=== PATIENT | male | born 1950 | race Caucasian/White ===

== ENCOUNTER 2016-06-10 07:42 | Inpatient (IN) | payer OTHER ==
[~2016-06-10] VITALS: Ht 188 cm; Wt 101.0 kg
--- NOTE | 2016-06-10 08:04 | RADRPT ---
PROCEDURE: CT Brain without. CLINICAL INDICATION: Weakness TECHNIQUE: A CT of the brain was performed utilizing axial sections from the skull base through th e vertex without contrast. The scan was reviewed in soft tissue brain and high frequency resolution bone algorithm windows. Images were reviewed on a high-resolution PACS workstation. The exam CTDI = 45.01 mGy, and the DLP = 720.23 mGy-cm. COMPARISON: None available FINDINGS: There is a right thalamic hemorrhage measuring 2.9 x 2.6 x 1.7 cm. Hemorrhage is seen within the fr ontal horns of the lateral ventricles, third and fourth ventricles. There is mild dilatation of the right lateral ventricle. There is midline shift of the septum pellucidum to the left measuring ritu roximately 5.8 mm. The sood-white differentiation is well preserved. The basal cisterns are patent. The posterior fossa is unremarkable. Vascular calcifications are noted within the intracranial por tions of the vertebral and internal carotid arteries. The visualized portions of the orbits are unremarkable. The paranasal sinuses and mastoid air cells are clear. No calvarial fracture or abnormality are identified. The soft tissues are unremarkable . IMPRESSION: 1. Right thalamic hemorrhage measuring 2.9 x 2.6 x 1.7 cm. There is hemorrhage noted within the fr ontal horn of the lateral ventricles, third and fourth ventricles. 2. Mild dilatation of the right lateral ventricle. The septum pellucidum is shifted to the left ap proximately 5.8 mm. 3. Arterial atherosclerosis. Critical results were discussed with Dr. Carrillo on 06/10/2016 at 8:00 AM RPTAT: HH .Sadie Ireland MD, Date Time Electronically viewed and signed by .Sadie Ireland MD, on 06/10/2016 08:04 .Amauri/
[2016-06-10 08:06] LABS: BASOPHILS % 0.4 % (0.0-2.0); EOSINOPHILS % 0.9 % (0.0-7.0); HEMATOCRIT 41.8 % (42.0-52.0); HEMOGLOBIN 14.2 g/dl (14.0-18.0); LYMPHOCYTES # 0.8 10^3/ul (0.8-2.9); LYMPHOCYTES % 15.9 % (15.0-51.0); MEAN CORPUSCULAR HEMOGLOBIN 32.8 pg (29.0-33.0); MEAN CORPUSCULAR VOLUME 96.5 fl (82.0-101.0); MEAN PLATELET VOLUME 6.9 fl (7.4-10.4); MONOCYTE # 0.5 10^3/ul (0.3-0.9); NEUTROPHIL # 3.7 10^3/ul (1.6-7.5); NEUTROPHILS % 73.8 % (39.0-77.0); PLATELET COUNT 179 10^3/UL (140-440); RED BLOOD COUNT 4.34 10^6/ul (4.70-6.10); RED CELL DISTRIBUTION WIDTH 13.4 % (11.5-14.5)
--- NOTE | 2016-06-10 08:06 | ERA ---
ER Documentation Chief Complaint Date/Time DATE: 06/10/16 TIME: 08:02 Chief Complaint HPI 65-year-old male history of hypertension who presents with sudden severe headache via EMS. The patient was a stroke code from the field because of headache and left-sided deficits. It appears that 1 hour prior to arrival patient describes sudden onset of right-sided severe headache that was described as 10 out of 10. He denies any motor weakness however EMS noted that the patient was listing slightly to the left with some delay in motor movement of the left upper extremity. The patient states that his headache is now 4 out of 10. He denies any vision changes, no prodrome of chest pain or shortness of breath, no neck pain. ROS All systems reviewed and are negative except as per history of present illness. Medications Home Meds Reported Medications Losartan Potassium* (Losartan Potassium*) 100 Mg Tablet, 100 MG PO DAILY, TAB 06/10/16 Amlodipine Besylate* (Amlodipine Besylate*) 10 Mg Tablet, 10 MG PO DAILY, #30 TAB 06/10/16 Allergies Allergies: Coded Allergies: No Known Allergy (Unverified , 06/10/16) PMhx/Soc Hypertension FmHx Family History: No diabetes Physical Exam Vitals Vital Signs Date Time Temp Pulse Resp B/P Pulse Ox O2 Delivery O2 Flow Rate FiO2 06/10/16 08:04 Nasal Cannula 2 06/10/16 08:02 97.6 74 18 135/80 99 Physical Exam General: Well developed, well nourished, no acute distress Head: Normocephalic, atraumatic. Eyes: Pupils equally reactive, EOM intact ENT: Moist mucous membranes Neck: Supple, no lymphadenopathy Respiratory: Lungs clear bilaterally, no distress Cardiovascular: RRR, no murmurs, rubs, or gallops Abdominal: Soft, non-tender, non-distended, no peritoneal signs : Deferred MSK: No edema, no unilateral swelling, 5/5 strength Neurologic: Alert and oriented, moving all extremities, normal speech, no focal weakness, no cerebellar signs, no pronator drift, normal rapid alternating movements Skin: No rash Psych: Normal mood Result Diagram: 06/10/16 0750 06/10/16 0750 Results 24 hrs Laboratory Tests Test 06/10/16 07:50 Activated Partial Thromboplast Time 20.9Sec Anion Gap 13 Basophils # 0.010^3/ul Basophils % 0.4% Blood Morphology Comment Blood Urea Nitrogen 22mg/dl Calcium Level 9.4mg/dl Carbon Dioxide Level 28mmol/L Chloride Level 103mmol/L Creatinine 0.96mg/dl Eosinophils # 0.010^3/ul Eosinophils % 0.9% Glucose Level 118mg/dl Hematocrit 41.8% Hemoglobin 14.2g/dl Hemoglobin A1c 5.1% INR International Normalized Ratio 0.93 Lymphocytes # 0.810^3/ul Lymphocytes % 15.9% Mean Corpuscular Hemoglobin 32.8pg Mean Corpuscular Hemoglobin Concent 34.0g/dl Mean Corpuscular Volume 96.5fl Mean Platelet Volume 6.9fl Monocytes # 0.510^3/ul Monocytes % 9.0% Neutrophils # 3.710^3/ul Neutrophils % 73.8% Nucleated Red Blood Cells # 0.010^3/ul Nucleated Red Blood Cells % 0.0/100WBC Platelet Count 21064^3/UL Potassium Level 4.4mmol/L Prothrombin Time 12.5Sec Prothrombin Time Ratio 1.0 Red Blood Count 4.3410^6/ul Red Cell Distribution Width 13.4% Sodium Level 140mmol/L Troponin I < 0.010ng/ml White Blood Count 5.010^3/ul Procedures/MDM EKG, MONITORS, & DIAGNOSTIC IMAGING: EKG: I reviewed and interpreted a 12-lead EKG. Rhythm: Normal sinus rhythm Ectopy: None Arrhythmia: None Intervals: No abnormalities ST segments: No elevations or depressions T waves: No contiguous inversions Interpretation: No acute cardiac ischemia Chest x-ray: I reviewed and interpreted a 1 view of the chest Mediastinum: No enlargement Cardiac silhouette: No cardiomegaly Airspace: Clear lung arboleda bilaterally without evidence of pneumothorax Bones: No evidence of fracture Interpretation: No acute cardiopulmonary process CT Brain: Verbal report with a right thalamic acute hemorrhage with slight shift of the septum pellucidum but no falcine midline shift FORMAL IMPRESSION: 1. Right thalamic hemorrhage measuring 2.9 x 2.6 x 1.7 cm. There is hemorrhage noted within the frontal horn of the lateral ventricles, third and fourth ventricles. 2. Mild dilatation of the right lateral ventricle. The septum pellucidum is shifted to the left approximately 5.8 mm. 3. Arterial atherosclerosis. CTA Head and Neck: PENDING LAB INTERPRETATION: No coagulopathy MEDICAL DECISION MAKING: The patient presents with sudden onset of headache. He has some subtle left- sided deficits that appear to be improving. His sudden onset of headache is very concerning for possible intracranial hemorrhage. Consider possible subarachnoid hemorrhage versus hemorrhagic bleed. The patient did have some transient left-sided neurologic deficits, the patient was called as a stroke code from the field and taken directly to CT. ER COURSE: Stroke assessment and timing: Onset of symptoms: Approximately 6:45 AM Arrival to ED: 7:47 AM Stroke code activation: 7:42 AM Patient taken to CT scan: 7:47 AM Patient returns from CT: 7:54 AM Initial neurology evaluation: Not required Conversation(s) with neurology: 809AM NIHSS: 0 TPA decision-making: The patient is not a TPA candidate given intracranial hemorrhage Stroke neurologist on-call: Dr. Rey Neurosurgeon on-call: Dr. Calles Recommendations: CTA head and neck, repeat CAT scan in the morning, blood pressure was systolic less than 140 no seizure medications. Likely medical management, no indication for surgical intervention at this time. Dr. calles is en route to see the patient. Critical Care Note: Total time: 43 minutes Indication/Organ System Threat: Acute neurologic deficit and stroke code activation that requires emergent evaluation and assessment to prevent neurologic compromising collapse. I spent the above amount of critical care time with the patient, not including billable procedures. This included chart review, consultations, repeat bedside evaluations, and titration of appropriate medications to prevent cardiopulmonary or respiratory collapse. I kept the patient and/or family informed of laboratory and diagnostic imaging results throughout the emergency room course. DISPOSITION PLAN: Intensive care unit CONSULTATION: Accepting care team and consultations: I discussed the current laboratory data, diagnostic imaging and emergency care provided. Admitting team: Dr. Hollis Admitting team indication: Insurance directed Consulting services: Dr. calles, neurosurgery Departure Diagnosis: Primary Impression: Hemorrhagic stroke Condition: ELE Ellis MD Jun 10, 2016 08:06
[2016-06-10 08:07] LABS: CONDITION 1
[2016-06-10 08:15] LABS: INR 0.93; PROTIME 12.5 Sec (12.2-14.2)
[2016-06-10 08:16] LABS: PARTIAL THROMBOPLASTIN TIME 20.9 Sec (25.0-35.0)
--- NOTE | 2016-06-10 08:22 | RADRPT ---
PROCEDURE: XR Chest. CLINICAL INDICATION: Stroke. TECHNIQUE: Single frontal chest x-ray. COMPARISON: None available. FINDINGS: The cardiomediastinal silhouette is unremarkable. Aortic atherosclerotic vascular calcifications are identified. Mild bibasilar subsegmental atelectasis is noted. No pneumothorax, pleural effusion or consolidatio n is seen. No acute osseous abnormality is noted. IMPRESSION: 1. Mild bibasilar subsegmental atelectasis. 2. Aortic atherosclerosis. 3. Otherwise no acute cardiopulmonary abnormality. RPTAT: UU .Jacobo Prcie MD, MD Date Time Electronically viewed and signed by .Jacobo Price MD, on 06/10/2016 08:21 .N/
[2016-06-10 08:23] LABS: CHLORIDE 103 mmol/L (97-110); POTASSIUM 4.4 mmol/L (3.5-5.1); SODIUM 140 mmol/L (135-144)
[2016-06-10] MEDS ORDERED: AMLO-147 PO (08:24)
[2016-06-10] MEDS ORDERED: LOSA100T7 PO (08:25)
[2016-06-10 08:26] LABS: ANION GAP 13 (8-16); BLOOD UREA NITROGEN 22 mg/dl (7-20); CARBON DIOXIDE 28 mmol/L (21-31); CREATININE 0.96 mg/dl (0.61-1.24); GLUCOSE 118 mg/dl (70-220)
[2016-06-10 08:27] LABS: CALCIUM 9.4 mg/dl (8.4-10.2)
[2016-06-10 08:42] LABS: TROPONIN-I < 0.010 ng/ml (0.00-0.12)
[2016-06-10] MEDS ORDERED: IOHEXOL 100 ML ONE (09:22)
[2016-06-10] MEDS ORDERED: SOD CHLORIDE 0.9% 100 ML ONE (09:22)
[2016-06-10] MEDS ORDERED: morphine 4 MG/ML VIAL IV STA (09:51)
[2016-06-10] MEDS ORDERED: ONDANSETRON 4 MG INJ IV STA (09:51)
[2016-06-10] MEDS ORDERED: niCARdipine-D5W 0.1MG/ML DRIP 200 ML IV STA (09:51)
--- NOTE | 2016-06-10 10:26 | RADRPT ---
PROCEDURE: CTA head and neck CLINICAL INDICATION: Weakness. Intracranial hemorrhage. History of hypertension. TECHNIQUE: The study was performed utilizing multidetector CT scanner. Direct thin section axial s ections were obtained through the head and neck after the uneventful administration of 85 cc of Omni paque-350 nonionic intravenous contrast material. Coronal and sagittal as well as maximal intensity projection reformations were obtained. 3-D images were made. The images were reviewed on a PACS [employer]. One or more the following does reduction techniques were utilized: Automated exposure con trol, adjustment of themA/ or kV according to patient's size, or use of iterative reconstruction sade hnique. The total CTDIvol is 82.5, 17.34 mGy and the DLP is 768.69 mGy-cm. COMPARISON: Brain CT of the same day. FINDINGS: CTA NECK: The origins of the great vessels off the aortic arch are patent without significant stenosis. Mild a therosclerotic calcifications of bilateral carotid bulbs are noted without significant associated st enosis by NASCET criteria. The common carotid and internal carotid arteries are patent without signi ficant stenosis by NASCET criteria. Direct measurement of distal internal carotid arteries was perfo rmed. The vertebral arteries are also patent without high-grade stenosis. CTA BRAIN: Right thalamic hemorrhage measuring 3 cm in maximum diameter without significant interval change com pared to recent brain CT. Intraventricular hemorrhage is again noted within the frontal horn of the lateral ventricles, third and fourth ventricles. There is significant mass effect on third ventricle and approximately 6 mm leftward midline shift as well as similar mild dilatation of the right later al ventricle concerning for trapping . The internal carotid arteries demonstrate mild atherosclerotic calcifications without significant st enosis. The proximal middle cerebral arteries and anterior cerebral arteries are patent without sign ificant stenosis. Atherosclerotic calcification of proximal bilateral intradural vertebral arteries are noted with associated moderate stenosis on the left and mild on the right. The remainder of in tracranial vertebral arteries, basilar artery, and posterior cerebral arteries are also unremarkable without significant stenosis. No aneurysm or vascular malformation is identified. Paranasal sinuses demonstrate mild to moderate scattered mucosal thickening more pronounced in maxil karissa sinuses, ethmoid air cells and left sphenoid sinus. There are multilevel moderate to marked degenerative changes of cervical spine with decreased disk spaces and osteophytosis most pronounced at C6-C7. Posterior disk osteophyte complex at C6-C7 contr ibutes to moderate spinal canal stenosis. This study is not tailored to assess these. IMPRESSION: 1. Similar right thalamic and intraventricular hemorrhage without significant interval change gene red to recent brain CT. Significant mass effect on third ventricle and approximately 6 mm leftward m idline shift as well as similar mild dilatation of the right lateral ventricle concerning for hydroc ephalus and trapping 2. No CTA evidence of aneurysm or vascular malformation. However recommend follow-up CTA after reso lution of the hematoma to exclude underlying lesion. 3. Moderate left and mild right stenosis of the proximal intradural vertebral artery. 4. Otherwise mild scattered atherosclerosis without significant stenosis of major intracranial and neck arteries. Critical result: A call report was made and above findings were discussed and acknowledged by Dr. Fransisco salas on 06/10/2016 10:06 AM. RPTAT: UU .Jacobo Price MD, Date Time Electronically viewed and signed by .Jacobo Price MD, on 06/10/2016 10:26 .N/
[2016-06-10] MEDS ORDERED: ACETAMINOPHEN 325 MG TAB PO PRN (11:30)
[2016-06-10] MEDS ORDERED: ACETAMINOPHEN 650MG/20.3ML CUP PO PRN (11:30)
[2016-06-10] MEDS ORDERED: hydrALAzine 20 MG INJ IV PRN (11:30)
[2016-06-10] MEDS ORDERED: ONDANSETRON 4 MG INJ IV PRN (11:30)
[2016-06-10] MEDS ORDERED: DOCUSATE SODIUM 100 MG CAP PO PRN (11:30)
[2016-06-10] MEDS ORDERED: NITROGLYCERIN (SL) 0.4 MG TAB SL PRN (11:30)
--- NOTE | 2016-06-10 12:11 | CONS ---
DATE OF ADMISSION: 06/10/2016 DATE OF CONSULTATION: 06/10/2016 TYPE OF CONSULTATION: Neurology. REQUESTING PHYSICIAN: Dr. Mario Carrillo INDICATION FOR CONSULTATION: Intracranial hemorrhage. HISTORY OF PRESENT ILLNESS: The patient is a 65-year-old right-handed male with history of hypertension who presented to the ER after having sudden onset of headaches. The patient stated that he felt he almost was going to pass out, but did not. He also felt some generalized weakness on his left side. Emergency services were called and the patient was brought to the ER. The patient's headache has somewhat improved, but he states he still feels some pressure behind his eyes. He denies any visual changes such as double vision or blurry vision, numbness, tingling, weakness or bowel or bladder issues. He denies any speech difficulties. A CT scan of the head was performed which showed a left thalamic bleed approximately 2 x 2 cm with extension into the ventricular system with some blood in the third and fourth ventricles as well as the right lateral ventricle. There is some asymmetry and slight dilatation of the right frontal horn compared to the left. PAST MEDICAL HISTORY: Significant for hypertension. Patient denies diabetes, respiratory renal or gastrointestinal problems. PAST SURGICAL HISTORY: Significant for gastric band surgery 7 years ago. MEDICATIONS: Include: 1. Losartan. 2. Amlodipine. ALLERGIES: NO KNOWN DRUG ALLERGIES. FAMILY HISTORY: The patient has a sister who has had multiple strokes. SOCIAL HISTORY: The patient is single. He has a daughter. He is a nonsmoker, but admits to drinking alcohol daily, generally hard liquor. He states a few glasses. He denies any symptoms if he does not drink for a few days. 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 REVIEW OF SYSTEMS: A 12-point review of systems performed. Pertinent positives and negatives listed in history of present and below. CONSTITUTIONAL: Denies fevers, chills, or weight loss. HEMATOLOGIC: Denies any history of easy bruising or bleeding. Patient denies taking any blood thinning medications. PHYSICAL EXAMINATION: VITAL SIGNS: The patient's temperature 97.6, pulse 74, respirations 18, blood pressure 135/80, though it has gone up to 170/110 and saturating 99% on room air. GENERAL: The patient is well-developed, well-nourished, late middle-aged male lying in the hospital bed in no acute distress. HEAD AND NECK: The patient is normocephalic, atraumatic. LUNGS: Clear to auscultation. CARDIAC: Regular rate and rhythm. VASCULAR: No carotid bruit bilaterally. 2+ radial and dorsalis pedis pulses. EXTREMITIES: No clubbing, cyanosis, or edema. ABDOMEN: Nontender, nondistended, soft. NEUROLOGIC: The patient is awake, alert, and oriented x3. Speech is fluent though he has some slight dysarthric. He follows commands readily and appropriately. He has intact remote, immediate and recent memory and has normal attention and concentration, although he does appear to have some slight word finding problems. Cranial nerves II through XII were serially tested and are intact: Specifically II: visual arboleda full to confrontation and normal visual acuity corrected. III, IV and : Extraocular muscles intact but patient may have a slight left medial deviation of the left eye and therefore some disconjugate gaze, though again he denies any diplopia. V: Normal facial sensation bilaterally. VII: Face symmetrical dynamically and statically. VIII : Grossly normal auditory acuity. IX: Symmetrical palate raise. XI: 5/5 sternocleidomastoid muscle and shoulder shrug. XII: No tongue deviation when protruded. His motor exam is 5/5 bilaterally upper and lower extremities, though he may have a slight left pronator drift. Deep tendon reflexes are 1+ throughout with no clonus, Babinski, or Alexi sign. The patient reports normal sensation and light touch throughout. Gait not assessed secondary to condition. LABORATORY DATA: Patient's white count 5.0, hemoglobin 14.2, platelets 179. His coagulation panels PT of 12.5, INR of 0.93. Sodium was 140, BUN and creatinine 22 and 0.96 and a glucose of 118. REVIEW OF RADIOGRAPHIC RESULTS: The patient had a CT of the brain as well as CT angiogram 2 hours later. The radiologist, Dr. Sadie Ireland impression is the patient has a right thalamic hemorrhage measuring 2.9 x 2.6 x 1.7 cm and a hemorrhage in the right frontal horn and lateral ventricle, third and fourth ventricles. There is mild dilatation of the right lateral ventricle and a septum pellucidum was shifted approximately 5.8 mm to the left and there is arterial atherosclerosis. I reviewed this study and agree with this interpretation. I also reviewed the CT angiogram which does not have a formal report yet but per Dr. Carrillo who spoke to the radiologist, there was no evidence of any vascular abnormality. I do not see evidence of an AVM or aneurysm on my evaluation. The ventricular size and bleed appears stable in the interval scan. ASSESSMENT AND PLAN: A 62-year-old male with thalamic hemorrhage with intraventricular extension. I discussed recent signs, symptoms, physical exam, and radiographic findings with the patient. I discussed the nature of hemorrhagic strokes as well as intraventricular hemorrhage. I explained that such strokes generally do not show benefit from operative decompression or intervention. However, the patient may develop hydrocephalus that may be symptomatic to require a ventriculostomy or possible shunt. I discussed these procedures and the indications. The patient only appears to be clearly symptomatic from a headache and otherwise awake, alert and following commands. I explained that should his neurologic exam significantly deteriorate and then a repeat CT can be performed to assess for any progressive dilatation of ventricles. Otherwise, the patient should simply have a repeat CT scan in the morning. I explained that typically the bleeding will not progress after 24 hours, though he still has a risk of progressive hydrocephalus for a couple of days or perhaps in a delayed fashion. I explained the blood may clear out and the patient may be able to clear the blood and resume normal circulation, but the patient should be observed as this may not occur and the patient may develop increasing pressure. The patient will therefore be admitted to ICU for observation by the medical service. Anticonvulsants are not generally indicated. The patient has normal coagulation panel now. Normal coagulation numbers and platelet function should be normal as he denies taking any medications. Blood pressure should be maintained systolic less than 150 and the patient is currently on Cardene, being titrated to lower the blood pressure. The patient expressed understanding and agreement with this plan of care. Billing note greater than 60 minutes critical care, neurologic system. Dictated By: ANATOLIY CAMPOS MD, LG/CHELY Conf#: [id number] DID#: [id number] CC: MARIO CARRILLO MD;*EndCC* MTDD
--- NOTE | 2016-06-10 12:16 | CONS ---
Date/Time of Note Date/Time of Note DATE: 06/10/16 TIME: 12:00 Assessment/Plan Assessment/Plan Chief Complaint/Hosp Course 65 year old M with hx of hypertension, essential tremor presents with severe headache in the setting of acute right thalamic hemorrhage and elevated blood pressure. Initial CTH shows acute right thalamic hemorrhage 2.9 x 2.6 x 1.7 cm with intraventricular hemorrhage, midline shift and obstructive hydrocephalus dilated right lateral ventricle. CTA shows no underlying lesion at this time. Plan: -repeat Head CT planned for tomorrow morning for surveillance -appreciate neurosurgery consultation -continue frequent neurochecks q2h to evaluate for signs of herniation- decreased arousal, change in pupillary size, development of right sided weakness these changes in exam should prompt an immediate head ct -maintain BP<140/90 may continue on nicardipine drip -holding antiplatelets -ECHO follow up -PT/OT/Speech evaluation -DVT ppx with SCD -planned for ICU admission -will continue to follow Problems: Consultation Date/Type/Reason Admit Date/Time 06/10/2016 Date of Consultation: Jun 10, 2016 Type of Consultation: neurology Reason for Consultation right thalamic ICH Referring Provider: OLAYINKA HANNA MD Hx of Present Illness 65 year old right handed male with past medical history of hypertension, essential tremor presented with severe headache that began this morning at 6 am while at work prompting admission with acute right thalamic hemorrhage. 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 On admission SBP elevated to 170 range, he was initiated on nicardipine drip for optimal control. Initial Head CT shows 2.9 x 2.6 x 1.7 cm right thalamic hemorrhage with intraventricular extension and mild compensatory dilation of the right lateral ventricle, slight temporal horn enlargement also noted with midline shift approx 5.[address] report. CTA Head/Neck obtained showed no underlying lesion, diffuse intracranial atherosclerosis with no significant occlusion of major vasculature. He has no prior history of previous admission for stroke, he is reportedly compliant with all anti-hypertensives. He denies current anti-platelet use, no hx of cardiac disease. 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 Alcohol Use: none Smoking Status: Never smoker Drug Use: none Exam/Review of Systems Vital Signs Vitals Vital Signs Date Time Temp Pulse Resp B/P Pulse Ox O2 Delivery O2 Flow Rate FiO2 06/10/16 11:45 98.0 89 18 134/85 99 Room Air 06/10/16 08:04 2 Exam appears stated age patient is alert and awake oriented to himself, hospital and current date in mild distress due to headache attentive, is able to count backwards 20 --> 1 without difficulty no aphasia, no anomia able to read stroke cards well and identifies all objects well no visuospatial neglect CN: JOSELITO, VFF, right beating nystagmus upgaze nystagmus and skew deviation noted mild left NLF flattening palate upgoing uvula midline scm/trap intact, tongue midline Motor: right hand finger curl 4-/5 strength on right arm compared to left more distally weak left arm 5/5 bilateral LE 5/5 no drift in extremities Sensory: extinguishes to DSS on left arm and leg sensory neglect present to left Coordination no ataxia Reflexes 2+ throughout both toes withdraw to tactile stimulation Gait not tested Results Result Diagram: 06/10/16 0750 06/10/16 0750 Results 24 hrs Laboratory Tests Test 06/10/16 07:50 Activated Partial Thromboplast Time 20.9 L Anion Gap 13 Basophils # 0.0 Basophils % 0.4 Blood Morphology Comment Blood Urea Nitrogen 22 H Calcium Level 9.4 Carbon Dioxide Level 28 Chloride Level 103 Creatinine 0.96 Eosinophils # 0.0 Eosinophils % 0.9 Glucose Level 118 Hematocrit 41.8 L Hemoglobin 14.2 Hemoglobin A1c 5.1 INR International Normalized Ratio 0.93 Lymphocytes # 0.8 Lymphocytes % 15.9 Mean Corpuscular Hemoglobin 32.8 Mean Corpuscular Hemoglobin Concent 34.0 Mean Corpuscular Volume 96.5 Mean Platelet Volume 6.9 L Monocytes # 0.5 Monocytes % 9.0 Neutrophils # 3.7 Neutrophils % 73.8 Nucleated Red Blood Cells # 0.0 Nucleated Red Blood Cells % 0.0 Platelet Count 179 Potassium Level 4.4 Prothrombin Time 12.5 Prothrombin Time Ratio 1.0 Red Blood Count 4.34 L Red Cell Distribution Width 13.4 Sodium Level 140 Troponin I < 0.010 White Blood Count 5.0 Medications Medications Current Medications Amlodipine Besylate (Norvasc) 10 mg DAILY PO ; Start 06/11/16 at 09:00; Status UNV Losartan Potassium (Cozaar) 50 mg BID PO ; Start 06/10/16 at 21:00; Status UNV Hydralazine HCl 10 mg 10 mg Q6H PRN IV ELEVATED BLOOD PRESSURE; Start 06/10/16 at 11:30; Status UNV Dextrose/Sodium Chloride (D5-1/2ns) 1,000 ml @ 60 mls/hr [id number] IV ; Start 06/10/16 at 12:00 Ondansetron HCl (Zofran Inj) 4 mg Q6H PRN IV NAUSEA AND/OR VOMITING; Start 06/10 at 11:30; Status UNV Nitroglycerin (Nitroglycerin (Sl Tab) 0.4 Mg) 1 tab Q5M PRN SL CHEST PAIN; Start 06/10/16 at 11:30; Status UNV Acetaminophen (Tylenol Liquid) 650 mg Q6H PRN PO PAIN LEVEL 1-3 OR FEVER; Start 06/10/16 at 11:30; Status UNV Acetaminophen (Tylenol Tab) 650 mg Q6H PRN PO PAIN LEVEL 1-3 OR FEVER; Start at 11:30; Status UNV Docusate Sodium (Colace) 100 mg Q12H PRN PO CONSTIPATION; Start 06/10/16 at 11: 30; Status UNV Famotidine (Pepcid Iv) 20 mg Q12 IV ; Start 06/10/16 at 21:00; Status UNV Levetiracetam (Keppra) 500 mg BID PO ; Start 06/10/16 at 21:00; Status UNV Acetaminophen (Tylenol Tab) 650 mg Q4H PRN PO TEMP GREATER THAN 99.6F; Start at 11:30; Status UNV Docusate Sodium (Colace) 100 mg BID PO ; Start 06/10/16 at 21:00; Status UNV CLIFFORD FELICIANO MD Jun 10, 2016 12:10
[2016-06-10] MEDS: DEXTROSE 5%-0.45% NACL 1,000 ML IV SCH (12:36)
--- NOTE | 2016-06-10 13:33 | RADRPT ---
PROCEDURE: CT Head without contrast. CLINICAL INDICATION: worsening mental status. Intracranial bleed TECHNIQUE: Continuous axial CT images were obtained from the base of skull to the vertex. No cont rast was administered. The calculated radiation dose measures 810 mGy centimeters. The CTDI measures 45 mGy COMPARISON: 06/10/2016 at 07:43 a.m. FINDINGS: There is again identified a parenchymal bleed centered in the right thalamus, measuring 3.2 x 2.7 cm . There is blood extending to the third ventricle, and in the fourth ventricle. There is mild shif t of the midline to the left, up to 4 mm. There is small bilateral lateral ventricle intraventricul ar blood, increased. There is mild dilation of the lateral ventricles, which appears slightly incre ased as well. The bifrontal diameter measures 3.8 cm, previously 3.6 cm. There is prominent intracranial vascular calcification. The bony calvarium is intact. The orbital soft tissue contents are unremarkable. There is mild muco heather thickening in the paranasal sinuses. IMPRESSION: 1. Right thalamic parenchymal bleed, 3.2 x 2.7 cm. This appears similar in size compared to prior examination, with differences in measurement likely technical. 2. Mild midline shift to the left up to 4 mm. 3. Intraventricular blood in the lateral ventricles, third ventricle, and fourth ventricle. Blood i n the lateral ventricles is slightly increased. 4. Mild hydrocephalus, which appears slightly increased. 5. Prominent intracranial vascular calcification. Mild chronic sinus disease change. RPTAT: DD .Alex Garcia MD, MD Date Time Electronically viewed and signed by .Alex Garcia MD, MD on 06/10/2016 13:33 .T/
[2016-06-10] MEDS: ACETAMINOPHEN 325 MG TAB PO PRN ×2 (13:51→19:10)
--- NOTE | 2016-06-10 14:16 | RADRPT ---
Echocardiogram Report Patient Name: LEXIS GARCIA Gender: Male Date: 1950 Study Date: 10-Jun-2016 Flight Coordinator: Keron Medley RDCS Location: [facility] Ref. Physician: OLAYINKA HANNA Quality: Good Procedures: Transthoracic echocardiogram with complete 2D, M-Mode, and doppler examination. Indications: Cerebrovascular Accident. 2D/M Mode Doppler Measurement Value Normal Ranges Measurement Value Normal Ranges LVIDd 2D 5.6 3.5 - 5.6 cm AV Peak Dennys 1.6 m/sec LVIDs 2D 3.1 2.1 - 4.1 cm AV Peak PG 9.7 mmHg LVPWd 2D 0.7 0.6 - 1.1 cm LVOT Peak Dennys 1.3 m/sec IVSd 2D 0.8 0.6 - 1.1 cm LVOT Peak PG 7.2 mmHg AoR Diam 2D 3.8 2.0 - 3.7 cm MV E Peak Dennys 0.5 m/sec EDV 2D 153.0 cm3 MV A Peak Dennys 0.8 m/sec ESV 2D 29.6 cm3 MV E/A 0.7 LA Dimen 2D 3.6 2.3 - 4.0 cm MV Decel Time 83 msec MV Decel Coleman 6 MV E/A 0.7 Findings Left Ventricle: Normal left ventricular systolic function. Normal left ventricular cavity size. Normal left ventricular wall thickness. Ejection fraction is visually estimated at 65 %. Tissue Doppler/Mitral Doppler indices are consistent with impaired relaxation (Stage I diastolic dysfunction). Right Ventricle: Normal right ventricular size. Normal right ventricular systolic function. Left Atrium: The left atrium is normal in size. Right Atrium: The right atrium is normal in size. Mitral Valve: Normal appearance and function of the mitral valve with trace physiologic regurgitation. Aortic Valve: Normal appearance of the aortic valve. No significant aortic stenosis or insufficiency. Tricuspid Valve: Normal appearance of the tricuspid valve. Unable to obtain RVSP due to minimal presence of tricuspid regurgitation. Pericardium: Normal pericardium with no significant pericardial effusion. Aorta: Normal aortic root. IVC: Normal size and normal respiratory collapse consistent with normal right atrial pressure. Conclusions Normal left ventricular systolic function. Normal left ventricular cavity size. Normal left ventricular wall thickness. Ejection fraction is visually estimated at 65 %. Tissue Doppler/Mitral Doppler indices are consistent with impaired relaxation (Stage I diastolic dysfunction). No significant valvular stenosis or regurgitation seen. Unable to obtain RVSP due to minimal presence of tricuspid regurgitation. RA pressure is 3 mmHg. Electronically Signed By: Tony Gonzalez 10-Jun-2016 14:15:49 -0800 Patient Name: LEXIS GARCIA Study Date: 10-Jun-[id number]
--- NOTE | 2016-06-10 17:28 | HP ---
DATE OF ADMISSION: 06/10/2016 CONSULTANTS: 1. Neurosurgery. 2. Neurology. CHIEF COMPLAINT: Lightheadedness and dizziness. HISTORY OF PRESENT ILLNESS: This is a very pleasant 65-year-old gentleman with past medical history of hypertension who was at his normal state of health this morning and went to work. While he was at work, he had a severe headache. He had lightheadedness and dizziness and acute headache and star andry having diaphoresis and cold sweats. This occurred around 6:00 a.m. and his friends/colleagues tato Hilario and the patient was brought into the emergency room at [facility] via EM S. CT of the head was obtained which showed acute right thalamic hemorrhage. The patient was found to have elevated systolic blood pressure range of 170s and was initiated on nicardipine drip in the course of emergency room. His blood pressure is better controlled at this time. The initial CT of the head showed 2.9 x 2.6 x 1.7 cm right thalamic hemorrhage with intraventricular extension and mi ld compensatory dilation of the right lateral ventricle, slight temporal horn enlargement, also note d midline shift approximately 5.[address] report[address] Neurosurgery anger control counselor was consulted and the alcides ent does not have any symptoms at that time; therefore, no surgical intervention was recommended. T he CT of the head and neck was obtained and showed no underlying lesion, diffuse intracranial athero sclerosis and no significant occlusion of major vascular. The patient does not have any previous his tory of stroke, coronary artery disease. He denies current antiplatelet or anticoagulants medicatio n. No history of coronary artery disease. At this time, patient is lying in bed comfortably withou t any distress. He is awake, alert, oriented. He is able to answer my questions properly. Denies any fever, chills, weight gain, weight loss, anorexia. No chest pain, palpitations, edema, orthopne a. No change in visual acuity, diplopia, photophobia. Positive for headache which has resolved. N o upper or lower extremity weakness or any other discomfort. There has not been any recent travel h istory. No sick contact. No dysuria, hematuria, urgency, incontinence. No seizure activity or any other discomfort. PAST MEDICAL AND SURGICAL HISTORY: Hypertension. MEDICATIONS: 1. Amlodipine. 2. Losartan. ALLERGIES: NO KNOWN DRUG ALLERGIES. FAMILY HISTORY: No family history of coronary artery disease, diabetes mellitus or CVA. SOCIAL HISTORY: Positive for daily alcohol intake. No smoking, no illicit drugs. REVIEW OF SYSTEMS: As above per HPI, otherwise 12 review of systems was found to be negative. PHYSICAL EXAMINATION: VITAL SIGNS: Temperature 98.0, pulse 77, respiration 18, blood pressure 128/74, oxygen 99% on room air. GENERAL APPEARANCE: Patient is lying in bed comfortably without any distress. He is awake, alert, oriented. He is able to answer my questions properly. EYES AND ENT: Conjunctivae and lids are normal. Pupils are normal. Extraocular normal. Hearing g rossly normal. Lips are normal. Oral mucosa is moist. NECK: Supple. Trachea is midline. No lymphadenopathy. RESPIRATORY: Effort is normal. Clear to auscultation bilaterally. CARDIOVASCULAR: Normal S1, S2. Regular rhythm and rate. No murmur, no bruits, no edema. Peripher al pulses, radial pulses palpable. Cap refill is normal. CHEST: Normal expansion of thorax during inspiration. GASTROINTESTINAL: Abdomen is soft, nontender, not distended. Bowel sounds present. No guarding, n o rebound. GENITOURINARY: Deferred. MUSCULOSKELETAL: Upper and lower extremities within normal limits. Full range of motion. Strength is 5/5 in both upper and lower extremities. NEUROLOGIC: Cranial nerves II through XII seem grossly intact. PSYCHIATRIC: He is awake, alert, oriented. LABORATORY WORK AND IMAGING: WBC 5.0, hemoglobin 14.3, hematocrit 41.8, platelets 179. Sodium 140, potassium 4.4, chloride 103, bicarbonate 28, BUN 22, creatinine 0.96, glucose 118, hemoglobin 5.1, calcium 9.4. Troponin was negative. CT of the neck shows right thalamic and intravascular hemorrha ge with no significant interval changes compared to recent CT of the brain. Significant mass effect in the third ventricle in approximately 6 mm left fourth midline shift as well as some mild dilatio n of the right lateral ventricle concerning for hydrocephalus and trapping. No CVA evidence of aneu rysm or vascular malformation. Moderate left and mild right stenosis of the proximal intradural francy tebral artery. 2D echocardiogram showed normal left ventricle systolic function. Normal left ventri cular cavity size. Normal left ventricular wall thickness. Ejection fraction visually estimated at 65%. Stage I diastolic dysfunction. No significant valvular stenosis or regurgitation seen. ASSESSMENT AND PLAN: 1. Intracranial hemorrhage. Neurology and Neurosurgery has been consulted. Patient has been place d on Cardene drip. We will continue the patient's blood pressure medication amlodipine and losartan . Also place the patient on hydralazine p.r.n. for systolic blood pressure greater than 165. No potter rgical intervention as per neurosurgery recommendations. PT, OT evaluate and treat. Speech therapy for swallow evaluation. 2. Essential hypertension, better controlled at this time. Continue Cardene drip. Restart patient 's oral antihypertensive medication. Also, patient has been placed on hydralazine p.r.n. 3. For deep venous thrombosis prophylaxis, on SCD. Refrain from using any pharmacologic DVT prophy laxis secondary to intracranial hemorrhage. 4. We will continue to monitor patient closely. Further recommendations, management and treatment as per clinical course. Total amount of time spent for evaluation of patient and admission workup 60 minutes. Dictated By: OLAYINKA HANNA MD PN/NTS Conf#: [id number] DID#: [id number]
[2016-06-10 20:30] VITALS: TEMP 98.8
[2016-06-10] MEDS ORDERED: HYDROmorphONE 1 MG/ML SYG IV STA (20:48)
[2016-06-10] MEDS: DOCUSATE SODIUM 100 MG CAP PO SCH (21:00)
[2016-06-10] MEDS: LOSARTAN 50 MG TAB PO SCH (21:00)
[2016-06-10] MEDS: LEVETIRACETAM 500 MG TAB PO SCH (23:06)
[2016-06-10] MEDS: FAMOTIDINE 20 MG INJ IV SCH (23:06)
[2016-06-11] VITALS (32 sets, daily range): BP systolic 108–155; BP diastolic 78–100; PULSE 56–92; RESP 10–21
[2016-06-11] MEDS: ACETAMINOPHEN 325 MG TAB PO PRN ×3 (01:45→13:27)
[2016-06-11 06:04] LABS: BASOPHILS % 0.4 % (0.0-2.0); EOSINOPHILS % 0.9 % (0.0-7.0); HEMOGLOBIN 14.1 g/dl (14.0-18.0); LYMPHOCYTES # 0.7 10^3/ul (0.8-2.9); LYMPHOCYTES % 12.7 % (15.0-51.0); MEAN CORPUSCULAR HEMOGLOBIN 33.1 pg (29.0-33.0); MEAN CORPUSCULAR HGB CONC 34.3 g/dl (32.0-37.0); MEAN CORPUSCULAR VOLUME 96.5 fl (82.0-101.0); MEAN PLATELET VOLUME 7.4 fl (7.4-10.4); MONOCYTE # 0.5 10^3/ul (0.3-0.9); MONOCYTES % 9.6 % (0.0-11.0); NEUTROPHIL # 3.9 10^3/ul (1.6-7.5); NEUTROPHILS % 76.4 % (39.0-77.0); PLATELET COUNT 166 10^3/UL (140-440); RED BLOOD COUNT 4.25 10^6/ul (4.70-6.10); RED CELL DISTRIBUTION WIDTH 12.7 % (11.5-14.5); UNCORRECTED WBC 5.2 10^3/ul (4.8-10.8); WHITE BLOOD COUNT 5.2 10^3/ul (4.8-10.8)
[2016-06-11 06:23] LABS: CONDITION 1
[2016-06-11 06:32] LABS: POTASSIUM 4.1 mmol/L (3.5-5.1)
[2016-06-11 06:35] LABS: CREATININE 0.75 mg/dl (0.61-1.24)
[2016-06-11 06:36] LABS: CALCIUM 8.8 mg/dl (8.4-10.2); CHOL/HDL RATIO 1.8 RATIO; MAGNESIUM 2.2 mg/dl (1.7-2.5)
--- NOTE | 2016-06-11 08:26 | CONS ---
Date/Time of Note Date/Time of Note DATE: 06/11/16 TIME: 08:21 Assessment/Plan Assessment/Plan Chief Complaint/Hosp Course s/p thalamic ICH with IVH Neurologically stable. f/u CT pending. No indication fot ventriculostomy currently based upon clinical exam but cont. observation and ICU observation, BP control. Problems: Consultation Date/Type/Reason Admit Date/Time Jun 10, 2016 at 23:23 Initial Consult Date 06/10/16 Type of Consultation: Neurosurgery Referring Provider: OLAYINKA HANNA MD 24 HR Interval Summary Free Text/Dictation Patient doing well. Reports headache unchanged 3-09/12. Denies nausea, vomiting or weakness. Denies double vision but reported to nurse earlier. Exam/Review of Systems Vital Signs Vitals Vital Signs Date Time Temp Pulse Resp B/P Pulse Ox O2 Delivery O2 Flow Rate FiO2 06/11/16 06:00 77 17 134/92 100 06/11/16 04:00 98.0 06/11/16 01:00 Nasal Cannula 2.0 Intake and Output 06/10/16 06/10/16 06/11/16 14:59 22:59 06:59 Intake Total 360 ml Output Total 400 ml 600 ml Balance -400 ml -240 ml Exam Constitutional: alert, oriented Psych: no complaints Head: normocephalic Eyes: other (slight left esotropia) Neurological: nl mental status (follows commmandas readily and appropriately, slight left pronator drift otherwise 5/5 motor.Fluent speech, less dysarthria) Results Result Diagram: 06/11/16 0500 06/11/16 0500 Results 24 hrs Laboratory Tests Test 06/10/16 14:31 06/11/16 05:00 Bedside Glucose 108 Anion Gap 15 Basophils # 0.0 Basophils % 0.4 Blood Morphology Comment Blood Urea Nitrogen 12 # Calcium Level 8.8 Carbon Dioxide Level 25 Chloride Level 106 Cholesterol Level 185 Cholesterol/HDL Ratio 1.8 Creatinine 0.75 Eosinophils # 0.0 Eosinophils % 0.9 Glucose Level 83 HDL Cholesterol 98 H Hematocrit 41.0 L Hemoglobin 14.1 Hemoglobin A1c 5.1 LDL Cholesterol, Calculated 70 Lymphocytes # 0.7 L Lymphocytes % 12.7 L Magnesium Level 2.2 Mean Corpuscular Hemoglobin 33.1 H Mean Corpuscular Hemoglobin Concent 34.3 Mean Corpuscular Volume 96.5 Mean Platelet Volume 7.4 Monocytes # 0.5 Monocytes % 9.6 Neutrophils # 3.9 Neutrophils % 76.4 Nucleated Red Blood Cells # 0.0 Nucleated Red Blood Cells % 0.0 Platelet Count 166 Potassium Level 4.1 Red Blood Count 4.25 L Red Cell Distribution Width 12.7 Sodium Level 142 Triglycerides Level 87 White Blood Count 5.2 Medications Medications Current Medications Amlodipine Besylate (Norvasc) 10 mg DAILY PO ; Start 06/11/16 at 09:00 Losartan Potassium (Cozaar) 50 mg BID PO ; Start 06/10/16 at 21:00 Hydralazine HCl 10 mg 10 mg Q6H PRN IV ELEVATED BLOOD PRESSURE; Start 06/10/16 at 11:30 Dextrose/Sodium Chloride (D5-1/2ns) 1,000 ml @ 60 mls/hr [id number] IV Last administered on 06/10/16 12:36; Admin Dose 60 MLS/HR; Start 06/10/16 at 12:00 Ondansetron HCl (Zofran Inj) 4 mg Q6H PRN IV NAUSEA AND/OR VOMITING; Start 06/10 at 11:30 Nitroglycerin (Nitroglycerin (Sl Tab) 0.4 Mg) 1 tab Q5M PRN SL CHEST PAIN; Start 06/10/16 at 11:30 Acetaminophen (Tylenol Liquid) 650 mg Q6H PRN PO PAIN LEVEL 1-3 OR FEVER; Start 06/10/16 at 11:30 Acetaminophen (Tylenol Tab) 650 mg Q6H PRN PO PAIN LEVEL 1-3 OR FEVER Last administered on 06/11/16 06:17; Admin Dose 650 MG; Start 06/10/16 at 11:30 Docusate Sodium (Colace) 100 mg Q12H PRN PO CONSTIPATION; Start 06/10/16 at 11: 30 Famotidine (Pepcid Iv) 20 mg Q12 IV Last administered on 06/10/16 23:06; Admin Dose 20 MG; Start 06/10/16 at 21:00 Levetiracetam (Keppra) 500 mg BID PO Last administered on 06/10/16 23:06; Admin Dose 500 MG; Start 06/10/16 at 21:00 Acetaminophen (Tylenol Tab) 650 mg Q4H PRN PO TEMP GREATER THAN 99.6F; Start at 11:30 Docusate Sodium (Colace) 100 mg BID PO ; Start 06/10/16 at 21:00 ANATOLIY CAMPOS MD Jun 11, 2016 08:25
--- NOTE | 2016-06-11 08:48 | PN ---
Date/Time of Note Date/Time of Note DATE: 06/11/16 TIME: 08:44 Assessment/Plan VTE Prophylaxis VTE Prophylaxis Intervention: SCD's Lines/Catheters IV C[facility]ter Type (from [facility]): Peripheral IV Assessment/Plan Chief Complaint/Hosp Course ASSESSMENT AND PLAN: 1. Intracranial hemorrhage. Neurology and Neurosurgery has been consulted. Status post Cardene drip. We will continue the patient's blood pressure medication schedule amlodipine , losartan and hydralazine p.r.n. for systolic blood pressure greater than 165. No surgical intervention as per neurosurgery recommendations. PT, OT evaluate and treat. Follow-up CT of the brain, if no change in the size of bleed patient may be transferred to telemetry floor Patient has been seen by speech therapy and has been clear to start oral intake 2. Essential hypertension, better controlled at this time. Status post Cardene drip. Continue amlodipine and losartan, also, patient has been placed on hydralazine p.r.n. 3. For deep venous thrombosis prophylaxis, on SCD. Refrain from using any pharmacologic DVT prophylaxis secondary to intracranial hemorrhage. We will continue to monitor patient closely. Further recommendations, management and treatment as per clinical course. Problems: Subjective 24 Hr Interval Summary Free Text/Dictation Patient has been monitored in ICU He denies of any chest pain or shortness of breath Denies of any visual disturbance, dizziness, lightheadedness, weakness in his upper and lower extremity Has been able to tolerate his oral intake without any difficulty Exam/Review of Systems Vital Signs Vitals Vital Signs Date Time Temp Pulse Resp B/P Pulse Ox O2 Delivery O2 Flow Rate FiO2 06/11/16 06:00 77 17 134/92 100 06/11/16 04:00 98.0 06/11/16 01:00 Nasal Cannula 2.0 Intake and Output 06/10/16 06/10/16 06/11/16 15:00 23:00 07:00 Intake Total 360 ml Output Total 400 ml 600 ml Balance -400 ml -240 ml Exam General: The patient is well-developed, Not in acute distress. HEENT: Atraumatic, normocephalic. The pupils are equal and round . Neck: Supple with full range of motion. Chest: Normal expansion of the thorax during inspiration Lungs: Clear to auscultation bilaterally Heart: Normal S1-S2, Regular rhythm and rate. Abdomen: Soft , nontender, nondistended , bowel sounds are present. Extremities: Normal to inspection, no edema no cyanosis Neurologic: Normal mental status,The patient is awake, alert and oriented . Results Result Diagram: 06/11/16 0500 06/11/16 0500 Results 24 hrs Laboratory Tests Test 06/10/16 14:31 06/11/16 05:00 Bedside Glucose 108 Anion Gap 15 Basophils # 0.0 Basophils % 0.4 Blood Morphology Comment Blood Urea Nitrogen 12 # Calcium Level 8.8 Carbon Dioxide Level 25 Chloride Level 106 Cholesterol Level 185 Cholesterol/HDL Ratio 1.8 Creatinine 0.75 Eosinophils # 0.0 Eosinophils % 0.9 Glucose Level 83 HDL Cholesterol 98 H Hematocrit 41.0 L Hemoglobin 14.1 Hemoglobin A1c 5.1 LDL Cholesterol, Calculated 70 Lymphocytes # 0.7 L Lymphocytes % 12.7 L Magnesium Level 2.2 Mean Corpuscular Hemoglobin 33.1 H Mean Corpuscular Hemoglobin Concent 34.3 Mean Corpuscular Volume 96.5 Mean Platelet Volume 7.4 Monocytes # 0.5 Monocytes % 9.6 Neutrophils # 3.9 Neutrophils % 76.4 Nucleated Red Blood Cells # 0.0 Nucleated Red Blood Cells % 0.0 Platelet Count 166 Potassium Level 4.1 Red Blood Count 4.25 L Red Cell Distribution Width 12.7 Sodium Level 142 Triglycerides Level 87 White Blood Count 5.2 Medications Medications Current Medications Amlodipine Besylate (Norvasc) 10 mg DAILY PO ; Start 06/11/16 at 09:00 Losartan Potassium (Cozaar) 50 mg BID PO ; Start 06/10/16 at 21:00 Hydralazine HCl 10 mg 10 mg Q6H PRN IV ELEVATED BLOOD PRESSURE; Start 06/10/16 at 11:30 Dextrose/Sodium Chloride (D5-1/2ns) 1,000 ml @ 60 mls/hr [id number] IV Last administered on 06/10/16t 12:36; Admin Dose 60 MLS/HR; Start 06/10/16 at 12:00 Ondansetron HCl (Zofran Inj) 4 mg Q6H PRN IV NAUSEA AND/OR VOMITING; Start 06/10 at 11:30 Nitroglycerin (Nitroglycerin (Sl Tab) 0.4 Mg) 1 tab Q5M PRN SL CHEST PAIN; Start 06/10/16 at 11:30 Acetaminophen (Tylenol Liquid) 650 mg Q6H PRN PO PAIN LEVEL 1-3 OR FEVER; Start 06/10/16 at 11:30 Acetaminophen (Tylenol Tab) 650 mg Q6H PRN PO PAIN LEVEL 1-3 OR FEVER Last administered on 06/11/16 06:17; Admin Dose 650 MG; Start 06/10/16 at 11:30 Docusate Sodium (Colace) 100 mg Q12H PRN PO CONSTIPATION; Start 06/10/16 at 11: 30 Famotidine (Pepcid Iv) 20 mg Q12 IV Last administered on 06/10/16 23:06; Admin Dose 20 MG; Start 06/10/16 at 21:00 Levetiracetam (Keppra) 500 mg BID PO Last administered on 06/10/16 23:06; Admin Dose 500 MG; Start 06/10/16 at 21:00 Acetaminophen (Tylenol Tab) 650 mg Q4H PRN PO TEMP GREATER THAN 99.6F; Start at 11:30 Docusate Sodium (Colace) 100 mg BID PO ; Start 06/10/16 at 21:00 OLAYINKA HANNA MD Jun 11, 2016 08:48
[2016-06-11] MEDS: LOSARTAN 50 MG TAB PO SCH ×2 (08:54→21:34)
[2016-06-11] MEDS: DOCUSATE SODIUM 100 MG CAP PO SCH ×2 (08:54→21:33)
[2016-06-11] MEDS: LEVETIRACETAM 500 MG TAB PO SCH ×2 (08:54→21:34)
[2016-06-11] MEDS: FAMOTIDINE 20 MG INJ IV SCH ×2 (08:55→21:33)
[2016-06-11] MEDS ORDERED: AMLODIPINE 10 MG TAB PO SCH (09:00)
[2016-06-11] MEDS: NIFEdipine (XL) 30 MG TAB PO SCH ×2 (09:04→21:34)
[2016-06-11] MEDS: DEXTROSE 5%-0.45% NACL 1,000 ML IV SCH (12:22)
--- NOTE | 2016-06-11 15:01 | CONS ---
Date/Time of Note Date/Time of Note DATE: 06/11/16 TIME: 14:53 Consult Date/Type/Reason Admit Date/Time Jun 10, 2016 at 23:23 Initial Consult Date 06/10/16 Type of Consultation: Neurology Reason for Consultation ICH Ordering Provider: OLAYINKA HANNA MD Subjective stable in ICU overnight per sister he did have an episode of confusion, thought he was going home to get clothes able to reorient and back to baseline complaints of headache Objective Vital Signs Date Time Temp Pulse Resp B/P Pulse Ox O2 Delivery O2 Flow Rate FiO2 06/11/16 12:00 98.4 63 15 126/94 99 06/11/16 11:00 Nasal Cannula 3.0 Intake and Output 06/10/16 06/10/16 06/11/16 15:00 23:00 07:00 Intake Total 360 ml Output Total 400 ml 600 ml Balance -400 ml -240 ml General Exam: appears stated age patient is alert and awake oriented to himself, hospital and current date in mild distress due to headache attentive, is able to count backwards 20 --> 1 without difficulty no aphasia, no anomia able to read stroke cards well and identifies all objects well no visuospatial neglect CN: JOSELITO, VFF, right beating nystagmus upgaze nystagmus and skew deviation noted mild left NLF flattening palate upgoing uvula midline scm/trap intact, tongue midline Motor: right hand finger curl 4-/5 strength on right arm compared to left more distally weak left arm 5/5 bilateral LE 5/5 no drift in extremities Sensory: extinguishes to DSS on left arm and leg sensory neglect present to left Coordination no ataxia Reflexes 2+ throughout both toes withdraw to tactile stimulation Results/Medications Result Diagram: 06/11/16 0500 06/11/16 0500 Results 24 hrs Laboratory Tests Test 06/11/16 05:00 Anion Gap 15 Basophils # 0.0 Basophils % 0.4 Blood Morphology Comment Blood Urea Nitrogen 12 # Calcium Level 8.8 Carbon Dioxide Level 25 Chloride Level 106 Cholesterol Level 185 Cholesterol/HDL Ratio 1.8 Creatinine 0.75 Eosinophils # 0.0 Eosinophils % 0.9 Glucose Level 83 HDL Cholesterol 98 H Hematocrit 41.0 L Hemoglobin 14.1 Hemoglobin A1c 5.1 LDL Cholesterol, Calculated 70 Lymphocytes # 0.7 L Lymphocytes % 12.7 L Magnesium Level 2.2 Mean Corpuscular Hemoglobin 33.1 H Mean Corpuscular Hemoglobin Concent 34.3 Mean Corpuscular Volume 96.5 Mean Platelet Volume 7.4 Monocytes # 0.5 Monocytes % 9.6 Neutrophils # 3.9 Neutrophils % 76.4 Nucleated Red Blood Cells # 0.0 Nucleated Red Blood Cells % 0.0 Platelet Count 166 Potassium Level 4.1 Red Blood Count 4.25 L Red Cell Distribution Width 12.7 Sodium Level 142 Triglycerides Level 87 White Blood Count 5.2 Medications Current Medications Losartan Potassium (Cozaar) 50 mg BID PO Last administered on 06/11/16 08:54; Admin Dose 50 MG; Start 06/10/16 at 21:00 Hydralazine HCl 10 mg 10 mg Q6H PRN IV ELEVATED BLOOD PRESSURE; Start 06/10/16 at 11:30 Dextrose/Sodium Chloride (D5-1/2ns) 1,000 ml @ 60 mls/hr [id number] IV Last administered on 06/11/16 12:22; Admin Dose 60 MLS/HR; Start 06/10/16 at 12:00 Ondansetron HCl (Zofran Inj) 4 mg Q6H PRN IV NAUSEA AND/OR VOMITING; Start 06/10 at 11:30 Nitroglycerin (Nitroglycerin (Sl Tab) 0.4 Mg) 1 tab Q5M PRN SL CHEST PAIN; Start 06/10/16 at 11:30 Acetaminophen (Tylenol Liquid) 650 mg Q6H PRN PO PAIN LEVEL 1-3 OR FEVER; Start 06/10/16 at 11:30 Acetaminophen (Tylenol Tab) 650 mg Q6H PRN PO PAIN LEVEL 1-3 OR FEVER Last administered on 06/11/16 13:27; Admin Dose 650 MG; Start 06/10/16 at 11:30 Docusate Sodium (Colace) 100 mg Q12H PRN PO CONSTIPATION; Start 06/10/16 at 11: 30 Famotidine (Pepcid Iv) 20 mg Q12 IV Last administered on 06/11/16 08:55; Admin Dose 20 MG; Start 06/10/16 at 21:00 Levetiracetam (Keppra) 500 mg BID PO Last administered on 06/11/16 08:54; Admin Dose 500 MG; Start 06/10/16 at 21:00 Acetaminophen (Tylenol Tab) 650 mg Q4H PRN PO TEMP GREATER THAN 99.6F; Start at 11:30 Docusate Sodium (Colace) 100 mg BID PO Last administered on 06/11/16 08:54; Admin Dose 100 MG; Start 06/10/16 at 21:00 Nifedipine (Procardia Xl) 30 mg BID PO Last administered on 06/11/16 09:04; Admin Dose 30 MG; Start 06/11/16 at 09:00 Assessment/Plan Chief Complaint/Hosp Course 65 year old M with hx of hypertension, essential tremor presents with severe headache in the setting of acute right thalamic hemorrhage and elevated blood pressure. Repeat Head CT: shows persistent right thalamic ICH, 3.2 x 2.7 cm, appears similar in size with midline shift up to 4 mm intraventricular hemorrhage in lateral ventricle, third, and fourth ventricle slightly increased blood in ventricles mild hydrocephalus, mild increase Plan: -repeat Head CT for any decline in exam -appreciate neurosurgery consultation -continue frequent neurochecks q2h to evaluate for signs of herniation- decreased arousal, change in pupillary size, development of right sided weakness these changes in exam should prompt an immediate head ct -maintain BP<140/90 tapered off cardene and transitioned to oral meds, if additional agent is needed Nifedipine is a good choice -holding antiplatelets -PT/OT/Speech evaluation may benefit from AR -DVT ppx with SCD -will continue to follow Problems: CLIFFORD FELICIANO MD Jun 11, 2016 15:01
--- NOTE | 2016-06-11 15:54 | RADRPT ---
PROCEDURE: CT Brain without contrast. CLINICAL INDICATION: assess for progression of intracranial bleed TECHNIQUE: A CT of the brain was performed utilizing axial imaging from the skull base through the vertex without IV contrast. Multiplanar reformatted images were made. Images were reviewed on a [employer] workstation. The CTDIvol is 45 mGy and the DLP is 720 mGycm. COMPARISON: Head CT June 10, 2016 FINDINGS: There is a stable acute right thalamic hematoma measuring approximately 3 cm in maximum transverse d iameter. There is no surrounding edema. There is evidence of rupture into the third ventricle with blood identified within the dependent portion of the lateral ventricles, the third ventricle and th e fourth ventricle. The volume of blood has not changed significantly in the interim. There is mas s effect on the third ventricle with mild right to left midline shift unchanged. No discrete extra- axial fluid collection or masses seen. No other intra-axial masses or regions of abnormal attenuati on are present. There is underlying moderate diffuse cerebral volume loss with sulcal and ventricul ar dilatation. The size of the ventricles has not changed appreciably in the interim. IMPRESSION: Stable acute right thalamic hematoma with rupture into the ventricles and mild mass effect as above. Underlying atrophy. No significant change. Question hypertensive bleed. .Adolfo Euceda MD, MD Date Time Electronically viewed and signed by .Adolfo Euceda MD, on 06/11/2016 15:54 .A/
[2016-06-12] VITALS (12 sets, daily range): BP systolic 127–142; BP diastolic 85–93; PULSE 71–98; RESP 12–19
[2016-06-12] MEDS: ACETAMINOPHEN 325 MG TAB PO PRN ×3 (02:39→23:58)
[2016-06-12] MEDS: DEXTROSE 5%-0.45% NACL 1,000 ML IV SCH ×2 (06:34→13:41)
[2016-06-12] MEDS: LOSARTAN 50 MG TAB PO SCH ×2 (08:53→20:41)
[2016-06-12] MEDS: LEVETIRACETAM 500 MG TAB PO SCH ×2 (08:53→20:41)
[2016-06-12] MEDS: FAMOTIDINE 20 MG INJ IV SCH ×2 (08:53→20:41)
[2016-06-12] MEDS: DOCUSATE SODIUM 100 MG CAP PO SCH ×2 (08:53→20:41)
[2016-06-12] MEDS: NIFEdipine (XL) 30 MG TAB PO SCH ×2 (08:53→20:41)
[2016-06-12 09:35] LABS: BASOPHILS % 0.5 % (0.0-2.0); EOSINOPHILS # 0.1 10^3/ul (0.0-0.5); EOSINOPHILS % 1.3 % (0.0-7.0); HEMATOCRIT 43.2 % (42.0-52.0); HEMOGLOBIN 14.8 g/dl (14.0-18.0); LYMPHOCYTES # 0.9 10^3/ul (0.8-2.9); LYMPHOCYTES % 15.5 % (15.0-51.0); MEAN CORPUSCULAR HGB CONC 34.2 g/dl (32.0-37.0); MEAN CORPUSCULAR VOLUME 96.7 fl (82.0-101.0); MEAN PLATELET VOLUME 7.3 fl (7.4-10.4); MONOCYTE # 0.4 10^3/ul (0.3-0.9); MONOCYTES % 7.4 % (0.0-11.0); NEUTROPHIL # 4.5 10^3/ul (1.6-7.5); NEUTROPHILS % 75.3 % (39.0-77.0); PLATELET COUNT 189 10^3/UL (140-440); RED BLOOD COUNT 4.47 10^6/ul (4.70-6.10); RED CELL DISTRIBUTION WIDTH 13.2 % (11.5-14.5)
[2016-06-12 09:39] LABS: CONDITION 1
[2016-06-12 09:40] LABS: POTASSIUM 3.3 mmol/L (3.5-5.1)
[2016-06-12 09:42] LABS: CREATININE 0.78 mg/dl (0.61-1.24)
--- NOTE | 2016-06-12 09:48 | CONS ---
Date/Time of Note Date/Time of Note DATE: 06/12/16 TIME: 09:42 Assessment/Plan Assessment/Plan Chief Complaint/Hosp Course s/p thalamic ICH with IVH Neurologically stable. No indication for ventriculostomy currently based upon clinical exam but cont. observation. Still has mild headache and reports feeling a bit sleepy for believe a follow-up CT tomorrow should be performed. It was seem that there should be some continues increase in ventricular size if the patient has evolving significant hydrocephalus but that time. Problems: Consultation Date/Type/Reason Admit Date/Time Jun 10, 2016 at 23:23 Initial Consult Date 06/10/16 Type of Consultation: Neurosurgery Referring Provider: OLAYINKA HANNA MD 24 HR Interval Summary Free Text/Dictation Patient reports stable headache, 3/10 in severity. Denies nausea, vomiting, numbness, tingling or weakness. Admits to being a bit sleepier than usual. Exam/Review of Systems Vital Signs Vitals Vital Signs Date Time Temp Pulse Resp B/P Pulse Ox O2 Delivery O2 Flow Rate FiO2 06/12/16 08:14 71 06/12/16 07:16 98.5 17 137/90 98 06/11/16 11:00 Nasal Cannula 3.0 Intake and Output 06/11/16 06/11/16 06/12/16 15:00 23:00 07:00 Intake Total 720 ml 550 ml Output Total 500 ml 300 ml Balance -500 ml 420 ml 550 ml Exam Constitutional: alert, oriented, well developed Psych: nl mood/affect, no complaints Head: normocephalic Neurological: SKEWER UP II-XII intact ( execplt slight medial deviation of left eye) , nl mental status, nl speech, nl strength, other (slight left pronator drift. ) Results CT yesterday stable. Stable ICH and IVH, stable ventricular size. Result Diagram: 06/12/16 0908 06/11/16 0500 Results 24 hrs Laboratory Tests Test 06/12/16 09:08 Basophils # 0.0 Basophils % 0.5 Blood Morphology Comment Eosinophils # 0.1 Eosinophils % 1.3 Hematocrit 43.2 Hemoglobin 14.8 Lymphocytes # 0.9 Lymphocytes % 15.5 Mean Corpuscular Hemoglobin 33.0 Mean Corpuscular Hemoglobin Concent 34.2 Mean Corpuscular Volume 96.7 Mean Platelet Volume 7.3 L Monocytes # 0.4 Monocytes % 7.4 Neutrophils # 4.5 Neutrophils % 75.3 Nucleated Red Blood Cells # 0.0 Nucleated Red Blood Cells % 0.0 Platelet Count 189 Red Blood Count 4.47 L Red Cell Distribution Width 13.2 White Blood Count 6.0 Medications Medications Current Medications Losartan Potassium (Cozaar) 50 mg BID PO Last administered on 06/12/16 08:53; Admin Dose 50 MG; Start 06/10/16 at 21:00 Hydralazine HCl 10 mg 10 mg Q6H PRN IV ELEVATED BLOOD PRESSURE; Start 06/10/16 at 11:30 Dextrose/Sodium Chloride (D5-1/2ns) 1,000 ml @ 60 mls/hr [id number] IV Last administered on 06/12/16 06:34; Admin Dose 60 MLS/HR; Start 06/10/16 at 12:00 Ondansetron HCl (Zofran Inj) 4 mg Q6H PRN IV NAUSEA AND/OR VOMITING; Start 06/10 at 11:30 Nitroglycerin (Nitroglycerin (Sl Tab) 0.4 Mg) 1 tab Q5M PRN SL CHEST PAIN; Start 06/10/16 at 11:30 Acetaminophen (Tylenol Liquid) 650 mg Q6H PRN PO PAIN LEVEL 1-3 OR FEVER; Start 06/10/16 at 11:30 Acetaminophen (Tylenol Tab) 650 mg Q6H PRN PO PAIN LEVEL 1-3 OR FEVER Last administered on 06/12/16 02:39; Admin Dose 650 MG; Start 06/10/16 at 11:30 Docusate Sodium (Colace) 100 mg Q12H PRN PO CONSTIPATION; Start 06/10/16 at 11: 30 Famotidine (Pepcid Iv) 20 mg Q12 IV Last administered on 06/12/16 08:53; Admin Dose 20 MG; Start 06/10/16 at 21:00 Levetiracetam (Keppra) 500 mg BID PO Last administered on 06/12/16 08:53; Admin Dose 500 MG; Start 06/10/16 at 21:00 Acetaminophen (Tylenol Tab) 650 mg Q4H PRN PO TEMP GREATER THAN 99.6F; Start at 11:30 Docusate Sodium (Colace) 100 mg BID PO Last administered on 06/12/16 08:53; Admin Dose 100 MG; Start 06/10/16 at 21:00 Nifedipine (Procardia Xl) 30 mg BID PO Last administered on 06/12/16 08:53; Admin Dose 30 MG; Start 06/11/16 at 09:00 ANATOLIY CAMPOS MD Jun 12, 2016 09:48
--- NOTE | 2016-06-12 11:29 | CONS ---
Date/Time of Note Date/Time of Note DATE: 06/12/16 TIME: 11:26 Consult Date/Type/Reason Admit Date/Time Jun 10, 2016 at 23:23 Initial Consult Date 06/10/16 Type of Consultation: Neurology Reason for Consultation ICH Ordering Provider: OLAYINKA HANNA MD Subjective complains of headache, feeling sleepier this morning difficulty with vision Objective Vital Signs Date Time Temp Pulse Resp B/P Pulse Ox O2 Delivery O2 Flow Rate FiO2 06/12/16 08:14 71 06/12/16 07:16 98.5 17 137/90 98 06/11/16 11:00 Nasal Cannula 3.0 Intake and Output 06/11/16 06/11/16 06/12/16 15:00 23:00 07:00 Intake Total 720 ml 550 ml Output Total 500 ml 300 ml Balance -500 ml 420 ml 550 ml appears stated age patient is alert and awake oriented to himself, hospital and current date attentive, is able to count backwards 20 --> 1 CN: JOSELITO, VFF, right beating nystagmus upgaze nystagmus and skew deviation noted mild left NLF flattening palate upgoing uvula midline scm/trap intact, tongue midline Motor: right hand finger curl 4-/5 strength on right arm compared to left more distally weak left arm 5/5 bilateral LE 5/5 no drift in extremities Sensory: extinguishes to DSS on left arm and leg sensory neglect present to left Coordination no ataxia Reflexes 2+ throughout both toes withdraw to tactile stimulation Results/Medications Result Diagram: 06/12/16 0908 06/12/16 0908 Results 24 hrs Laboratory Tests Test 06/12/16 09:08 Anion Gap 13 Basophils # 0.0 Basophils % 0.5 Blood Morphology Comment Blood Urea Nitrogen 9 Calcium Level 9.0 Carbon Dioxide Level 24 Chloride Level 105 Creatinine 0.78 Eosinophils # 0.1 Eosinophils % 1.3 Glucose Level 177 Hematocrit 43.2 Hemoglobin 14.8 Lymphocytes # 0.9 Lymphocytes % 15.5 Mean Corpuscular Hemoglobin 33.0 Mean Corpuscular Hemoglobin Concent 34.2 Mean Corpuscular Volume 96.7 Mean Platelet Volume 7.3 L Monocytes # 0.4 Monocytes % 7.4 Neutrophils # 4.5 Neutrophils % 75.3 Nucleated Red Blood Cells # 0.0 Nucleated Red Blood Cells % 0.0 Platelet Count 189 Potassium Level 3.3 L Red Blood Count 4.47 L Red Cell Distribution Width 13.2 Sodium Level 139 White Blood Count 6.0 Medications Current Medications Losartan Potassium (Cozaar) 50 mg BID PO Last administered on 06/12/16 08:53; Admin Dose 50 MG; Start 06/10/16 at 21:00 Hydralazine HCl 10 mg 10 mg Q6H PRN IV ELEVATED BLOOD PRESSURE; Start 06/10/16 at 11:30 Dextrose/Sodium Chloride (D5-1/2ns) 1,000 ml @ 60 mls/hr [id number] IV Last administered on 06/12/16 06:34; Admin Dose 60 MLS/HR; Start 06/10/16 at 12:00 Ondansetron HCl (Zofran Inj) 4 mg Q6H PRN IV NAUSEA AND/OR VOMITING; Start 06/10 at 11:30 Nitroglycerin (Nitroglycerin (Sl Tab) 0.4 Mg) 1 tab Q5M PRN SL CHEST PAIN; Start 06/10/16 at 11:30 Acetaminophen (Tylenol Liquid) 650 mg Q6H PRN PO PAIN LEVEL 1-3 OR FEVER; Start 06/10/16 at 11:30 Acetaminophen (Tylenol Tab) 650 mg Q6H PRN PO PAIN LEVEL 1-3 OR FEVER Last administered on 06/12/16 02:39; Admin Dose 650 MG; Start 06/10/16 at 11:30 Docusate Sodium (Colace) 100 mg Q12H PRN PO CONSTIPATION; Start 06/10/16 at 11: 30 Famotidine (Pepcid Iv) 20 mg Q12 IV Last administered on 06/12/16 08:53; Admin Dose 20 MG; Start 06/10/16 at 21:00 Levetiracetam (Keppra) 500 mg BID PO Last administered on 06/12/16 08:53; Admin Dose 500 MG; Start 06/10/16 at 21:00 Acetaminophen (Tylenol Tab) 650 mg Q4H PRN PO TEMP GREATER THAN 99.6F; Start at 11:30 Docusate Sodium (Colace) 100 mg BID PO Last administered on 06/12/16 08:53; Admin Dose 100 MG; Start 06/10/16 at 21:00 Nifedipine (Procardia Xl) 30 mg BID PO Last administered on 06/12/16t 08:53; Admin Dose 30 MG; Start 06/11/16 at 09:00 Assessment/Plan Chief Complaint/Hosp Course 65 year old M with hx of hypertension, essential tremor presents with severe headache in the setting of acute right thalamic hemorrhage and elevated blood pressure. Repeat Head CT: shows persistent right thalamic ICH, 3.2 x 2.7 cm, appears similar in size with midline shift up to 4 mm intraventricular hemorrhage in lateral ventricle, third, and fourth ventricle slightly increased blood in ventricles mild hydrocephalus, mild increase Plan: -repeat Head CT for any decline in exam, planned for repeat tomorrow am for surveillance ordered for 7 am -appreciate neurosurgery consultation -continue frequent neurochecks q2h to evaluate for signs of herniation- decreased arousal, change in pupillary size, development of right sided weakness these changes in exam should prompt an immediate head ct -maintain BP<140/90 tapered off cardene and transitioned to oral meds, if additional agent is needed Nifedipine is a good choice -holding antiplatelets -PT/OT/Speech evaluation may benefit from AR -DVT ppx with SCD -will continue to follow Problems: CLIFFORD FELICIANO MD Jun 12, 2016 11:29
[2016-06-12] MEDS ORDERED: POTASSIUM CHLORIDE (SR) 20 MEQ TAB PO STA (12:03)
--- NOTE | 2016-06-12 12:08 | PN ---
Date/Time of Note Date/Time of Note DATE: 06/12/16 TIME: 12:04 Assessment/Plan VTE Prophylaxis VTE Prophylaxis Intervention: SCD's Lines/Catheters IV C[facility]ter Type [facility]from [facility] Peripheral IV Assessment/Plan Chief Complaint/Hosp Course ASSESSMENT AND PLAN: 1. Intracranial hemorrhage. Neurology and Neurosurgery has been consulted. Status post Cardene drip. We will continue the patient's blood pressure medication schedule amlodipine , losartan and hydralazine p.r.n. for systolic blood pressure greater than 165. No surgical intervention as per neurosurgery recommendations. PT, OT evaluate and treat. Follow-up CT of the brain, if no change in the size of bleed patient may be transferred to telemetry floor Patient has been seen by speech therapy and has been clear to start oral intake 2. Essential hypertension, better controlled at this time. Status post Cardene drip. Continue amlodipine and losartan, also, patient has been placed on hydralazine p.r.n. 3. Hypokalemia, repleted 4. Dyslipidemia, on statin 5. For deep venous thrombosis prophylaxis, on SCD. Refrain from using any pharmacologic DVT prophylaxis secondary to intracranial hemorrhage. We will continue to monitor patient closely. Further recommendations, management and treatment as per clinical course. Problems: Subjective 24 Hr Interval Summary Free Text/Dictation Patient denies of any chest pain or shortness of breath complains of having mild dizziness Tolerating oral intake Ambulating with minimal assist Exam/Review of Systems Vital Signs Vitals Vital Signs Date Time Temp Pulse Resp B/P Pulse Ox O2 Delivery O2 Flow Rate FiO2 06/12/16 11:25 98.0 73 18 131/87 96 06/11/16 11:00 Nasal Cannula 3.0 Intake and Output 06/11/16 06/11/16 06/12/16 15:00 23:00 07:00 Intake Total 720 ml 550 ml Output Total 500 ml 300 ml Balance -500 ml 420 ml 550 ml Exam General: The patient is well-developed, Not in acute distress. HEENT: Atraumatic, normocephalic. The pupils are equal and round . Neck: Supple with full range of motion. Chest: Normal expansion of the thorax during inspiration Lungs: Clear to auscultation bilaterally Heart: Normal S1-S2, Regular rhythm and rate. Abdomen: Soft , nontender, nondistended , bowel sounds are present. Extremities: Normal to inspection, no edema no cyanosis Neurologic: Normal mental status,The patient is awake, alert and oriented . Results Result Diagram: 06/12/16 0908 06/12/16 0908 Results 24 hrs Laboratory Tests Test 06/12/16 09:08 Anion Gap 13 Basophils # 0.0 Basophils % 0.5 Blood Morphology Comment Blood Urea Nitrogen 9 Calcium Level 9.0 Carbon Dioxide Level 24 Chloride Level 105 Creatinine 0.78 Eosinophils # 0.1 Eosinophils % 1.3 Glucose Level 177 Hematocrit 43.2 Hemoglobin 14.8 Lymphocytes # 0.9 Lymphocytes % 15.5 Mean Corpuscular Hemoglobin 33.0 Mean Corpuscular Hemoglobin Concent 34.2 Mean Corpuscular Volume 96.7 Mean Platelet Volume 7.3 L Monocytes # 0.4 Monocytes % 7.4 Neutrophils # 4.5 Neutrophils % 75.3 Nucleated Red Blood Cells # 0.0 Nucleated Red Blood Cells % 0.0 Platelet Count 189 Potassium Level 3.3 L Red Blood Count 4.47 L Red Cell Distribution Width 13.2 Sodium Level 139 White Blood Count 6.0 Medications Medications Current Medications Losartan Potassium (Cozaar) 50 mg BID PO Last administered on 06/12/16 08:53; Admin Dose 50 MG; Start 06/10/16 at 21:00 Hydralazine HCl 10 mg 10 mg Q6H PRN IV ELEVATED BLOOD PRESSURE; Start 06/10/16 at 11:30 Dextrose/Sodium Chloride (D5-1/2ns) 1,000 ml @ 60 mls/hr [id number] IV Last administered on 06/12/16 06:34; Admin Dose 60 MLS/HR; Start 06/10/16 at 12:00 Ondansetron HCl (Zofran Inj) 4 mg Q6H PRN IV NAUSEA AND/OR VOMITING; Start 06/10 at 11:30 Nitroglycerin (Nitroglycerin (Sl Tab) 0.4 Mg) 1 tab Q5M PRN SL CHEST PAIN; Start 06/10/16 at 11:30 Acetaminophen (Tylenol Liquid) 650 mg Q6H PRN PO PAIN LEVEL 1-3 OR FEVER; Start 06/10/16 at 11:30 Acetaminophen (Tylenol Tab) 650 mg Q6H PRN PO PAIN LEVEL 1-3 OR FEVER Last administered on 06/12/16 02:39; Admin Dose 650 MG; Start 06/10/16 at 11:30 Docusate Sodium (Colace) 100 mg Q12H PRN PO CONSTIPATION; Start 06/10/16 at 11: 30 Famotidine (Pepcid Iv) 20 mg Q12 IV Last administered on 06/12/16 08:53; Admin Dose 20 MG; Start 06/10/16 at 21:00 Levetiracetam (Keppra) 500 mg BID PO Last administered on 06/12/16 08:53; Admin Dose 500 MG; Start 06/10/16 at 21:00 Acetaminophen (Tylenol Tab) 650 mg Q4H PRN PO TEMP GREATER THAN 99.6F; Start at 11:30 Docusate Sodium (Colace) 100 mg BID PO Last administered on 06/12/16 08:53; Admin Dose 100 MG; Start 06/10/16 at 21:00 Nifedipine (Procardia Xl) 30 mg BID PO Last administered on 06/12/16 08:53; Admin Dose 30 MG; Start 06/11/16 at 09:00 OLAYINKA HANNA MD Jun 12, 2016 12:07
[2016-06-12] MEDS ORDERED: DEXAMETHASONE 10 MG/ML 1 ML INJ IV ONE (15:00)
[2016-06-12] MEDS ORDERED: METOCLOPRAMIDE 10 MG INJ IV ONE (15:00)
--- NOTE | 2016-06-12 16:16 | RADRPT ---
PROCEDURE: CT Brain without contrast. CLINICAL INDICATION: Neurologic deficit TECHNIQUE: A CT of the brain was performed on multidetector high-resolution CT scanner utilizing a xial sections from the skull base through the vertex without contrast. DOSE: CTDI = 44 mGy and the DLP = 720 mGy-cm. COMPARISON: Head CT 06/11/2016 FINDINGS: Stable appearance of the right thalamic hemorrhage with intraventricular extension into the third ve ntricle and bilateral lateral ventricles. No evidence of new bleeding or progressive mass effect. T here is stable 3 mm of leftward midline shift at the level of the third ventricle. The ventricles ar e stable in size. Atherosclerotic calcifications of the cavernous segments of the internal carotid a rteries are seen. Partially opacified paranasal sinuses. IMPRESSION: No significant interval change identified. Stable appearance of the right thalamic hemorrhage with intraventricular extension. Stable ventricle size and 3 mm leftward midline shift at the level of the third ventricle. RPTAT: AA .Chan Shah MD, Date Time Electronically viewed and signed by .Chan Shah MD, on 06/12/2016 16:16 .T/
[2016-06-13] VITALS (13 sets, daily range): BP systolic 119–137; BP diastolic 79–94; PULSE 72–84; RESP 16–20; Ht 188 cm; Wt 101.0 kg
[2016-06-13] MEDS: ARTIFICIAL TEARS 15 ML OPH BOTH EYES SCH ×4 (00:57→21:32)
[2016-06-13] MEDS: ZOLPIDEM 5 MG TAB PO PRN (00:57)
[2016-06-13] MEDS: ACETAMINOPHEN 325 MG TAB PO PRN (06:11)
[2016-06-13] MEDS: DEXTROSE 5%-0.45% NACL 1,000 ML IV SCH (06:15)
--- NOTE | 2016-06-13 07:44 | CONS ---
Date/Time of Note Date/Time of Note DATE: 06/13/16 TIME: 07:39 Assessment/Plan Assessment/Plan Chief Complaint/Hosp Course s/p thalamic ICH with IVH Neurologically stable. Patient wide awake without somnulence, improving symptoms. Given improvement, OK for d/c from neurosurgical standpoint. Patient advised to be aware of neurological symptoms for delayed worsening. Patient states that his daughter is coming in from [place] and will have family members around. Will f/u with PMD and states he usually goes to [facility]. Advised to go to PMD or ER for repeat CT should he develop no or worsening symptoms. Baseline f/u Ct recommended in 2 weeks. Problems: Consultation Date/Type/Reason Admit Date/Time Jun 10, 2016 at 23:23 Initial Consult Date 06/10/16 Type of Consultation: Neurosurgery Referring Provider: OLAYINKA HANNA MD 24 HR Interval Summary Free Text/Dictation Patient states that his headache is better, 1-2/10. Denies nausea, vomiting, numbness or weakness. Denies speech or visual changes. Exam/Review of Systems Vital Signs Vitals Vital Signs Date Time Temp Pulse Resp B/P Pulse Ox O2 Delivery O2 Flow Rate FiO2 06/13/16 07:34 97.8 78 20 131/87 98 06/13/16 04:55 Room Air 06/11/16 11:00 3.0 Intake and Output 06/12/16 06/12/16 06/13/16 15:00 23:00 07:00 Intake Total 950 ml 1080 ml Output Total 700 ml 500 ml Balance 250 ml 580 ml Exam Constitutional: alert, oriented, well developed Psych: nl mood/affect, no complaints Neurological: STAKE SETTER II-XII intact, nl mental status, nl speech, nl strength, other (no pronator drift) Results Result Diagram: 06/12/16 0908 06/12/16 0908 Results 24 hrs Laboratory Tests Test 06/12/16 09:08 Anion Gap 13 Basophils # 0.0 Basophils % 0.5 Blood Morphology Comment Blood Urea Nitrogen 9 Calcium Level 9.0 Carbon Dioxide Level 24 Chloride Level 105 Creatinine 0.78 Eosinophils # 0.1 Eosinophils % 1.3 Glucose Level 177 Hematocrit 43.2 Hemoglobin 14.8 Lymphocytes # 0.9 Lymphocytes % 15.5 Mean Corpuscular Hemoglobin 33.0 Mean Corpuscular Hemoglobin Concent 34.2 Mean Corpuscular Volume 96.7 Mean Platelet Volume 7.3 L Monocytes # 0.4 Monocytes % 7.4 Neutrophils # 4.5 Neutrophils % 75.3 Nucleated Red Blood Cells # 0.0 Nucleated Red Blood Cells % 0.0 Platelet Count 189 Potassium Level 3.3 L Red Blood Count 4.47 L Red Cell Distribution Width 13.2 Sodium Level 139 White Blood Count 6.0 Medications Medications Current Medications Losartan Potassium (Cozaar) 50 mg BID PO Last administered on 06/12/16 20:41; Admin Dose 50 MG; Start 06/10/16 at 21:00 Hydralazine HCl 10 mg 10 mg Q6H PRN IV ELEVATED BLOOD PRESSURE; Start 06/10/16 at 11:30 Dextrose/Sodium Chloride (D5-1/2ns) 1,000 ml @ 60 mls/hr [id number] IV Last administered on 06/13/16 06:15; Admin Dose 60 MLS/HR; Start 06/10/16 at 12:00 Ondansetron HCl (Zofran Inj) 4 mg Q6H PRN IV NAUSEA AND/OR VOMITING; Start 06/10 at 11:30 Nitroglycerin (Nitroglycerin (Sl Tab) 0.4 Mg) 1 tab Q5M PRN SL CHEST PAIN; Start 06/10/16 at 11:30 Acetaminophen (Tylenol Liquid) 650 mg Q6H PRN PO PAIN LEVEL 1-3 OR FEVER; Start 06/10/16 at 11:30 Acetaminophen (Tylenol Tab) 650 mg Q6H PRN PO PAIN LEVEL 1-3 OR FEVER Last administered on 06/13/16 06:11; Admin Dose 650 MG; Start 06/10/16 at 11:30 Docusate Sodium (Colace) 100 mg Q12H PRN PO CONSTIPATION; Start 06/10/16 at 11: 30 Famotidine (Pepcid Iv) 20 mg Q12 IV Last administered on 06/12/16 20:41; Admin Dose 20 MG; Start 06/10/16 at 21:00 Levetiracetam (Keppra) 500 mg BID PO Last administered on 06/12/16 20:41; Admin Dose 500 MG; Start 06/10/16 at 21:00 Acetaminophen (Tylenol Tab) 650 mg Q4H PRN PO TEMP GREATER THAN 99.6F; Start at 11:30 Docusate Sodium (Colace) 100 mg BID PO Last administered on 06/12/16 20:41; Admin Dose 100 MG; Start 06/10/16 at 21:00 Nifedipine (Procardia Xl) 30 mg BID PO Last administered on 06/12/16 20:41; Admin Dose 30 MG; Start 06/11/16 at 09:00 Eye Lubricant (Artificial Tears Oph) 2 drop TID BOTH EYES Last administered on 06/13/16 00:57; Admin Dose 2 DROP; Start 06/13/16 at 00:30 Zolpidem Tartrate (Ambien) 5 mg HS PRN PO INSOMNIA Last administered on 00:57; Admin Dose 5 MG; Start 06/13/16 at 00:30 ANATOLIY CAMPOS MD Jun 13, 2016 07:43
[2016-06-13] MEDS: DOCUSATE SODIUM 100 MG CAP PO SCH ×2 (08:22→21:35)
[2016-06-13] MEDS: LEVETIRACETAM 500 MG TAB PO SCH ×2 (08:22→21:35)
[2016-06-13] MEDS: FAMOTIDINE 20 MG INJ IV SCH ×2 (08:23→21:40)
[2016-06-13] MEDS: NIFEdipine (XL) 30 MG TAB PO SCH ×2 (08:23→21:35)
[2016-06-13] MEDS: LOSARTAN 50 MG TAB PO SCH ×2 (08:23→21:35)
--- NOTE | 2016-06-13 11:13 | RADRPT ---
PROCEDURE: CT Brain without contrast. CLINICAL INDICATION: reevaluation of thalamic ICH TECHNIQUE: A CT of the brain was performed utilizing axial imaging from the skull base through the vertex without IV contrast. Multiplanar reformatted images were made. Images were reviewed on a [employer] workstation. The CTDIvol is 45 mGy and the DLP is 720 mGycm. COMPARISON: Head CT June 12, 2016 and June 10, 2016 FINDINGS: There is a stable acute to subacute right thalamic hematoma which measures approximately 3 cm in max imum transverse diameter. There is mild surrounding edema. There is evidence of rupture into the v entricles with a stable small volume of blood seen layering in the dependent portion of both lateral ventricles as well as in the third ventricle. There is persistent stable 5 mm right to left midlin e shift unchanged when compared with yesterday's exam. In addition, there is stable asymmetric mode rate dilatation of the ventricles, right greater than left. The ventricles have not changed appreci ably in volume when compared With the admission film dated June 10. No discrete extra-axial flui d collection or masses present. There is no evidence of transtentorial or subfalcine herniation. There is normal aeration in the visualized paranasal sinuses. IMPRESSION: Stable acute to subacute right thalamic hematoma with rupture into the ventricles and mild midline s hift as above. No significant change when compared with prior study dated June 12. .Adolfo Euceda MD, MD Date Time Electronically viewed and signed by .Adolfo Euceda MD, on 06/13/2016 11:12 .A/
--- NOTE | 2016-06-13 13:26 | PDOCDIS ---
Discharge Instructions CONDITION Patient Condition: Good HOME CARE INSTRUCTIONS: Special Diet: low Na,low fat, 2 gms Na diet ACTIVITY: Activity Restrictions: Special Program FOLLOW UP/APPOINTMENTS Appointments Follow up with neurology and neurosurgery as outpatient OLAYINKA HANNA MD Jun 13, 2016 13:26
[2016-06-13] MEDS ORDERED: POTASSIUM CHLORIDE (SR) 20 MEQ TAB PO STA (13:27)
[2016-06-13] MEDS ORDERED: LEVE500T8 PO (13:29)
[2016-06-13] MEDS ORDERED: NIFE30TA2 PO (13:29)
[2016-06-13] MEDS ORDERED: LOSA50TA2 PO (13:29)
[2016-06-13] MEDS ORDERED: DOCU-144 PO (13:29)
[2016-06-13] MEDS ORDERED: ACET325T33 PO (13:29)
[2016-06-13 14:15] LABS: BASOPHILS % 0.1 % (0.0-2.0); EOSINOPHILS % 0.2 % (0.0-7.0); HEMATOCRIT 42.4 % (42.0-52.0); HEMOGLOBIN 14.4 g/dl (14.0-18.0); LYMPHOCYTES % 9.2 % (15.0-51.0); MEAN CORPUSCULAR HEMOGLOBIN 32.7 pg (29.0-33.0); MEAN CORPUSCULAR HGB CONC 33.9 g/dl (32.0-37.0); MEAN CORPUSCULAR VOLUME 96.4 fl (82.0-101.0); MEAN PLATELET VOLUME 7.5 fl (7.4-10.4); MONOCYTES % 9.1 % (0.0-11.0); NEUTROPHILS % 81.4 % (39.0-77.0); PLATELET COUNT 204 10^3/UL (140-440); RED CELL DISTRIBUTION WIDTH 13.1 % (11.5-14.5)
[2016-06-13 14:22] LABS: CONDITION 1
[2016-06-13 14:25] LABS: POTASSIUM 3.7 mmol/L (3.5-5.1)
[2016-06-13 14:28] LABS: CREATININE 0.82 mg/dl (0.61-1.24)
[2016-06-13 14:29] LABS: CALCIUM 9.4 mg/dl (8.4-10.2)
--- NOTE | 2016-06-13 15:32 | CONS ---
Date/Time of Note Date/Time of Note DATE: 06/13/16 TIME: 15:30 Consult Date/Type/Reason Admit Date/Time Jun 10, 2016 at 23:23 Initial Consult Date 06/10/16 Type of Consultation: neurology Reason for Consultation thalamic ICH Ordering Provider: OLAYINKA HANNA MD Subjective complained of headaches overnight given reglan 10 mg and mg x1 with improvement, denies headache today Objective Vital Signs Date Time Temp Pulse Resp B/P Pulse Ox O2 Delivery O2 Flow Rate FiO2 06/13/16 12:29 98.2 75 20 124/84 98 06/13/16 04:55 Room Air 06/11/16 11:00 3.0 Intake and Output 06/12/16 06/12/16 06/13/16 15:00 23:00 07:00 Intake Total 950 ml 1080 ml Output Total 700 ml 500 ml Balance 250 ml 580 ml appears stated age patient is alert and awake oriented to himself, hospital and current date attentive, is able to count backwards 20 --> 1 CN: JOSELITO, VFF, right beating nystagmus upgaze nystagmus and skew deviation noted mild left NLF flattening palate upgoing uvula midline scm/trap intact, tongue midline Motor: right hand finger curl 4-/5 strength on right arm compared to left more distally weak left arm 5/5 bilateral LE 5/5 no drift in extremities Sensory: extinguishes to DSS on left arm and leg sensory neglect present to left Coordination no ataxia Reflexes 2+ throughout both toes withdraw to tactile stimulation Results/Medications Result Diagram: 06/13/16 1355 06/13/16 1355 Results 24 hrs Laboratory Tests Test 06/13/16 13:55 Anion Gap 17 H Basophils # 0.0 Basophils % 0.1 Blood Urea Nitrogen 14 Calcium Level 9.4 Carbon Dioxide Level 25 Chloride Level 104 Creatinine 0.82 Eosinophils # 0.0 Eosinophils % 0.2 Glucose Level 96 # Hematocrit 42.4 Hemoglobin 14.4 Lymphocytes # 1.0 Lymphocytes % 9.2 L Mean Corpuscular Hemoglobin 32.7 Mean Corpuscular Hemoglobin Concent 33.9 Mean Corpuscular Volume 96.4 Mean Platelet Volume 7.5 Monocytes # 1.0 H Monocytes % 9.1 Neutrophils # 9.0 H Neutrophils % 81.4 H Nucleated Red Blood Cells # 0.0 Nucleated Red Blood Cells % 0.0 Platelet Count 204 Potassium Level 3.7 Red Blood Count 4.40 L Red Cell Distribution Width 13.1 Sodium Level 142 White Blood Count 11.0 #H Medications Current Medications Losartan Potassium (Cozaar) 50 mg BID PO Last administered on 06/13/16 08:23; Admin Dose 50 MG; Start 06/10/16 at 21:00 Hydralazine HCl 10 mg 10 mg Q6H PRN IV ELEVATED BLOOD PRESSURE; Start 06/10/16 at 11:30 Dextrose/Sodium Chloride (D5-1/2ns) 1,000 ml @ 60 mls/hr [id number] IV Last administered on 06/13/16 06:15; Admin Dose 60 MLS/HR; Start 06/10/16 at 12:00 Ondansetron HCl (Zofran Inj) 4 mg Q6H PRN IV NAUSEA AND/OR VOMITING; Start 06/10 at 11:30 Nitroglycerin (Nitroglycerin (Sl Tab) 0.4 Mg) 1 tab Q5M PRN SL CHEST PAIN; Start 06/10/16 at 11:30 Acetaminophen (Tylenol Liquid) 650 mg Q6H PRN PO PAIN LEVEL 1-3 OR FEVER; Start 06/10/16 at 11:30 Acetaminophen (Tylenol Tab) 650 mg Q6H PRN PO PAIN LEVEL 1-3 OR FEVER Last administered on 06/13/16 06:11; Admin Dose 650 MG; Start 06/10/16 at 11:30 Docusate Sodium (Colace) 100 mg Q12H PRN PO CONSTIPATION; Start 06/10/16 at 11: 30 Famotidine (Pepcid Iv) 20 mg Q12 IV Last administered on 06/13/16 08:23; Admin Dose 20 MG; Start 06/10/16 at 21:00 Levetiracetam (Keppra) 500 mg BID PO Last administered on 06/13/16 08:22; Admin Dose 500 MG; Start 06/10/16 at 21:00 Acetaminophen (Tylenol Tab) 650 mg Q4H PRN PO TEMP GREATER THAN 99.6F; Start at 11:30 Docusate Sodium (Colace) 100 mg BID PO Last administered on 06/13/16 08:22; Admin Dose 100 MG; Start 06/10/16 at 21:00 Nifedipine (Procardia Xl) 30 mg BID PO Last administered on 06/13/16 08:23; Admin Dose 30 MG; Start 06/11/16 at 09:00 Eye Lubricant (Artificial Tears Oph) 2 drop TID BOTH EYES Last administered on 06/13/16 14:00; Admin Dose 2 DROP; Start 06/13/16 at 00:30 Zolpidem Tartrate (Ambien) 5 mg HS PRN PO INSOMNIA Last administered on 00:57; Admin Dose 5 MG; Start 06/13/16 at 00:30 Influenza Virus Vaccine (Fluzone) 0.5 ml ONCE ONCE IM* ; Start 06/14/16 at 09:00 ; Stop 06/14/16 at 09:01 Assessment/Plan Chief Complaint/Hosp Course 65 year old M with hx of hypertension, essential tremor presents with severe headache in the setting of acute right thalamic hemorrhage and elevated blood pressure. Repeat Head CT: shows persistent right thalamic ICH, 3.2 x 2.7 cm, appears similar in size with midline shift up to 4 mm intraventricular hemorrhage in lateral ventricle, third, and fourth ventricle slightly increased blood in ventricles mild hydrocephalus, mild increase Repeat imaging reviewed 06/12 06/13 stable no need for further imaging at this time. 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
[2016-06-14] VITALS (11 sets, daily range): BP systolic 121–138; BP diastolic 83–94; PULSE 63–76; RESP 20
[2016-06-14] MEDS: DEXTROSE 5%-0.45% NACL 1,000 ML IV SCH ×2 (00:20→16:00)
--- NOTE | 2016-06-14 02:15 | DS ---
DATE OF ADMISSION: 06/10/2016 DATE OF DISCHARGE: 06/13/2016 CONSULTANTS: 1. Neurology. 2. Neurosurgery. PROCEDURE: A 2D echocardiogram, which demonstrated normal left ventricular systolic function. Norm al left ventricular cavity size. Normal left ventricular wall thickness. Ejection fraction visuall y estimated at 65%. Stage I diastolic dysfunction. No significant valvular stenosis or regurgitati on seen. DIAGNOSES: 1. Intracranial hemorrhage. Neurology and neurosurgery were consulted. Continue to monitor blood pressure. No surgical intervention as per neurosurgery recommendation. Repeat CT of the brain did not show any change in the size of the hemorrhage. Continue physical therapy. 2. Essential hypertension, better controlled, status post Cardene drip. At this time, patient is o n nicardipine and Losartan. 3. Hypokalemia, repleted. MEDICATIONS: 1. Tylenol. 2. Artificial tears. 3. Colace. 4. Keppra. 5. Losartan 50 mg. 6. Nifedipine XL 30 mg. 7. Pepcid 20 mg p.r.n. 8. Hydralazine 25 mg 1 tab p.o. q.6h. p.r.n. ALLERGIES: NO KNOWN DRUG ALLERGIES. LABORATORY DATA: Sodium 139, potassium 3.3, chloride 105, bicarbonate 24, BUN 9, creatinine 0.78, g lucose 177. Hemoglobin A1c 5.1. Triglyceride 87, total cholesterol 85, LDL 70, HDL 98. WBC 6.0, h emoglobin 14.8, hematocrit 43.2, platelets 189. HOSPITAL COURSE: This is a pleasant 65-year-old gentleman with past medical history of hypertension who was at his normal state of health in the morning of 06/10/2016 and went to work in the morning. Around 6:00 a.m. while he was at work, his friends called 911 since the patient started to have li ghtheadedness, dizziness with headache, diaphoresis, and cold sweats. The patient was brought into the emergency room at [facility] via EMS. The CT of the head was obtained, which showed acute right thalamic hemorrhage. The patient was found to have elevated blood pressure of 17 0s, was placed on Cardene drip. The CT of the head and neck was obtained, which showed no underlyin g lesion, diffuse intracranial atherosclerosis. No significant occlusion of the major vascular. Th e patient was admitted to ICU. Neurology and neurosurgery were consulted in course of emergency zeke m. After evaluation of the CT of the brain and other imaging, no surgical intervention was recommen ded as per neurosurgery. The patient was continued on nicardipine drip in the course of ICU. He wa s seen and evaluated by physical therapy, occupational therapy, and speech therapy. He was cleared by speech therapy, for p.o. intake. He was then started on oral blood pressure medication, Losartan and nicardipine. His lipid panel was well controlled; therefore, at this time, the patient was not started on any statin. The patient was then transferred to the telemetry floor, which he has been seen and evaluated by physical therapy. He has been min assist with ambulation. The patient's phys ical examination and symptoms have improved significantly. At this time, I strongly believe the pat ient would benefit to be transferred to half-way facility versus acute rehab. He has been cl eared by neurosurgery for discharge and is to follow up with neurosurgery in 2 weeks as outpatient a nd repeat a CT of the brain, if there is any change in his mental status or his motor or sensory. VITAL SIGNS: Temperature 98.2, pulse 75, respiration 20, blood pressure 124/84, oxygen 98% on room air. CONDITION AT TIME OF DISCHARGE: Stable. DISPOSITION: half-way facility versus acute rehabilitation. Total amount of time was spent for evaluation of patient and discharge workup 45 minutes. Dictated By: OLAYINKA JOSEPH/NTS Conf#: [id number] DID#: [id number]
[2016-06-14] MEDS: ACETAMINOPHEN 325 MG TAB PO PRN ×2 (04:56→20:51)
[2016-06-14] MEDS: FAMOTIDINE 20 MG TAB PO SCH ×2 (08:48→20:44)
[2016-06-14] MEDS: LEVETIRACETAM 500 MG TAB PO SCH ×2 (08:48→20:44)
[2016-06-14] MEDS: ARTIFICIAL TEARS 15 ML OPH BOTH EYES SCH ×3 (08:48→21:36)
[2016-06-14] MEDS: DOCUSATE SODIUM 100 MG CAP PO SCH ×2 (08:48→20:44)
[2016-06-14] MEDS: LOSARTAN 50 MG TAB PO SCH ×2 (08:49→20:51)
[2016-06-14] MEDS: NIFEdipine (XL) 30 MG TAB PO SCH ×2 (08:49→20:51)
[2016-06-14] MEDS ORDERED: INFLUENZA VIRUS VACCINE 0.5 ML (DISPENSING) IM* ONE (09:00)
--- NOTE | 2016-06-14 12:22 | PN ---
Date/Time of Note Date/Time of Note DATE: 06/14/16 TIME: 12:15 Assessment/Plan VTE Prophylaxis VTE Prophylaxis Intervention: SCD's Lines/Catheters IV [facility]ter [facility]from [facility] Saline Lock Urinary Cath still in place: No Assessment/Plan Chief Complaint/Hosp Course ASSESSMENT AND PLAN: 1. Intracranial hemorrhage. Neurology and Neurosurgery has been consulted. Status post Cardene drip. We will continue the patient's blood pressure medication schedule amlodipine , losartan and hydralazine p.r.n. for systolic blood pressure greater than 165. No surgical intervention as per neurosurgery recommendations. PT, OT evaluate and treat. Follow-up CT of the brain, if no change in the size of bleed patient may be transferred to telemetry floor Patient has been seen by speech therapy and has been clear to start oral intake 2. Essential hypertension, better controlled at this time. Status post Cardene drip. Continue amlodipine and losartan, also, patient has been placed on hydralazine p.r.n. 3. Hypokalemia, repleted 4. Dyslipidemia, on statin 5. For deep venous thrombosis prophylaxis, on SCD. Refrain from using any pharmacologic DVT prophylaxis secondary to intracranial hemorrhage. Patient is awaiting for senior living facility placement We will transfer the patient to senior living facility when bed is available Problems: Subjective 24 Hr Interval Summary Free Text/Dictation No acute changes Ambulating with moderate assist and pulmonary physical therapist Denies of any chest pain or shortness of breath Tolerating oral intake Exam/Review of Systems Vital Signs Vitals Vital Signs Date Time Temp Pulse Resp B/P Pulse Ox O2 Delivery O2 Flow Rate FiO2 06/14/16 12:07 98.2 63 20 121/83 97 06/13/16 04:55 Room Air 06/11/16 11:00 3.0 Intake and Output 06/13/16 06/13/16 06/14/16 15:00 23:00 07:00 Intake Total 1540 ml 480 ml Output Total 800 ml 1100 ml Balance 740 ml -620 ml Exam General: The patient is well-developed, Not in acute distress. HEENT: Atraumatic, normocephalic. The pupils are equal and round . Neck: Supple with full range of motion. Chest: Normal expansion of the thorax during inspiration Lungs: Clear to auscultation bilaterally Heart: Normal S1-S2, Regular rhythm and rate. Abdomen: Soft , nontender, nondistended , bowel sounds are present. Extremities: Normal to inspection, no edema no cyanosis Neurologic: Normal mental status,The patient is awake, alert and oriented . Results Result Diagram: 06/13/16 1355 06/13/16 1355 Results 24 hrs Laboratory Tests Test 06/13/16 13:55 Anion Gap 17 H Basophils # 0.0 Basophils % 0.1 Blood Urea Nitrogen 14 Calcium Level 9.4 Carbon Dioxide Level 25 Chloride Level 104 Creatinine 0.82 Eosinophils # 0.0 Eosinophils % 0.2 Glucose Level 96 # Hematocrit 42.4 Hemoglobin 14.4 Lymphocytes # 1.0 Lymphocytes % 9.2 L Mean Corpuscular Hemoglobin 32.7 Mean Corpuscular Hemoglobin Concent 33.9 Mean Corpuscular Volume 96.4 Mean Platelet Volume 7.5 Monocytes # 1.0 H Monocytes % 9.1 Neutrophils # 9.0 H Neutrophils % 81.4 H Nucleated Red Blood Cells # 0.0 Nucleated Red Blood Cells % 0.0 Platelet Count 204 Potassium Level 3.7 Red Blood Count 4.40 L Red Cell Distribution Width 13.1 Sodium Level 142 White Blood Count 11.0 #H Medications Medications Current Medications Losartan Potassium (Cozaar) 50 mg BID PO Last administered on 06/14/16 08:49; Admin Dose 50 MG; Start 06/10/16 at 21:00 Hydralazine HCl 10 mg 10 mg Q6H PRN IV ELEVATED BLOOD PRESSURE; Start 06/10/16 at 11:30 Dextrose/Sodium Chloride (D5-1/2ns) 1,000 ml @ 60 mls/hr [id number] IV Last administered on 06/14/16 00:20; Admin Dose 60 MLS/HR; Start 06/10/16 at 12:00 Ondansetron HCl (Zofran Inj) 4 mg Q6H PRN IV NAUSEA AND/OR VOMITING; Start 06/10 at 11:30 Nitroglycerin (Nitroglycerin (Sl Tab) 0.4 Mg) 1 tab Q5M PRN SL CHEST PAIN; Start 06/10/16 at 11:30 Acetaminophen (Tylenol Liquid) 650 mg Q6H PRN PO PAIN LEVEL 1-3 OR FEVER; Start 06/10/16 at 11:30 Acetaminophen (Tylenol Tab) 650 mg Q6H PRN PO PAIN LEVEL 1-3 OR FEVER Last administered on 06/14/16 04:56; Admin Dose 650 MG; Start 06/10/16 at 11:30 Docusate Sodium (Colace) 100 mg Q12H PRN PO CONSTIPATION; Start 06/10/16 at 11: 30 Levetiracetam (Keppra) 500 mg BID PO Last administered on 06/14/16 08:48; Admin Dose 500 MG; Start 06/10/16 at 21:00 Acetaminophen (Tylenol Tab) 650 mg Q4H PRN PO TEMP GREATER THAN 99.6F; Start at 11:30 Docusate Sodium (Colace) 100 mg BID PO Last administered on 06/14/16 08:48; Admin Dose 100 MG; Start 06/10/16 at 21:00 Nifedipine (Procardia Xl) 30 mg BID PO Last administered on 06/14/16 08:49; Admin Dose 30 MG; Start 06/11/16 at 09:00 Eye Lubricant (Artificial Tears Oph) 2 drop TID BOTH EYES Last administered on 06/14/16 08:48; Admin Dose 2 DROP; Start 06/13/16 at 00:30 Zolpidem Tartrate (Ambien) 5 mg HS PRN PO INSOMNIA Last administered on 00:57; Admin Dose 5 MG; Start 06/13/16 at 00:30 Famotidine (Pepcid) 20 mg BID PO Last administered on 06/14/16 08:48; Admin Dose 20 MG; Start 06/14/16 at 09:00 OLAYINKA HANNA MD Jun 14, 2016 12:21
--- NOTE | 2016-06-14 17:05 | CONS ---
Date/Time of Note Date/Time of Note DATE: 06/14/16 TIME: 17:03 Assessment/Plan Assessment/Plan Chief Complaint/Hosp Course s/p thalamic ICH with IVH Neurologically stable. headache continues to improve. Given improvement, OK for d/c from neurosurgical standpoint. Patient advised to be aware of neurological symptoms for delayed worsening. Patient repeated that his daughter is coming in from [place] and will have family members around. Will f/u with PMD and states he usually goes [facility]. Advised to go to PMD or ER for repeat CT should he develop no or worsening symptoms. Baseline f/u Ct recommended in 2 weeks. Problems: Consultation Date/Type/Reason Admit Date/Time Jun 10, 2016 at 23:23 Initial Consult Date 06/10/16 Type of Consultation: Neurosurgery Referring Provider: OLAYINKA HANNA MD 24 HR Interval Summary Free Text/Dictation Doing well. Only report 1-2/10 headache. He denies nausea, vomiting, dizziness, speech or sensory changes. Exam/Review of Systems Vital Signs Vitals Vital Signs Date Time Temp Pulse Resp B/P Pulse Ox O2 Delivery O2 Flow Rate FiO2 06/14/16 16:15 70 06/14/16 15:09 98.5 20 136/88 96 06/13/16 04:55 Room Air 06/11/16 11:00 3.0 Intake and Output 06/13/16 06/13/16 06/14/16 15:00 23:00 07:00 Intake Total 1540 ml 480 ml Output Total 800 ml 1100 ml Balance 740 ml -620 ml Exam Constitutional: alert, oriented, well developed Psych: nl mood/affect, no complaints Head: normocephalic Neurological: [employer] II-XII intact, nl mental status, nl speech, nl strength, other (no pronator drift) Results Result Diagram: 06/13/16 1355 06/13/16 1355 Medications Medications Current Medications Losartan Potassium (Cozaar) 50 mg BID PO Last administered on 06/14/16t 08:49; Admin Dose 50 MG; Start 06/10/16 at 21:00 Hydralazine HCl 10 mg 10 mg Q6H PRN IV ELEVATED BLOOD PRESSURE; Start 06/10/16 at 11:30 Dextrose/Sodium Chloride (D5-1/2ns) 1,000 ml @ 60 mls/hr [id number] IV Last administered on 06/14/16 00:20; Admin Dose 60 MLS/HR; Start 06/10/16 at 12:00 Ondansetron HCl (Zofran Inj) 4 mg Q6H PRN IV NAUSEA AND/OR VOMITING; Start 06/10 at 11:30 Nitroglycerin (Nitroglycerin (Sl Tab) 0.4 Mg) 1 tab Q5M PRN SL CHEST PAIN; Start 06/10/16 at 11:30 Acetaminophen (Tylenol Liquid) 650 mg Q6H PRN PO PAIN LEVEL 1-3 OR FEVER; Start 06/10/16 at 11:30 Acetaminophen (Tylenol Tab) 650 mg Q6H PRN PO PAIN LEVEL 1-3 OR FEVER Last administered on 06/14/16 04:56; Admin Dose 650 MG; Start 06/10/16 at 11:30 Docusate Sodium (Colace) 100 mg Q12H PRN PO CONSTIPATION; Start 06/10/16 at 11: 30 Levetiracetam (Keppra) 500 mg BID PO Last administered on 06/14/16 08:48; Admin Dose 500 MG; Start 06/10/16 at 21:00 Acetaminophen (Tylenol Tab) 650 mg Q4H PRN PO TEMP GREATER THAN 99.6F; Start at 11:30 Docusate Sodium (Colace) 100 mg BID PO Last administered on 06/14/16 08:48; Admin Dose 100 MG; Start 06/10/16 at 21:00 Nifedipine (Procardia Xl) 30 mg BID PO Last administered on 06/14/16 08:49; Admin Dose 30 MG; Start 06/11/16 at 09:00 Eye Lubricant (Artificial Tears Oph) 2 drop TID BOTH EYES Last administered on 06/14/16 13:50; Admin Dose 2 DROP; Start 06/13/16 at 00:30 Zolpidem Tartrate (Ambien) 5 mg HS PRN PO INSOMNIA Last administered on 00:57; Admin Dose 5 MG; Start 06/13/16 at 00:30 Famotidine (Pepcid) 20 mg BID PO Last administered on 06/14/16 08:48; Admin Dose 20 MG; Start 06/14/16 at 09:00 ANATOLIY CAMPOS MD Jun 14, 2016 17:05
[2016-06-14] MEDS: ZOLPIDEM 5 MG TAB PO PRN (21:36)
[2016-06-15 07:44] VITALS: BP 126/81; RESP 18
[2016-06-15] MEDS: DOCUSATE SODIUM 100 MG CAP PO SCH (08:07)
[2016-06-15] MEDS: LEVETIRACETAM 500 MG TAB PO SCH (08:07)
[2016-06-15] MEDS: FAMOTIDINE 20 MG TAB PO SCH (08:08)
[2016-06-15] MEDS: ARTIFICIAL TEARS 15 ML OPH BOTH EYES SCH ×2 (08:08→12:06)
[2016-06-15] MEDS: NIFEdipine (XL) 30 MG TAB PO SCH (08:08)
[2016-06-15] MEDS: LOSARTAN 50 MG TAB PO SCH (08:08)
[2016-06-15] MEDS ORDERED: CIPROFLOXACIN 0.3% 2.5 ML OPH BOTH EYES SCH (09:00)
--- NOTE | 2016-06-15 15:08 | DS ---
Date/Time of Note Date/Time of Note DATE: 06/15/16 TIME: 15:06 Discharge Summary Admission/Discharge Info Admit Date/Time Jun 10, 2016 at 23:23 Discharge Date/Time Jun 15, 2016 at 12:15 Final Diagnosis DIAGNOSES: 1. Intracranial hemorrhage. Neurology and neurosurgery were consulted. Continue to monitor blood pressure. No surgical intervention as per neurosurgery recommendation. Repeat CT of the brain did not show any change in the size of the hemorrhage. Continue physical therapy. 2. Essential hypertension, better controlled, status post Cardene drip. At this time, patient is on nicardipine and Losartan. 3. Hypokalemia, repleted. Patient Condition: Good Hospital Course HOSPITAL COURSE: This is a pleasant 65-year-old gentleman with past medical history of hypertension who was at his normal state of health in the morning of 06/10/2016 and went to work in the morning. Around 6:00 a.m. while he was at work, his friends called 911 since the patient started to have lightheadedness, dizziness with headache, diaphoresis, and cold sweats. The patient was brought into the emergency room at [facility] via EMS. The CT of the head was obtained, which showed acute right thalamic hemorrhage. The patient was found to have elevated blood pressure of 170s, was placed on Cardene drip. The CT of the head and neck was obtained, which showed no underlying lesion, diffuse intracranial atherosclerosis. No significant occlusion of the major vascular. The patient was admitted to ICU. Neurology and neurosurgery were consulted in course of emergency room. After evaluation of the CT of the brain and other imaging, no surgical intervention was recommended as per neurosurgery. The patient was continued on nicardipine drip in the course of ICU. He was seen and evaluated by physical therapy, occupational therapy, and speech therapy. He was cleared by speech therapy, for p.o. intake. He was then started on oral blood pressure medication, Losartan and nicardipine. His lipid panel was well controlled; therefore, at this time, the patient was not started on any statin. The patient was then transferred to the telemetry floor , which he has been seen and evaluated by physical therapy. He has been min assist with ambulation. The patient's physical examination and symptoms have improved significantly. At this time, I strongly believe the patient would benefit to be transferred to senior living facility versus acute rehab. He has been cleared by neurosurgery for discharge and is to follow up with neurosurgery in 2 weeks as outpatient and repeat a CT of the brain, if there is any change in his mental status or his motor or sensory. Patient has been accepted to acute rehab for further evaluation and physical therapy Condition at time of discharge stable Home Meds Active Scripts Nifedipine (Procardia Xl) 30 Mg Tab.er.24, 30 MG PO BID for 1 Day, TAB Prov:OLAYINKA HANNA MD 06/13/16 Losartan Potassium* (Cozaar*) 50 Mg Tablet, 50 MG PO BID for 1 Day, TAB Prov:OLAYINKA HANNA MD 06/13/16 Levetiracetam* (Levetiracetam*) 500 Mg Tablet, 500 MG PO BID for 1 Day, TAB Prov:OLAYINKA HANNA MD 06/13/16 Docusate Sodium* (Colace*) 100 Mg Capsule, 100 MG PO Q12H Y for CONSTIPATION for 1 Day, CAP Prov:OLAYINKA HANNA MD 06/13/16 Acetaminophen* (Tylenol*) 325 Mg Tablet, 650 MG PO Q4H Y for TEMP GREATER THAN 99.6F for 1 Day, TAB Prov:OLAYINKA HANNA MD 06/13/16 Discontinued Reported Medications Losartan Potassium* (Losartan Potassium*) 100 Mg Tablet, 100 MG PO DAILY, TAB 06/10/16 Amlodipine Besylate* (Amlodipine Besylate*) 10 Mg Tablet, 10 MG PO DAILY, #30 TAB 06/10/16 OLAYINKA HANNA MD Jun 15, 2016 15:07
== END 2016-06-15 14:15 | disposition short-term general hospital (02) | DRG 65 ==
LOC: E/R 07:42 → ICU 23:23 → TEL 06-11 19:05 → PP2 06-14 18:37
PROVIDERS: ADMIT Family Medicine; ATTEND Family Medicine
DX: I61.5 Nontraumatic intracerebral hemorrhage, intraventricular (principal); G91.9 Hydrocephalus, unspecified; I11.9 Hypertensive heart disease without heart failure; Z98.84 Bariatric surgery status; E87.6 Hypokalemia; E78.5 Hyperlipidemia, unspecified
CPT/HCPCS: 36415; 70450; 70496; 70498; 71010; 80048; 80061; 82962; 83036; 83735; 84484; 85025; 85610; 85730; 87081; 90686; 92610; 93005; 93306; 96365; 96366; 96375; 97110; 97116; 97162; 97167; 97530; J1100; J2270; J2405; J2765; J7042; Q9967

== ENCOUNTER 2016-06-15 14:38 | Inpatient (IN) | payer OTHER ==
[~2016-06-15] VITALS: Ht 188 cm; Wt 101.0 kg
[2016-06-15 14:30] VITALS: BP 118/73; PULSE 83; RESP 18
[~2016-06-15 14:38] MED LIST: ACET325T33 PO; DOCU-144 PO; LEVE500T8 PO; LOSA50TA2 PO; NIFE30TA2 PO
[2016-06-15 14:43] VITALS: Ht 188 cm; Wt 101.0 kg
[2016-06-15] MEDS ORDERED: BISACODYL 10 MG SUPP PR PRN (15:00)
[2016-06-15] MEDS ORDERED: MAGNESIUM HYDROXIDE 30ML CUP PO PRN (15:00)
[2016-06-15] MEDS: ACETAMINOPHEN 325 MG TAB PO PRN (15:33)
[2016-06-15 17:49] LABS: ADD UMIC NO; URINE BILIRUBIN (Dip) NEGATIVE (NEGATIVE); URINE BLOOD (Dip) NEGATIVE (NEGATIVE); URINE COLOR YELLOW (YELLOW); URINE GLUCOSE (Dip) NEGATIVE (NEGATIVE); URINE KETONES (Dip) NEGATIVE (NEGATIVE); URINE LEUKOCYTE ESTERASE (Dip) NEGATIVE (NEGATIVE); URINE NITRITE (Dip) NEGATIVE (NEGATIVE); URINE TOTAL PROTEIN (Dip) NEGATIVE (NEGATIVE); URINE UROBILINOGEN (Dip) 2.0 E.U./dL (0.1-1.0)
[2016-06-15] MEDS: ARTIFICIAL TEARS 15 ML OPH BOTH EYES SCH (20:47)
[2016-06-15] MEDS: NIFEdipine (XL) 30 MG TAB PO SCH (20:47)
[2016-06-15] MEDS: LEVETIRACETAM 500 MG TAB PO SCH (20:47)
[2016-06-15] MEDS: SENNA TAB PO SCH (20:47)
[2016-06-15] MEDS: FAMOTIDINE 20 MG TAB PO SCH (20:47)
[2016-06-15] MEDS: LOSARTAN 50 MG TAB PO SCH (20:48)
[2016-06-15 21:26] VITALS: BP_DIAS 84
[2016-06-15] MEDS ORDERED: DIPHENHYDRAMINE 50 MG CAP PO PRN (21:30)
[2016-06-15 22:16] VITALS: BP 130/84; RESP 18
[2016-06-16] MEDS: LACTULOSE 30ML CUP PO PRN (05:27)
[2016-06-16] MEDS: ACETAMINOPHEN 325 MG TAB PO PRN ×2 (05:36→18:22)
[2016-06-16 07:10] VITALS: BP 119/76; RESP 18
[2016-06-16 07:37] LABS: BASOPHILS % 0.4 % (0.0-2.0); EOSINOPHILS # 0.1 10^3/ul (0.0-0.5); EOSINOPHILS % 1.7 % (0.0-7.0); HEMATOCRIT 44.5 % (42.0-52.0); HEMOGLOBIN 15.3 g/dl (14.0-18.0); LYMPHOCYTES # 0.8 10^3/ul (0.8-2.9); LYMPHOCYTES % 12.8 % (15.0-51.0); MEAN CORPUSCULAR HEMOGLOBIN 33.1 pg (29.0-33.0); MEAN CORPUSCULAR HGB CONC 34.3 g/dl (32.0-37.0); MEAN CORPUSCULAR VOLUME 96.7 fl (82.0-101.0); MEAN PLATELET VOLUME 7.7 fl (7.4-10.4); MONOCYTE # 0.7 10^3/ul (0.3-0.9); MONOCYTES % 11.8 % (0.0-11.0); NEUTROPHIL # 4.7 10^3/ul (1.6-7.5); NEUTROPHILS % 73.3 % (39.0-77.0); PLATELET COUNT 221 10^3/UL (140-440); RED BLOOD COUNT 4.61 10^6/ul (4.70-6.10); RED CELL DISTRIBUTION WIDTH 12.9 % (11.5-14.5); UNCORRECTED WBC 6.4 10^3/ul (4.8-10.8); WHITE BLOOD COUNT 6.4 10^3/ul (4.8-10.8)
[2016-06-16 07:47] LABS: CONDITION 1
--- NOTE | 2016-06-16 08:28 | CONS ---
DATE OF ADMISSION: 06/15/2016 DATE OF CONSULTATION: 06/16/2016 REASON FOR CONSULTATION: Medical management during course of rehabilitation. HISTORY OF PRESENT ILLNESS: This is a pleasant 65-year-old gentleman with past medical history of h ypertension who was in normal state of health on the morning of 06/10/2016 and went to work in the [employer]. Around 6 a.m. the patient was found to have speech impairment, lightheadedness, dizziness, headache, diaphoresis, cold sweats, right upper and lower extremity weakness, and was noticed by his friend; therefore, they called 911. EMS brought the patient to [facility] Emergency Room, CT of the head was obtained which showed acute right thalamic hemorrhage. The patient was also fou nd to have elevated blood pressure of 170, placed on Cardene drip. CT of the head and neck was obta ined which showed no underlying lesion, diffuse intracranial atherosclerosis, and second occlusion o f major vascular. Neurosurgery and Neurology were consulted. The patient was admitted to ICU. As per evaluation of the CT of the brain and other imaging, no surgical intervention was recommended, a s per Neurosurgery. Patient was continued on Cardene drip in the course of the emergency room, in I CU Cardene drip was weaned off and patient was placed on Losartan and nifedipine which his blood pre ssure started to improve significantly. The patient was seen and evaluated by Speech Therapy, was c leared by Speech Therapy for p.o. intake. Subsequently patient was transferred to telemetry floor [facility] he was seen and evaluated by physical therapy, and has been able to ambulate with moderate assi st. His blood pressure was found to be normal, and the repeat CT of the brain was obtained which sh owed no changes from the primary CT. The patient was then evaluated by the acute rehab physician allie hook has been accepted for acute rehab at this time. The patient denies any headache, dizziness, light headedness. No change in visual acuity, diplopia, photophobia. No abdominal pain. Has been able t o tolerate oral intake with no sign of dysphagia. No fever, chills, weight gain, weight loss. No h eadache, no lightheadedness. No tingling or weakness in his upper and lower extremity. No speech i mpairment or problem with swallowing. PAST MEDICAL AND SURGICAL HISTORY: 1. Intracranial hemorrhage. 2. Essential hypertension. MEDICATIONS: 1. Procardia. 2. Losartan. 3. Keppra. 4. Colace. 5. Acetaminophen. ALLERGIES: NO KNOWN DRUG ALLERGIES. FAMILY HISTORY: Positive for hypertension. SOCIAL HISTORY: Denies history of smoking, alcohol, illicit drugs. REVIEW OF SYSTEMS: As above per HPI, otherwise 12 review of systems have been found to be negative. PHYSICAL EXAMINATION: VITAL SIGNS: Temperature 97.9, pulse 81, respirations 18, blood pressure 130/84, oxygen saturation 96% on room air. GENERAL APPEARANCE: The patient is lying in bed comfortably without any distress. He is awake, ti rt, oriented. He is able to answer my questions properly. Body habitus is within normal limit. EYES AND ENT: Conjunctivae and lids are normal. Pupils are normal. Extraocular normal. Hearing g rossly normal. Lips, teeth, and gums are normal. Oral mucosa moist. NECK: Supple. Trachea is midline. No lymphadenopathy. RESPIRATORY: Effort is normal. Clear to auscultate bilaterally. CARDIOVASCULAR: Normal S1, S2. Regular rhythm and rate. No murmur, no bruits, no edema. Peripher al pulses, radial pulses palpable. Cap refill is normal. CHEST: Normal expansion of thorax during inspiration. GASTROINTESTINAL: Abdomen is soft, nontender, not distended. Bowel sounds present. No guarding, n o rebound. GENITOURINARY: Deferred. MUSCULOSKELETAL: Upper and lower extremities within normal limits. Full range of motion. There is no asymmetry at this time. Motor and sensory are intact. NEUROLOGIC: Cranial nerves II through XII seem grossly intact. PSYCHIATRIC: Normal judgment and insight. Alert and oriented x3. Mood and affect are normal. LABORATORY WORK AND IMAGING: Pending except lipid panel, triglycerides 87, total cholesterol 185, L DL 70, HDL 98. ASSESSMENT AND PLAN: 1. Right thalamic and intraventricular hemorrhage, cerebrovascular accident with no changes i n the CT of the brain. Continue physical therapy. Continue to monitor blood pressure. 2. Essential hypertension, well controlled on Losartan and nifedipine. 3. Deep venous thrombosis prophylaxis, on sequential compression devices. Refrain from using any p harmacologic DVT prophylaxis secondary to intracranial hemorrhage. 4. Gastrointestinal prophylaxis, on Pepcid. We will continue to monitor patient closely. Further recommendations, management, and treatment as per clinical course. Total amount of time was spent for evaluation of patient and consultation note, 40 minutes. Dictated By: OLAYINKA JOSEPH/NTS Conf#: [id number] DID#: [id number]
[2016-06-16 08:29] LABS: ALBUMIN 3.9 g/dl (3.3-4.9); POTASSIUM 3.9 mmol/L (3.5-5.1)
[2016-06-16 08:31] LABS: BILIRUBIN,INDIRECT 0.5 mg/dl (0-1.1); BILIRUBIN,TOTAL 0.5 mg/dl (0.2-1.3); CREATININE 0.9 mg/dl (0.61-1.24)
[2016-06-16 08:32] LABS: ALBUMIN/GLOBULIN RATIO 1.25; CALCIUM 9.3 mg/dl (8.4-10.2)
[2016-06-16] MEDS: ARTIFICIAL TEARS 15 ML OPH BOTH EYES SCH ×3 (09:00→20:55)
[2016-06-16] MEDS: LEVETIRACETAM 500 MG TAB PO SCH ×2 (09:01→20:54)
[2016-06-16] MEDS: FAMOTIDINE 20 MG TAB PO SCH ×2 (09:01→20:54)
[2016-06-16] MEDS: NIFEdipine (XL) 30 MG TAB PO SCH ×2 (09:03→20:54)
[2016-06-16] MEDS: LOSARTAN 50 MG TAB PO SCH ×2 (09:04→20:54)
[2016-06-16] MEDS: GENTAMICIN 0.3% 5 ML OPH BOTH EYES SCH ×3 (12:26→20:55)
--- NOTE | 2016-06-16 12:38 | CONS ---
DATE OF ADMISSION: 06/15/2016 DATE OF CONSULTATION: 06/16/2016 REHABILITATION POST ADMISSION PHYSICIAN EVALUATION REHABILITATION IMPAIRMENT CATEGORY: Right thalamic hemorrhagic CVA. ACTIVE COMORBIDITIES: 1. Hypertension. 2. Headache. 3. Impairments in self-care and mobility. HISTORY OF PRESENT ILLNESS: The patient is a pleasant 65-year-old left-handed gentleman with a hist ory of hypertension who was admitted with severe headache, dizziness, and weakness. Workup was cons istent with a right thalamic hemorrhage. The patient was followed closely by neurology and neurosur sobia. No neurosurgical intervention was not indicated at this time. The patient had been cleared t o transfer to the rehabilitation unit for comprehensive interdisciplinary rehab care. FUNCTIONAL HISTORY: Prior to recent events, the patient was independent in self-care tasks and mobi lity. Currently, the patient requires minimal assist for self-care and minimal assist for mobility tasks. I have reviewed the preadmission screen and the patient's current functional status is consistent wi th the preadmission screen. SOCIAL HISTORY: The patient lives at home alone, but does have supportive family including sister a nd a daughter who will be flying in from [place]. PAST MEDICAL HISTORY: Hypertension. CURRENT MEDICATIONS: 1. Artificial tears. 2. Colace 100 mg b.i.d. p.r.n. 3. Pepcid 20 mg b.i.d. 4. Keppra 500 mg p.o. b.i.d. 5. Cozaar 50 mg p.o. b.i.d. 6. Procardia 30 mg p.o. b.i.d. ALLERGIES: THE PATIENT WITH NO KNOWN DRUG ALLERGIES. PHYSICAL EXAMINATION: VITAL SIGNS: The patient is currently afebrile with stable vital signs. HEENT: The extraocular motions are intact. Oropharynx clear. NECK: Supple. LUNGS: Clear anteriorly. CARDIAC: S1, S2. ABDOMEN: Soft, nontender, positive bowel sounds. NEUROLOGIC: He is awake and alert and oriented x3. He will follow simple 1-step commands. He demo nstrates antigravity strength in bilateral upper extremity and lower extremity. He does have impair ed dynamic balance. PLAN: The patient has been admitted for comprehensive interdisciplinary acute rehab and is anticipa andry to tolerate 3 hours of daily therapy in divided doses for at least 5/7 days a week. The treatme nt plan will include: 1. Physical therapy to focus on bed mobility, transfers, and household ambulation with the goal of having the patient reach standby assist level. 2. Occupational therapy to focus on hygiene, grooming, dressing, bathing, and toileting activities with the goal of having the patient reach standby assist level. 3. Rehabilitation nursing for carryover of therapeutic interventions, the goal of continent of nata l and bladder, and the goal of the patient and family education with regard to the aforementioned is sues. 4. Speech therapy for full cognitive assessment and dysphagia evaluation with the goal of having th e patient return to baseline cognition and meet nutritional needs by mouth. REHABILITATION BARRIER: Balance. INTERVENTION FOR BARRIER: Interdisciplinary approach. ESTIMATED LENGTH OF STAY: 14 days. DISPOSITION GOAL: Home. I acknowledge that I have performed a full physical examination on this patient within 24 hours of a dmission to the rehabilitation unit. I believe the patient is a good candidate for comprehensive in terdisciplinary rehab care. Dictated By: KRISTY GORE/CHELY Conf#: [id number] DID#: [id number]
[2016-06-16 20:00] VITALS: BP 130/81; RESP 18
[2016-06-16] MEDS: DOCUSATE SODIUM 100 MG CAP PO PRN (20:53)
[2016-06-16] MEDS: SENNA TAB PO SCH (20:53)
[2016-06-16] MEDS: ZOLPIDEM 5 MG TAB PO PRN (20:54)
[2016-06-17 07:50] VITALS: BP 125/79; RESP 18
[2016-06-17] MEDS: ARTIFICIAL TEARS 15 ML OPH BOTH EYES SCH ×3 (08:18→20:27)
[2016-06-17] MEDS: LOSARTAN 50 MG TAB PO SCH ×2 (08:18→20:26)
[2016-06-17] MEDS: GENTAMICIN 0.3% 5 ML OPH BOTH EYES SCH ×3 (08:18→20:27)
[2016-06-17] MEDS: NIFEdipine (XL) 30 MG TAB PO SCH ×2 (08:19→20:27)
[2016-06-17] MEDS: LEVETIRACETAM 500 MG TAB PO SCH ×2 (08:19→20:26)
[2016-06-17] MEDS: FAMOTIDINE 20 MG TAB PO SCH ×2 (08:19→20:26)
--- NOTE | 2016-06-17 11:08 | CONS ---
Date/Time of Note Date/Time of Note DATE: 06/17/16 TIME: 11:07 Consult Date/Type/Reason Admit Date/Time Jun 15, 2016 at 14:38 Initial Consult Date Subjective Had shower this AM, feeling better Objective Pulm- CTA min/mod amb Vital Signs Date Time Temp Pulse Resp B/P Pulse Ox O2 Delivery O2 Flow Rate FiO2 06/17/16 07:50 98.5 70 18 125/79 95 06/16/16 20:00 Room Air Intake and Output 06/16/16 06/16/16 06/17/16 15:00 23:00 07:00 Intake Total 480 ml 240 ml 320 ml Output Total 600 ml 400 ml 1200 ml Balance -120 ml -160 ml -880 ml Results/Medications Result Diagram: 06/16/1661206/16/1613 Medications Current Medications Losartan Potassium (Cozaar) 50 mg BID PO Last administered on 06/17/16 08:18; Admin Dose 50 MG; Start 06/15/16 at 14:59 Acetaminophen (Tylenol Tab) 650 mg Q6H PRN PO PAIN LEVEL 1-3 OR FEVER Last administered on 06/16/16 18:22; Admin Dose 650 MG; Start 06/15/16 at 14:59 Docusate Sodium (Colace) 100 mg Q12H PRN PO CONSTIPATION Last administered on 20:53; Admin Dose 100 MG; Start 06/15/16 at 14:59 Levetiracetam (Keppra) 500 mg BID PO Last administered on 06/17/16 08:19; Admin Dose 500 MG; Start 06/15/16 at 14:59 Nifedipine (Procardia Xl) 30 mg BID PO Last administered on 06/17/16 08:19; Admin Dose 30 MG; Start 06/15/16 at 14:59 Eye Lubricant (Artificial Tears Oph) 2 drop TID BOTH EYES Last administered on 06/17/16 08:18; Admin Dose 2 DROP; Start 06/15/16 at 14:59 Famotidine (Pepcid) 20 mg BID PO Last administered on 06/17/16 08:19; Admin Dose 20 MG; Start 06/15/16 at 14:59 Hydralazine HCl (Apresoline) 25 mg Q6H PRN PO SBP>165; Start 06/15/16 at 15:30 Senna (Senokot) 1 tab HS PO Last administered on 06/16/16 20:53; Admin Dose 1 TAB; Start 06/15/16 at 21:00 Bisacodyl (Dulcolax Supp) 10 mg DAILY PRN [place] CONSTIPATION; Start 06/15/16 at 15 :00 Lactulose (Enulose) 20 gm DAILY PRN PO CONSTIPATION Last administered on 05:27; Admin Dose 20 GM; Start 06/15/16 at 15:00 Magnesium Hydroxide (Milk Of Mag) 30 ml BID PRN PO CONSTIPATION; Start at 15:00 Diphenhydramine HCl (Benadryl) 50 mg HS PRN PO insomnia Last administered on 22:29; Admin Dose 50 MG; Start 06/15/16 at 21:30 Gentamicin Sulfate (Gentamicin 0.3% Oph Drop) 1 drop TID BOTH EYES Last administered on 06/17/16 08:18; Admin Dose 1 DROP; Start 06/16/16 at 11:30; Stop 06/21/16 at 11:29 Zolpidem Tartrate (Ambien) 5 mg HS PRN PO INSOMNIA Last administered on 20:54; Admin Dose 5 MG; Start 06/16/16 at 19:30 Assessment/Plan Additional Assessment/Plan Rehab- R thalamic hem CVA Tolerating rehab program well KRISTY ARROYO MD Jun 17, 2016 11:08
--- NOTE | 2016-06-17 17:00 | PN ---
Date/Time of Note Date/Time of Note DATE: 06/17/16 TIME: 16:59 Assessment/Plan VTE Prophylaxis VTE Prophylaxis Intervention: SCD's Lines/Catheters IV Catheter Type (from Nrs): Saline Lock Assessment/Plan Chief Complaint/Hosp Course ASSESSMENT AND PLAN: 1. 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 Continue physical therapy. Continue to monitor blood pressure. 2. Essential hypertension, well controlled on Losartan and nifedipine. 3. Deep venous thrombosis prophylaxis, on sequential compression devices. Refrain from using any pharmacologic DVT prophylaxis secondary to intracranial hemorrhage. 4. Gastrointestinal prophylaxis, on Pepcid. We will continue to monitor patient closely. Further recommendations, management, and treatment as per clinical course. Problems: Subjective 24 Hr Interval Summary Free Text/Dictation Denies of any chest pain or shortness of breath Ambulate with moderate assist without any discomfort Tolerating oral intake Exam/Review of Systems Vital Signs Vitals Vital Signs Date Time Temp Pulse Resp B/P Pulse Ox O2 Delivery O2 Flow Rate FiO2 06/17/16 07:50 98.5 70 18 125/79 95 06/16/16 20:00 Room Air Intake and Output 06/16/16 06/16/16 06/17/16 15:00 23:00 07:00 Intake Total 480 ml 240 ml 320 ml Output Total 600 ml 400 ml 1200 ml Balance -120 ml -160 ml -880 ml Exam General: The patient is well-developed, Not in acute distress. HEENT: Atraumatic, normocephalic. The pupils are equal and round . Neck: Supple with full range of motion. Chest: Normal expansion of the thorax during inspiration Lungs: Clear to auscultation bilaterally Heart: Normal S1-S2, Regular rhythm and rate. Abdomen: Soft , nontender, nondistended , bowel sounds are present. Extremities: Normal to inspection, no edema no cyanosis Neurologic: Normal mental status,The patient is awake, alert and oriented . Results Result Diagram: 06/16/1661206/16/16612 Medications Medications Current Medications Losartan Potassium (Cozaar) 50 mg BID PO Last administered on 06/17/16 08:18; Admin Dose 50 MG; Start 06/15/16 at 14:59 Acetaminophen (Tylenol Tab) 650 mg Q6H PRN PO PAIN LEVEL 1-3 OR FEVER Last administered on 06/16/16 18:22; Admin Dose 650 MG; Start 06/15/16 at 14:59 Docusate Sodium (Colace) 100 mg Q12H PRN PO CONSTIPATION Last administered on 20:53; Admin Dose 100 MG; Start 06/15/16 at 14:59 Levetiracetam (Keppra) 500 mg BID PO Last administered on 06/17/16 08:19; Admin Dose 500 MG; Start 06/15/16 at 14:59 Nifedipine (Procardia Xl) 30 mg BID PO Last administered on 06/17/16 08:19; Admin Dose 30 MG; Start 06/15/16 at 14:59 Eye Lubricant (Artificial Tears Oph) 2 drop TID BOTH EYES Last administered on 06/17/16 13:22; Admin Dose 2 DROP; Start 06/15/16 at 14:59 Famotidine (Pepcid) 20 mg BID PO Last administered on 06/17/16 08:19; Admin Dose 20 MG; Start 06/15/16 at 14:59 Hydralazine HCl (Apresoline) 25 mg Q6H PRN PO SBP>165; Start 06/15/16 at 15:30 Senna (Senokot) 1 tab HS PO Last administered on 06/16/16 20:53; Admin Dose 1 TAB; Start 06/15/16 at 21:00 Bisacodyl (Dulcolax Supp) 10 mg DAILY PRN [place] CONSTIPATION; Start 06/15/16 at 15 :00 Lactulose (Enulose) 20 gm DAILY PRN PO CONSTIPATION Last administered on 05:27; Admin Dose 20 GM; Start 06/15/16 at 15:00 Magnesium Hydroxide (Milk Of Mag) 30 ml BID PRN PO CONSTIPATION; Start at 15:00 Diphenhydramine HCl (Benadryl) 50 mg HS PRN PO insomnia Last administered on 22:29; Admin Dose 50 MG; Start 06/15/16 at 21:30 Gentamicin Sulfate (Gentamicin 0.3% Oph Drop) 1 drop TID BOTH EYES Last administered on 06/17/16 13:22; Admin Dose 1 DROP; Start 06/16/16 at 11:30; Stop 1/17/17 at 11:29 Zolpidem Tartrate (Ambien) 5 mg HS PRN PO INSOMNIA Last administered on t 20:54; Admin Dose 5 MG; Start 06/16/16 at 19:30 OLAYINKA HANNA MD Jun 17, 2016 17:00
[2016-06-17 20:00] VITALS: BP 123/70; PULSE 80; RESP 18
[2016-06-17 20:10] VITALS: BP 123/75; RESP 18
[2016-06-17] MEDS: SENNA TAB PO SCH (20:26)
[2016-06-17] MEDS: ZOLPIDEM 5 MG TAB PO PRN (20:27)
[2016-06-17] MEDS: LACTULOSE 30ML CUP PO PRN (20:28)
[2016-06-18 07:10] VITALS: BP 119/73; RESP 18
[2016-06-18] MEDS: FAMOTIDINE 20 MG TAB PO SCH ×2 (08:25→20:10)
[2016-06-18] MEDS: NIFEdipine (XL) 30 MG TAB PO SCH ×2 (08:25→20:08)
[2016-06-18] MEDS: GENTAMICIN 0.3% 5 ML OPH BOTH EYES SCH ×3 (08:25→20:07)
[2016-06-18] MEDS: ARTIFICIAL TEARS 15 ML OPH BOTH EYES SCH ×3 (08:25→20:07)
[2016-06-18] MEDS: LEVETIRACETAM 500 MG TAB PO SCH ×2 (08:25→20:08)
[2016-06-18] MEDS: LOSARTAN 50 MG TAB PO SCH ×2 (08:26→20:08)
--- NOTE | 2016-06-18 09:24 | CONS ---
Date/Time of Note Date/Time of Note DATE: 06/18/16 TIME: 09:23 Consult Date/Type/Reason Admit Date/Time Jun 15, 2016 at 14:38 Subjective Patient in good spirits Objective pulm- CTA card- S1S2 Min assist amb 75 feet Vital Signs Date Time Temp Pulse Resp B/P Pulse Ox O2 Delivery O2 Flow Rate FiO2 06/18/16 07:10 98.6 71 18 119/73 95 06/17/16 20:00 Room Air Intake and Output 06/17/16 06/17/16 06/18/16 15:00 23:00 07:00 Intake Total 720 ml 480 ml 1050 ml Output Total 450 ml 400 ml 600 ml Balance 270 ml 80 ml 450 ml Results/Medications Result Diagram: 06/16/1661206/16/16612 Medications Current Medications Losartan Potassium (Cozaar) 50 mg BID PO Last administered on 06/18/16 08:26; Admin Dose 50 MG; Start 06/15/16 at 14:59 Acetaminophen (Tylenol Tab) 650 mg Q6H PRN PO PAIN LEVEL 1-3 OR FEVER Last administered on 06/16/16 18:22; Admin Dose 650 MG; Start 06/15/16 at 14:59 Docusate Sodium (Colace) 100 mg Q12H PRN PO CONSTIPATION Last administered on 20:53; Admin Dose 100 MG; Start 06/15/16 at 14:59 Levetiracetam (Keppra) 500 mg BID PO Last administered on 06/18/16 08:25; Admin Dose 500 MG; Start 06/15/16 at 14:59 Nifedipine (Procardia Xl) 30 mg BID PO Last administered on 06/18/16 08:25; Admin Dose 30 MG; Start 06/15/16 at 14:59 Eye Lubricant (Artificial Tears Oph) 2 drop TID BOTH EYES Last administered on 06/18/16 08:25; Admin Dose 2 DROP; Start 06/15/16 at 14:59 Famotidine (Pepcid) 20 mg BID PO Last administered on 06/18/16 08:25; Admin Dose 20 MG; Start 06/15/16 at 14:59 Hydralazine HCl (Apresoline) 25 mg Q6H PRN PO SBP>165; Start 06/15/16 at 15:30 Senna (Senokot) 1 tab HS PO Last administered on 06/17/16 20:26; Admin Dose 1 TAB; Start 06/15/16 at 21:00 Bisacodyl (Dulcolax Supp) 10 mg DAILY PRN [place] CONSTIPATION; Start 06/15/16 at 15 :00 Lactulose (Enulose) 20 gm DAILY PRN PO CONSTIPATION Last administered on 20:28; Admin Dose 20 GM; Start 06/15/16 at 15:00 Magnesium Hydroxide (Milk Of Mag) 30 ml BID PRN PO CONSTIPATION; Start at 15:00 Diphenhydramine HCl (Benadryl) 50 mg HS PRN PO insomnia Last administered on 22:29; Admin Dose 50 MG; Start 06/15/16 at 21:30 Gentamicin Sulfate (Gentamicin 0.3% Oph Drop) 1 drop TID BOTH EYES Last administered on 06/18/16 08:25; Admin Dose 1 DROP; Start 06/16/16 at 11:30; Stop 06/21/16 at 11:29 Zolpidem Tartrate (Ambien) 5 mg HS PRN PO INSOMNIA Last administered on 20:27; Admin Dose 5 MG; Start 06/16/16 at 19:30 Assessment/Plan Additional Assessment/Plan Rehab- R thalamic hem CVA Good progress with rehab program KRISTY ARROYO MD Jun 18, 2016 09:23
--- NOTE | 2016-06-18 14:42 | PN ---
Date/Time of Note Date/Time of Note DATE: 06/18/16 TIME: 14:41 Assessment/Plan VTE Prophylaxis VTE Prophylaxis Intervention: SCD's Lines/Catheters IV [facility] Type (from [facility] Saline Lock Urinary Cath still in place: No Assessment/Plan Chief Complaint/Hosp Course ASSESSMENT AND PLAN: 1. 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 Continue physical therapy. Continue to monitor blood pressure. 2. Essential hypertension, well controlled on Losartan and nifedipine. 3. Deep venous thrombosis prophylaxis, on sequential compression devices. Refrain from using any pharmacologic DVT prophylaxis secondary to intracranial hemorrhage. 4. Gastrointestinal prophylaxis, on Pepcid. We will continue to monitor patient closely. Further recommendations, management, and treatment as per clinical course. Problems: Subjective 24 Hr Interval Summary Free Text/Dictation Denies of any chest pain or shortness of breath Minimal assist with ambulation Tolerating physical therapy Exam/Review of Systems Vital Signs Vitals Vital Signs Date Time Temp Pulse Resp B/P Pulse Ox O2 Delivery O2 Flow Rate FiO2 06/18/16 07:10 98.6 71 18 119/73 95 06/17/16 20:00 Room Air Intake and Output 06/17/16 06/17/16 06/18/16 15:00 23:00 07:00 Intake Total 720 ml 480 ml 1050 ml Output Total 450 ml 400 ml 600 ml Balance 270 ml 80 ml 450 ml Exam General: The patient is well-developed, Not in acute distress. HEENT: Atraumatic, normocephalic. The pupils are equal and round . Neck: Supple with full range of motion. Chest: Normal expansion of the thorax during inspiration Lungs: Clear to auscultation bilaterally Heart: Normal S1-S2, Regular rhythm and rate. Abdomen: Soft , nontender, nondistended , bowel sounds are present. Extremities: Normal to inspection, no edema no cyanosis, minimal gait instability Neurologic: Normal mental status,The patient is awake, alert and oriented . Results Result Diagram: 06/16/1661206/16/16612 Medications Medications Current Medications Losartan Potassium (Cozaar) 50 mg BID PO Last administered on 06/18/16t 08:26; Admin Dose 50 MG; Start 06/15/16 at 14:59 Acetaminophen (Tylenol Tab) 650 mg Q6H PRN PO PAIN LEVEL 1-3 OR FEVER Last administered on 06/16/16 18:22; Admin Dose 650 MG; Start 06/15/16 at 14:59 Docusate Sodium (Colace) 100 mg Q12H PRN PO CONSTIPATION Last administered on 20:53; Admin Dose 100 MG; Start 06/15/16 at 14:59 Levetiracetam (Keppra) 500 mg BID PO Last administered on 06/18/16 08:25; Admin Dose 500 MG; Start 06/15/16 at 14:59 Nifedipine (Procardia Xl) 30 mg BID PO Last administered on 06/18/16 08:25; Admin Dose 30 MG; Start 06/15/16 at 14:59 Eye Lubricant (Artificial Tears Oph) 2 drop TID BOTH EYES Last administered on 06/18/16 13:38; Admin Dose 2 DROP; Start 06/15/16 at 14:59 Famotidine (Pepcid) 20 mg BID PO Last administered on 06/18/16 08:25; Admin Dose 20 MG; Start 06/15/16 at 14:59 Hydralazine HCl (Apresoline) 25 mg Q6H PRN PO SBP>165; Start 06/15/16 at 15:30 Senna (Senokot) 1 tab HS PO Last administered on 06/17/16 20:26; Admin Dose 1 TAB; Start 06/15/16 at 21:00 Bisacodyl (Dulcolax Supp) 10 mg DAILY PRN [place] CONSTIPATION; Start 06/15/16 at 15 :00 Lactulose (Enulose) 20 gm DAILY PRN PO CONSTIPATION Last administered on 20:28; Admin Dose 20 GM; Start 06/15/16 at 15:00 Magnesium Hydroxide (Milk Of Mag) 30 ml BID PRN PO CONSTIPATION; Start at 15:00 Diphenhydramine HCl (Benadryl) 50 mg HS PRN PO insomnia Last administered on 22:29; Admin Dose 50 MG; Start 06/15/16 at 21:30 Gentamicin Sulfate (Gentamicin 0.3% Oph Drop) 1 drop TID BOTH EYES Last administered on 06/18/16 13:38; Admin Dose 1 DROP; Start 06/16/16 at 11:30; Stop 06/21/16 at 11:29 Zolpidem Tartrate (Ambien) 5 mg HS PRN PO INSOMNIA Last administered on t 20:27; Admin Dose 5 MG; Start 06/16/16 at 19:30 OLAYINKA HANNA MD Jun 18, 2016 14:42
[2016-06-18 19:20] VITALS: BP 131/81; RESP 18
[2016-06-18 19:59] VITALS: BP 131/81; PULSE 78; RESP 18
[2016-06-18] MEDS: SENNA TAB PO SCH (20:08)
[2016-06-18] MEDS: ZOLPIDEM 5 MG TAB PO PRN (20:10)
[2016-06-19 07:30] VITALS: BP 113/74; RESP 18
[2016-06-19] MEDS: GENTAMICIN 0.3% 5 ML OPH BOTH EYES SCH ×3 (08:16→20:46)
[2016-06-19] MEDS: ARTIFICIAL TEARS 15 ML OPH BOTH EYES SCH ×3 (08:16→20:46)
[2016-06-19] MEDS: FAMOTIDINE 20 MG TAB PO SCH ×2 (08:17→20:46)
[2016-06-19] MEDS: LOSARTAN 50 MG TAB PO SCH ×2 (08:17→20:48)
[2016-06-19] MEDS: LEVETIRACETAM 500 MG TAB PO SCH ×2 (08:17→20:45)
[2016-06-19] MEDS: NIFEdipine (XL) 30 MG TAB PO SCH ×2 (08:17→20:48)
--- NOTE | 2016-06-19 12:33 | PN ---
Date/Time of Note Date/Time of Note DATE: 06/19/16 TIME: 12:32 Assessment/Plan VTE Prophylaxis VTE Prophylaxis Intervention: SCD's Lines/Catheters IV [facility]ter Type (from [facility]): Saline Lock Urinary Cath still in place: No Assessment/Plan Chief Complaint/Hosp Course ASSESSMENT AND PLAN: 1. 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 Continue physical therapy. Continue to monitor blood pressure. 2. Essential hypertension, well controlled on Losartan and nifedipine. 3. Deep venous thrombosis prophylaxis, on sequential compression devices. Refrain from using any pharmacologic DVT prophylaxis secondary to intracranial hemorrhage. 4. Gastrointestinal prophylaxis, on Pepcid. We will continue to monitor patient closely. Further recommendations, management, and treatment as per clinical course. Problems: Subjective 24 Hr Interval Summary Free Text/Dictation Denies of any chest pain or shortness of breath Minimal assist during ambulation Denies of having dizziness or lightheadedness Exam/Review of Systems Vital Signs Vitals Vital Signs Date Time Temp Pulse Resp B/P Pulse Ox O2 Delivery O2 Flow Rate FiO2 06/19/16 07:30 98.5 68 18 113/74 96 06/18/16 19:59 Room Air Intake and Output 06/18/16 06/18/16 06/19/16 15:00 23:00 07:00 Intake Total 480 ml 720 ml Output Total 600 ml 700 ml 200 ml Balance -120 ml 20 ml -200 ml Exam General: The patient is well-developed, Not in acute distress. HEENT: Atraumatic, normocephalic. The pupils are equal and round . Neck: Supple with full range of motion. Chest: Normal expansion of the thorax during inspiration Lungs: Clear to auscultation bilaterally Heart: Normal S1-S2, Regular rhythm and rate. Abdomen: Soft , nontender, nondistended , bowel sounds are present. Extremities: Normal to inspection, no edema no cyanosis Neurologic: Normal mental status,The patient is awake, alert and oriented . Results Result Diagram: 06/16/1661206/16/16612 Medications Medications Current Medications Losartan Potassium (Cozaar) 50 mg BID PO Last administered on 06/19/16t 08:17; Admin Dose 50 MG; Start 06/15/16 at 14:59 Acetaminophen (Tylenol Tab) 650 mg Q6H PRN PO PAIN LEVEL 1-3 OR FEVER Last administered on 06/16/16 18:22; Admin Dose 650 MG; Start 06/15/16 at 14:59 Docusate Sodium (Colace) 100 mg Q12H PRN PO CONSTIPATION Last administered on 20:53; Admin Dose 100 MG; Start 06/15/16 at 14:59 Levetiracetam (Keppra) 500 mg BID PO Last administered on 06/19/16 08:17; Admin Dose 500 MG; Start 06/15/16 at 14:59 Nifedipine (Procardia Xl) 30 mg BID PO Last administered on 06/19/16 08:17; Admin Dose 30 MG; Start 06/15/16 at 14:59 Eye Lubricant (Artificial Tears Oph) 2 drop TID BOTH EYES Last administered on 06/19/16 08:16; Admin Dose 2 DROP; Start 06/15/16 at 14:59 Famotidine (Pepcid) 20 mg BID PO Last administered on 06/19/16 08:17; Admin Dose 20 MG; Start 06/15/16 at 14:59 Hydralazine HCl (Apresoline) 25 mg Q6H PRN PO SBP>165; Start 06/15/16 at 15:30 Senna (Senokot) 1 tab HS PO Last administered on 06/18/16 20:08; Admin Dose 1 TAB; Start 06/15/16 at 21:00 Bisacodyl (Dulcolax Supp) 10 mg DAILY PRN [place] CONSTIPATION; Start 06/15/16 at 15 :00 Lactulose (Enulose) 20 gm DAILY PRN PO CONSTIPATION Last administered on 20:28; Admin Dose 20 GM; Start 06/15/16 at 15:00 Magnesium Hydroxide (Milk Of Mag) 30 ml BID PRN PO CONSTIPATION; Start at 15:00 Diphenhydramine HCl (Benadryl) 50 mg HS PRN PO insomnia Last administered on 22:29; Admin Dose 50 MG; Start 06/15/16 at 21:30 Gentamicin Sulfate (Gentamicin 0.3% Oph Drop) 1 drop TID BOTH EYES Last administered on 06/19/16 08:16; Admin Dose 1 DROP; Start 06/16/16 at 11:30; Stop 06/21/16 at 11:29 Zolpidem Tartrate (Ambien) 5 mg HS PRN PO INSOMNIA Last administered on t 20:10; Admin Dose 5 MG; Start 06/16/16 at 19:30 OLAYINKA HANNA MD Jun 19, 2016 12:33
[2016-06-19 19:00] VITALS: BP 124/77; RESP 14
[2016-06-19] MEDS: SENNA TAB PO SCH (20:45)
[2016-06-19] MEDS: ZOLPIDEM 5 MG TAB PO PRN (20:45)
[2016-06-19] MEDS: ACETAMINOPHEN 325 MG TAB PO PRN (20:45)
[2016-06-20 07:30] VITALS: BP 132/97; RESP 18
[2016-06-20] MEDS: GENTAMICIN 0.3% 5 ML OPH BOTH EYES SCH ×3 (08:38→20:22)
[2016-06-20] MEDS: FAMOTIDINE 20 MG TAB PO SCH ×2 (08:38→20:23)
[2016-06-20] MEDS: ARTIFICIAL TEARS 15 ML OPH BOTH EYES SCH ×3 (08:38→20:22)
[2016-06-20] MEDS: NIFEdipine (XL) 30 MG TAB PO SCH ×2 (08:38→20:23)
[2016-06-20] MEDS: LOSARTAN 50 MG TAB PO SCH ×2 (08:38→20:25)
[2016-06-20] MEDS: LEVETIRACETAM 500 MG TAB PO SCH ×2 (08:38→20:24)
--- NOTE | 2016-06-20 12:11 | CONS ---
Date/Time of Note Date/Time of Note DATE: 06/20/16 TIME: 12:10 Consult Date/Type/Reason Admit Date/Time Jun 15, 2016 at 14:38 Subjective Patient comfortable Objective Vital Signs Date Time Temp Pulse Resp B/P Pulse Ox O2 Delivery O2 Flow Rate FiO2 06/19/16 19:00 98.2 71 14 124/77 95 06/18/16 19:59 Room Air Intake and Output 06/19/16 06/19/16 06/20/16 14:59 22:59 06:59 Intake Total 770 ml 890 ml Output Total 1380 ml 800 ml Balance -610 ml 90 ml INTERDISCIPLINARY TEAM CONFERENCE BOWEL- Cont BLADDER-Cont SKIN- intact OT- DRESSING-sba/min BATHING-min TOILETING-sba/min PT- BED MOBILITY-min TRANSFERS-cga AMBULATION-min 90 feet SPEECH- COGNITION-s DYPHAGIA-regular with thin A/P- Interdisciplinary team conference held today. Please see interdisciplinary sheet. Working toward d.c. on 06/29 with post discharge follow up of physical therapy, occupational therapy. Results/Medications Result Diagram: 06/16/16 0613 06/16/16 0613 Medications Current Medications Losartan Potassium (Cozaar) 50 mg BID PO Last administered on 06/20/16 08:38; Admin Dose 50 MG; Start 06/15/16 at 14:59 Acetaminophen (Tylenol Tab) 650 mg Q6H PRN PO PAIN LEVEL 1-3 OR FEVER Last administered on 06/19/16 20:45; Admin Dose 650 MG; Start 06/15/16 at 14:59 Docusate Sodium (Colace) 100 mg Q12H PRN PO CONSTIPATION Last administered on 20:53; Admin Dose 100 MG; Start 06/15/16 at 14:59 Levetiracetam (Keppra) 500 mg BID PO Last administered on 06/20/16 08:38; Admin Dose 500 MG; Start 06/15/16 at 14:59 Nifedipine (Procardia Xl) 30 mg BID PO Last administered on 06/20/16 08:38; Admin Dose 30 MG; Start 06/15/16 at 14:59 Eye Lubricant (Artificial Tears Oph) 2 drop TID BOTH EYES Last administered on 06/20/16 08:38; Admin Dose 2 DROP; Start 06/15/16 at 14:59 Famotidine (Pepcid) 20 mg BID PO Last administered on 06/20/16 08:38; Admin Dose 20 MG; Start 06/15/16 at 14:59 Hydralazine HCl (Apresoline) 25 mg Q6H PRN PO SBP>165; Start 06/15/16 at 15:30 Senna (Senokot) 1 tab HS PO Last administered on 06/19/16 20:45; Admin Dose 1 TAB; Start 06/15/16 at 21:00 Bisacodyl (Dulcolax Supp) 10 mg DAILY PRN [place] CONSTIPATION; Start 06/15/16 at 15 :00 Lactulose (Enulose) 20 gm DAILY PRN PO CONSTIPATION Last administered on 20:28; Admin Dose 20 GM; Start 06/15/16 at 15:00 Magnesium Hydroxide (Milk Of Mag) 30 ml BID PRN PO CONSTIPATION; Start at 15:00 Diphenhydramine HCl (Benadryl) 50 mg HS PRN PO insomnia Last administered on 22:29; Admin Dose 50 MG; Start 06/15/16 at 21:30 Gentamicin Sulfate (Gentamicin 0.3% Oph Drop) 1 drop TID BOTH EYES Last administered on 06/20/16 08:38; Admin Dose 1 DROP; Start 06/16/16 at 11:30; Stop 06/21/16 at 11:29 Zolpidem Tartrate (Ambien) 5 mg HS PRN PO INSOMNIA Last administered on 20:45; Admin Dose 5 MG; Start 06/16/16 at 19:30 KIRSTY WITT MD Jun 20, 2016 12:11
--- NOTE | 2016-06-20 13:42 | PN ---
Date/Time of Note Date/Time of Note DATE: 06/20/16 TIME: 13:41 Assessment/Plan VTE Prophylaxis VTE Prophylaxis Intervention: SCD's Lines/Catheters IV [facility]ter Type (from [facility]): Saline Lock Urinary Cath still in place: No Assessment/Plan Chief Complaint/Hosp Course ASSESSMENT AND PLAN: 1. 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 Continue physical therapy. Continue to monitor blood pressure. 2. Essential hypertension, well controlled on Losartan and nifedipine. 3. Deep venous thrombosis prophylaxis, on sequential compression devices. Refrain from using any pharmacologic DVT prophylaxis secondary to intracranial hemorrhage. 4. Gastrointestinal prophylaxis, on Pepcid. We will continue to monitor patient closely. Further recommendations, management, and treatment as per clinical course. Problems: Subjective 24 Hr Interval Summary Free Text/Dictation Patient is able to ambulate with min assist Tolerating oral intake Exam/Review of Systems Vital Signs Vitals Vital Signs Date Time Temp Pulse Resp B/P Pulse Ox O2 Delivery O2 Flow Rate FiO2 06/20/16 07:30 98.5 85 18 132/97 99 06/18/16 19:59 Room Air Intake and Output 06/19/16 06/19/16 06/20/16 15:00 23:00 07:00 Intake Total 770 ml 890 ml Output Total 1380 ml 800 ml Balance -610 ml 90 ml Exam General: The patient is well-developed, Not in acute distress. HEENT: Atraumatic, normocephalic. The pupils are equal and round . Neck: Supple with full range of motion. Chest: Normal expansion of the thorax during inspiration Lungs: Clear to auscultation bilaterally Heart: Normal S1-S2, Regular rhythm and rate. Abdomen: Soft , nontender, nondistended , bowel sounds are present. Extremities: Normal to inspection, no edema no cyanosis Neurologic: Normal mental status,The patient is awake, alert and oriented . Results Result Diagram: 06/16/1661206/16/16612 Medications Medications Current Medications Losartan Potassium (Cozaar) 50 mg BID PO Last administered on 06/20/16 08:38; Admin Dose 50 MG; Start 06/15/16 at 14:59 Acetaminophen (Tylenol Tab) 650 mg Q6H PRN PO PAIN LEVEL 1-3 OR FEVER Last administered on 06/19/16 20:45; Admin Dose 650 MG; Start 06/15/16 at 14:59 Docusate Sodium (Colace) 100 mg Q12H PRN PO CONSTIPATION Last administered on 20:53; Admin Dose 100 MG; Start 06/15/16 at 14:59 Levetiracetam (Keppra) 500 mg BID PO Last administered on 06/20/16 08:38; Admin Dose 500 MG; Start 06/15/16 at 14:59 Nifedipine (Procardia Xl) 30 mg BID PO Last administered on 06/20/16 08:38; Admin Dose 30 MG; Start 06/15/16 at 14:59 Eye Lubricant (Artificial Tears Oph) 2 drop TID BOTH EYES Last administered on 06/20/16 12:28; Admin Dose 2 DROP; Start 06/15/16 at 14:59 Famotidine (Pepcid) 20 mg BID PO Last administered on 06/20/16 08:38; Admin Dose 20 MG; Start 06/15/16 at 14:59 Hydralazine HCl (Apresoline) 25 mg Q6H PRN PO SBP>165; Start 06/15/16 at 15:30 Senna (Senokot) 1 tab HS PO Last administered on 06/19/16 20:45; Admin Dose 1 TAB; Start 06/15/16 at 21:00 Bisacodyl (Dulcolax Supp) 10 mg DAILY PRN [place] CONSTIPATION; Start 06/15/16 at 15 :00 Lactulose (Enulose) 20 gm DAILY PRN PO CONSTIPATION Last administered on 20:28; Admin Dose 20 GM; Start 06/15/16 at 15:00 Magnesium Hydroxide (Milk Of Mag) 30 ml BID PRN PO CONSTIPATION; Start at 15:00 Diphenhydramine HCl (Benadryl) 50 mg HS PRN PO insomnia Last administered on 22:29; Admin Dose 50 MG; Start 06/15/16 at 21:30 Gentamicin Sulfate (Gentamicin 0.3% Oph Drop) 1 drop TID BOTH EYES Last administered on 06/20/16 12:28; Admin Dose 1 DROP; Start 06/16/16 at 11:30; Stop 06/21/16 at 11:29 Zolpidem Tartrate (Ambien) 5 mg HS PRN PO INSOMNIA Last administered on t 20:45; Admin Dose 5 MG; Start 06/16/16 at 19:30 OLAYINKA HANNA MD Jun 20, 2016 13:42
[2016-06-20 15:28] VITALS: BP 142/83; RESP 16
[2016-06-20 20:00] VITALS: BP 123/76; RESP 18
[2016-06-20] MEDS: SENNA TAB PO SCH (20:24)
[2016-06-20] MEDS: ZOLPIDEM 5 MG TAB PO PRN (20:24)
[2016-06-21 08:12] VITALS: BP 119/78; RESP 18
[2016-06-21] MEDS: ARTIFICIAL TEARS 15 ML OPH BOTH EYES SCH ×3 (09:36→21:04)
[2016-06-21] MEDS: LOSARTAN 50 MG TAB PO SCH ×2 (09:36→21:04)
[2016-06-21] MEDS: LEVETIRACETAM 500 MG TAB PO SCH ×2 (09:36→21:03)
[2016-06-21] MEDS: GENTAMICIN 0.3% 5 ML OPH BOTH EYES SCH (09:36)
[2016-06-21] MEDS: NIFEdipine (XL) 30 MG TAB PO SCH ×2 (09:37→21:03)
[2016-06-21] MEDS: FAMOTIDINE 20 MG TAB PO SCH ×2 (09:37→21:04)
--- NOTE | 2016-06-21 11:16 | CONS ---
Date/Time of Note Date/Time of Note DATE: 06/21/16 TIME: 11:14 Consult Date/Type/Reason Admit Date/Time Jun 15, 2016 at 14:38 Subjective Doing well, up for therapies ths am Objective cga ambulation pulm- cta Vital Signs Date Time Temp Pulse Resp B/P Pulse Ox O2 Delivery O2 Flow Rate FiO2 06/21/16 08:12 98.7 63 18 119/78 96 06/18/16 19:59 Room Air Intake and Output 06/20/16 06/20/16 06/21/16 15:00 23:00 07:00 Intake Total 120 ml 1000 ml Output Total 200 ml Balance -80 ml 1000 ml Results/Medications Medications Current Medications Losartan Potassium (Cozaar) 50 mg BID PO Last administered on 06/21/16 09:36; Admin Dose 50 MG; Start 06/15/16 at 14:59 Acetaminophen (Tylenol Tab) 650 mg Q6H PRN PO PAIN LEVEL 1-3 OR FEVER Last administered on 06/19/16 20:45; Admin Dose 650 MG; Start 06/15/16 at 14:59 Docusate Sodium (Colace) 100 mg Q12H PRN PO CONSTIPATION Last administered on 20:53; Admin Dose 100 MG; Start 06/15/16 at 14:59 Levetiracetam (Keppra) 500 mg BID PO Last administered on 06/21/16 09:36; Admin Dose 500 MG; Start 06/15/16 at 14:59 Nifedipine (Procardia Xl) 30 mg BID PO Last administered on 06/21/16 09:37; Admin Dose 30 MG; Start 06/15/16 at 14:59 Eye Lubricant (Artificial Tears Oph) 2 drop TID BOTH EYES Last administered on 06/21/16 09:36; Admin Dose 2 DROP; Start 06/15/16 at 14:59 Famotidine (Pepcid) 20 mg BID PO Last administered on 06/21/16 09:37; Admin Dose 20 MG; Start 06/15/16 at 14:59 Hydralazine HCl (Apresoline) 25 mg Q6H PRN PO SBP>165; Start 06/15/16 at 15:30 Senna (Senokot) 1 tab HS PO Last administered on 06/20/16 20:24; Admin Dose 1 TAB; Start 06/15/16 at 21:00 Bisacodyl (Dulcolax Supp) 10 mg DAILY PRN [place] CONSTIPATION; Start 06/15/16 at 15 :00 Lactulose (Enulose) 20 gm DAILY PRN PO CONSTIPATION Last administered on 20:28; Admin Dose 20 GM; Start 06/15/16 at 15:00 Magnesium Hydroxide (Milk Of Mag) 30 ml BID PRN PO CONSTIPATION; Start at 15:00 Diphenhydramine HCl (Benadryl) 50 mg HS PRN PO insomnia Last administered on 22:29; Admin Dose 50 MG; Start 06/15/16 at 21:30 Gentamicin Sulfate (Gentamicin 0.3% Oph Drop) 1 drop TID BOTH EYES Last administered on 06/21/16 09:36; Admin Dose 1 DROP; Start 06/16/16 at 11:30; Stop 06/21/16 at 11:29 Zolpidem Tartrate (Ambien) 5 mg HS PRN PO INSOMNIA Last administered on 20:24; Admin Dose 5 MG; Start 06/16/16 at 19:30 Assessment/Plan Additional Assessment/Plan Rehab- R thalamic hem CVA Continue rehab activities HTN KRISTY WITT MD Jun 21, 2016 11:15
--- NOTE | 2016-06-21 16:15 | PN ---
Date/Time of Note Date/Time of Note DATE: 06/21/16 TIME: 16:14 Assessment/Plan VTE Prophylaxis VTE Prophylaxis Intervention: SCD's Lines/Catheters [facility] Saline Lock Urinary Cath still in place: No Assessment/Plan Chief Complaint/Hosp Course ASSESSMENT AND PLAN: 1. 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 Continue physical therapy. Continue to monitor blood pressure. 2. Essential hypertension, well controlled on Losartan and nifedipine. 3. Deep venous thrombosis prophylaxis, on sequential compression devices. Refrain from using any pharmacologic DVT prophylaxis secondary to intracranial hemorrhage. 4. Gastrointestinal prophylaxis, on Pepcid. We will continue to monitor patient closely. Further recommendations, management, and treatment as per clinical course. Problems: Subjective 24 Hr Interval Summary Free Text/Dictation Denies of any chest pain or shortness of breath Denies of any abdominal pain Ambulating with minimal assist Exam/Review of Systems Vital Signs Vitals Vital Signs Date Time Temp Pulse Resp B/P Pulse Ox O2 Delivery O2 Flow Rate FiO2 06/21/16 08:12 98.7 63 18 119/78 96 06/18/16 19:59 Room Air Intake and Output 06/20/16 06/20/16 06/21/16 15:00 23:00 07:00 Intake Total 120 ml 1000 ml Output Total 200 ml Balance -80 ml 1000 ml Exam General: The patient is well-developed, Not in acute distress. HEENT: Atraumatic, normocephalic. The pupils are equal and round . Neck: Supple with full range of motion. Chest: Normal expansion of the thorax during inspiration Lungs: Clear to auscultation bilaterally Heart: Normal S1-S2, Regular rhythm and rate. Abdomen: Soft , nontender, nondistended , bowel sounds are present. Extremities: Normal to inspection, no edema no cyanosis Neurologic: Normal mental status,The patient is awake, alert and oriented . Medications Medications Current Medications Losartan Potassium (Cozaar) 50 mg BID PO Last administered on 06/21/16 09:36; Admin Dose 50 MG; Start 06/15/16 at 14:59 Acetaminophen (Tylenol Tab) 650 mg Q6H PRN PO PAIN LEVEL 1-3 OR FEVER Last administered on 06/19/16 20:45; Admin Dose 650 MG; Start 06/15/16 at 14:59 Docusate Sodium (Colace) 100 mg Q12H PRN PO CONSTIPATION Last administered on 20:53; Admin Dose 100 MG; Start 06/15/16 at 14:59 Levetiracetam (Keppra) 500 mg BID PO Last administered on 06/21/16 09:36; Admin Dose 500 MG; Start 06/15/16 at 14:59 Nifedipine (Procardia Xl) 30 mg BID PO Last administered on 06/21/16 09:37; Admin Dose 30 MG; Start 06/15/16 at 14:59 Eye Lubricant (Artificial Tears Oph) 2 drop TID BOTH EYES Last administered on 06/21/16 13:45; Admin Dose 2 DROP; Start 06/15/16 at 14:59 Famotidine (Pepcid) 20 mg BID PO Last administered on 06/21/16 09:37; Admin Dose 20 MG; Start 06/15/16 at 14:59 Hydralazine HCl (Apresoline) 25 mg Q6H PRN PO SBP>165; Start 06/15/16 at 15:30 Senna (Senokot) 1 tab HS PO Last administered on 06/20/16 20:24; Admin Dose 1 TAB; Start 06/15/16 at 21:00 Bisacodyl (Dulcolax Supp) 10 mg DAILY PRN [place] CONSTIPATION; Start 06/15/16 at 15 :00 Lactulose (Enulose) 20 gm DAILY PRN PO CONSTIPATION Last administered on 20:28; Admin Dose 20 GM; Start 06/15/16 at 15:00 Magnesium Hydroxide (Milk Of Mag) 30 ml BID PRN PO CONSTIPATION; Start at 15:00 Diphenhydramine HCl (Benadryl) 50 mg HS PRN PO insomnia Last administered on 22:29; Admin Dose 50 MG; Start 06/15/16 at 21:30 Zolpidem Tartrate (Ambien) 5 mg HS PRN PO INSOMNIA Last administered on 20:24; Admin Dose 5 MG; Start 06/16/16 at 19:30 OLAYINKA HANNA MD Jun 21, 2016 16:15
[2016-06-21 20:12] VITALS: BP 123/82; RESP 18
[2016-06-21] MEDS: SENNA TAB PO SCH (21:02)
[2016-06-21] MEDS: ZOLPIDEM 5 MG TAB PO PRN (21:05)
[2016-06-22 08:18] VITALS: BP 127/72; RESP 18
[2016-06-22] MEDS: ARTIFICIAL TEARS 15 ML OPH BOTH EYES SCH ×3 (09:07→21:08)
[2016-06-22] MEDS: LOSARTAN 50 MG TAB PO SCH ×2 (09:08→21:09)
[2016-06-22] MEDS: NIFEdipine (XL) 30 MG TAB PO SCH ×2 (09:08→21:09)
[2016-06-22] MEDS: LEVETIRACETAM 500 MG TAB PO SCH ×2 (09:08→21:09)
[2016-06-22] MEDS: FAMOTIDINE 20 MG TAB PO SCH ×2 (09:08→21:09)
--- NOTE | 2016-06-22 10:51 | CONS ---
Date/Time of Note Date/Time of Note DATE: 06/22/16 TIME: 10:51 Consult Date/Type/Reason Admit Date/Time Jun 15, 2016 at 14:38 Subjective Patient doing well Objective Pulm- cta amb - cga assist Vital Signs Date Time Temp Pulse Resp B/P Pulse Ox O2 Delivery O2 Flow Rate FiO2 06/22/16 08:18 98.7 63 18 127/72 96 06/18/16 19:59 Room Air Intake and Output 06/21/16 06/21/16 06/22/16 14:59 22:59 06:59 Intake Total 900 ml 240 ml 800 ml Output Total 900 ml 700 ml Balance 0 ml 240 ml 100 ml Results/Medications Medications Current Medications Losartan Potassium (Cozaar) 50 mg BID PO Last administered on 06/22/16 09:08; Admin Dose 50 MG; Start 06/15/16 at 14:59 Acetaminophen (Tylenol Tab) 650 mg Q6H PRN PO PAIN LEVEL 1-3 OR FEVER Last administered on 06/19/16 20:45; Admin Dose 650 MG; Start 06/15/16 at 14:59 Docusate Sodium (Colace) 100 mg Q12H PRN PO CONSTIPATION Last administered on 20:53; Admin Dose 100 MG; Start 06/15/16 at 14:59 Levetiracetam (Keppra) 500 mg BID PO Last administered on 06/22/16 09:08; Admin Dose 500 MG; Start 06/15/16 at 14:59 Nifedipine (Procardia Xl) 30 mg BID PO Last administered on 06/22/16 09:08; Admin Dose 30 MG; Start 06/15/16 at 14:59 Eye Lubricant (Artificial Tears Oph) 2 drop TID BOTH EYES Last administered on 06/22/16 09:07; Admin Dose 2 DROP; Start 06/15/16 at 14:59 Famotidine (Pepcid) 20 mg BID PO Last administered on 06/22/16 09:08; Admin Dose 20 MG; Start 06/15/16 at 14:59 Hydralazine HCl (Apresoline) 25 mg Q6H PRN PO SBP>165; Start 06/15/16 at 15:30 Senna (Senokot) 1 tab HS PO Last administered on 06/21/16 21:02; Admin Dose 1 TAB; Start 06/15/16 at 21:00 Bisacodyl (Dulcolax Supp) 10 mg DAILY PRN [place] CONSTIPATION; Start 06/15/16 at 15 :00 Lactulose (Enulose) 20 gm DAILY PRN PO CONSTIPATION Last administered on 20:28; Admin Dose 20 GM; Start 06/15/16 at 15:00 Magnesium Hydroxide (Milk Of Mag) 30 ml BID PRN PO CONSTIPATION; Start at 15:00 Diphenhydramine HCl (Benadryl) 50 mg HS PRN PO insomnia Last administered on 22:29; Admin Dose 50 MG; Start 06/15/16 at 21:30 Zolpidem Tartrate (Ambien) 5 mg HS PRN PO INSOMNIA Last administered on 21:05; Admin Dose 5 MG; Start 06/16/16 at 19:30 Assessment/Plan Additional Assessment/Plan Rehab- R thalamic hem CVA Continue rehab treatment plan HTN KRISTY WITT MD Jun 22, 2016 10:51
--- NOTE | 2016-06-22 13:18 | PN ---
Date/Time of Note Date/Time of Note DATE: 06/22/16 TIME: 13:18 Assessment/Plan VTE Prophylaxis VTE Prophylaxis Intervention: SCD's Lines/Catheters IV [facility]from [facility] Saline Lock Urinary Cath still in place: No Assessment/Plan Chief Complaint/Hosp Course ASSESSMENT AND PLAN: 1. 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 Continue physical therapy. Continue to monitor blood pressure. 2. Essential hypertension, well controlled on Losartan and nifedipine. 3. Deep venous thrombosis prophylaxis, on sequential compression devices. Refrain from using any pharmacologic DVT prophylaxis secondary to intracranial hemorrhage. 4. Gastrointestinal prophylaxis, on Pepcid. We will continue to monitor patient closely. Further recommendations, management, and treatment as per clinical course. 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 HEENT: Atraumatic, normocephalic. The pupils are equal and round . Neck: Supple with full range of motion. Chest: Normal expansion of the thorax during inspiration Lungs: Clear to auscultation bilaterally Heart: Normal S1-S2, Regular rhythm and rate. Abdomen: Soft , nontender, nondistended , bowel sounds are present. Extremities: Normal to inspection, no edema no cyanosis Neurologic: Normal mental status,The patient is awake, alert and oriented . Medications Medications Current Medications Losartan Potassium (Cozaar) 50 mg BID PO Last administered on 06/22/16 09:08; Admin Dose 50 MG; Start 06/15/16 at 14:59 Acetaminophen (Tylenol Tab) 650 mg Q6H PRN PO PAIN LEVEL 1-3 OR FEVER Last administered on 06/19/16 20:45; Admin Dose 650 MG; Start 06/15/16 at 14:59 Docusate Sodium (Colace) 100 mg Q12H PRN PO CONSTIPATION Last administered on 20:53; Admin Dose 100 MG; Start 06/15/16 at 14:59 Levetiracetam (Keppra) 500 mg BID PO Last administered on 06/22/16 09:08; Admin Dose 500 MG; Start 06/15/16 at 14:59 Nifedipine (Procardia Xl) 30 mg BID PO Last administered on 06/22/16 09:08; Admin Dose 30 MG; Start 06/15/16 at 14:59 Eye Lubricant (Artificial Tears Oph) 2 drop TID BOTH EYES Last administered on 06/22/16 12:22; Admin Dose 2 DROP; Start 06/15/16 at 14:59 Famotidine (Pepcid) 20 mg BID PO Last administered on 06/22/16 09:08; Admin Dose 20 MG; Start 06/15/16 at 14:59 Hydralazine HCl (Apresoline) 25 mg Q6H PRN PO SBP>165; Start 06/15/16 at 15:30 Senna (Senokot) 1 tab HS PO Last administered on 06/21/16 21:02; Admin Dose 1 TAB; Start 06/15/16 at 21:00 Bisacodyl (Dulcolax Supp) 10 mg DAILY PRN [place] CONSTIPATION; Start 06/15/16 at 15 :00 Lactulose (Enulose) 20 gm DAILY PRN PO CONSTIPATION Last administered on 20:28; Admin Dose 20 GM; Start 06/15/16 at 15:00 Magnesium Hydroxide (Milk Of Mag) 30 ml BID PRN PO CONSTIPATION; Start at 15:00 Diphenhydramine HCl (Benadryl) 50 mg HS PRN PO insomnia Last administered on 22:29; Admin Dose 50 MG; Start 06/15/16 at 21:30 Zolpidem Tartrate (Ambien) 5 mg HS PRN PO INSOMNIA Last administered on 21:05; Admin Dose 5 MG; Start 06/16/16 at 19:30 OLAYINKA HANNA MD Jun 22, 2016 13:18
[2016-06-22] MEDS: ACETAMINOPHEN 325 MG TAB PO PRN (14:40)
[2016-06-22] MEDS: DOCUSATE SODIUM 100 MG CAP PO PRN (21:08)
[2016-06-22] MEDS: SENNA TAB PO SCH (21:08)
[2016-06-22] MEDS: ZOLPIDEM 5 MG TAB PO PRN (21:13)
[2016-06-22 22:07] VITALS: BP 117/73; RESP 18
[2016-06-23] MEDS: FAMOTIDINE 20 MG TAB PO SCH ×2 (08:26→19:55)
[2016-06-23] MEDS: LEVETIRACETAM 500 MG TAB PO SCH ×2 (08:26→19:53)
[2016-06-23] MEDS: LOSARTAN 50 MG TAB PO SCH ×2 (08:27→19:54)
[2016-06-23] MEDS: ARTIFICIAL TEARS 15 ML OPH BOTH EYES SCH ×3 (08:27→19:55)
[2016-06-23] MEDS: NIFEdipine (XL) 30 MG TAB PO SCH ×2 (08:27→19:55)
[2016-06-23 08:59] VITALS: BP 126/77; RESP 20
--- NOTE | 2016-06-23 11:23 | CONS ---
Date/Time of Note Date/Time of Note DATE: 06/23/16 TIME: 11:22 Consult Date/Type/Reason Admit Date/Time Jun 15, 2016 at 14:38 Subjective In good spirits Objective pulm- CTA sba ambulation cga stair mobility Vital Signs Date Time Temp Pulse Resp B/P Pulse Ox O2 Delivery O2 Flow Rate FiO2 06/23/16 08:59 98.9 67 20 126/77 96 Intake and Output 06/22/16 06/22/16 06/23/16 15:00 23:00 07:00 Intake Total 720 ml 780 ml 350 ml Output Total 750 ml Balance 720 ml 780 ml -400 ml Results/Medications Medications Current Medications Losartan Potassium (Cozaar) 50 mg BID PO Last administered on 06/23/16 08:27; Admin Dose 50 MG; Start 06/15/16 at 14:59 Acetaminophen (Tylenol Tab) 650 mg Q6H PRN PO PAIN LEVEL 1-3 OR FEVER Last administered on 06/22/16 14:40; Admin Dose 650 MG; Start 06/15/16 at 14:59 Docusate Sodium (Colace) 100 mg Q12H PRN PO CONSTIPATION Last administered on 21:08; Admin Dose 100 MG; Start 06/15/16 at 14:59 Levetiracetam (Keppra) 500 mg BID PO Last administered on 06/23/16 08:26; Admin Dose 500 MG; Start 06/15/16 at 14:59 Nifedipine (Procardia Xl) 30 mg BID PO Last administered on 06/23/16 08:27; Admin Dose 30 MG; Start 06/15/16 at 14:59 Eye Lubricant (Artificial Tears Oph) 2 drop TID BOTH EYES Last administered on 06/23/16 08:27; Admin Dose 2 DROP; Start 06/15/16 at 14:59 Famotidine (Pepcid) 20 mg BID PO Last administered on 06/23/16 08:26; Admin Dose 20 MG; Start 06/15/16 at 14:59 Hydralazine HCl (Apresoline) 25 mg Q6H PRN PO SBP>165; Start 06/15/16 at 15:30 Senna (Senokot) 1 tab HS PO Last administered on 06/22/16 21:08; Admin Dose 1 TAB; Start 06/15/16 at 21:00 Bisacodyl (Dulcolax Supp) 10 mg DAILY PRN [place] CONSTIPATION; Start 06/15/16 at 15 :00 Lactulose (Enulose) 20 gm DAILY PRN PO CONSTIPATION Last administered on 20:28; Admin Dose 20 GM; Start 06/15/16 at 15:00 Magnesium Hydroxide (Milk Of Mag) 30 ml BID PRN PO CONSTIPATION; Start at 15:00 Diphenhydramine HCl (Benadryl) 50 mg HS PRN PO insomnia Last administered on 22:29; Admin Dose 50 MG; Start 06/15/16 at 21:30 Zolpidem Tartrate (Ambien) 5 mg HS PRN PO INSOMNIA Last administered on 21:13; Admin Dose 5 MG; Start 06/16/16 at 19:30 Assessment/Plan Additional Assessment/Plan Rehab- R thalamic hem CVA Continue rehab therapies HTN KRISTY WITT MD Jun 23, 2016 11:23
--- NOTE | 2016-06-23 13:51 | PN ---
Date/Time of Note Date/Time of Note DATE: 06/23/16 TIME: 13:50 Assessment/Plan VTE Prophylaxis VTE Prophylaxis Intervention: SCD's Lines/Catheters IV [facility] Type (from [facility] Saline Lock Urinary Cath still in place: No Assessment/Plan Chief Complaint/Hosp Course ASSESSMENT AND PLAN: 1. 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 Continue physical therapy. Continue to monitor blood pressure. 2. Essential hypertension, well controlled on Losartan and nifedipine. 3. Deep venous thrombosis prophylaxis, on sequential compression devices. Refrain from using any pharmacologic DVT prophylaxis secondary to intracranial hemorrhage. 4. Gastrointestinal prophylaxis, on Pepcid. We will continue to monitor patient closely. Further recommendations, management, and treatment as per clinical course. Problems: Subjective 24 Hr Interval Summary Free Text/Dictation No acute changes Patient denies of any headache or lightheadedness Denies of any weakness in his extremities Ambulating with minimal assist Exam/Review of Systems Vital Signs Vitals Vital Signs Date Time Temp Pulse Resp B/P Pulse Ox O2 Delivery O2 Flow Rate FiO2 06/23/16 08:59 98.9 67 20 126/77 96 Intake and Output 06/22/16 06/22/16 06/23/16 14:59 22:59 06:59 Intake Total 720 ml 780 ml 350 ml Output Total 750 ml Balance 720 ml 780 ml -400 ml Exam General: The patient is well-developed, Not in acute distress. HEENT: Atraumatic, normocephalic. The pupils are equal and round . Neck: Supple with full range of motion. Chest: Normal expansion of the thorax during inspiration Lungs: Clear to auscultation bilaterally Heart: Normal S1-S2, Regular rhythm and rate. Abdomen: Soft , nontender, nondistended , bowel sounds are present. Extremities: Normal to inspection, no edema no cyanosis Neurologic: Normal mental status,The patient is awake, alert and oriented . Medications Medications Current Medications Losartan Potassium (Cozaar) 50 mg BID PO Last administered on 06/23/16 08:27; Admin Dose 50 MG; Start 06/15/16 at 14:59 Acetaminophen (Tylenol Tab) 650 mg Q6H PRN PO PAIN LEVEL 1-3 OR FEVER Last administered on 06/22/16 14:40; Admin Dose 650 MG; Start 06/15/16 at 14:59 Docusate Sodium (Colace) 100 mg Q12H PRN PO CONSTIPATION Last administered on 21:08; Admin Dose 100 MG; Start 06/15/16 at 14:59 Levetiracetam (Keppra) 500 mg BID PO Last administered on 06/23/16 08:26; Admin Dose 500 MG; Start 06/15/16 at 14:59 Nifedipine (Procardia Xl) 30 mg BID PO Last administered on 06/23/16 08:27; Admin Dose 30 MG; Start 06/15/16 at 14:59 Eye Lubricant (Artificial Tears Oph) 2 drop TID BOTH EYES Last administered on 06/23/16 12:59; Admin Dose 2 DROP; Start 06/15/16 at 14:59 Famotidine (Pepcid) 20 mg BID PO Last administered on 06/23/16 08:26; Admin Dose 20 MG; Start 06/15/16 at 14:59 Hydralazine HCl (Apresoline) 25 mg Q6H PRN PO SBP>165; Start 06/15/16 at 15:30 Senna (Senokot) 1 tab HS PO Last administered on 06/22/16 21:08; Admin Dose 1 TAB; Start 06/15/16 at 21:00 Bisacodyl (Dulcolax Supp) 10 mg DAILY PRN [place] CONSTIPATION; Start 06/15/16 at 15 :00 Lactulose (Enulose) 20 gm DAILY PRN PO CONSTIPATION Last administered on 20:28; Admin Dose 20 GM; Start 06/15/16 at 15:00 Magnesium Hydroxide (Milk Of Mag) 30 ml BID PRN PO CONSTIPATION; Start at 15:00 Diphenhydramine HCl (Benadryl) 50 mg HS PRN PO insomnia Last administered on 22:29; Admin Dose 50 MG; Start 06/15/16 at 21:30 Zolpidem Tartrate (Ambien) 5 mg HS PRN PO INSOMNIA Last administered on 21:13; Admin Dose 5 MG; Start 06/16/16 at 19:30 OLAYINKA HANNA MD Jun 23, 2016 13:51
[2016-06-23 19:30] VITALS: BP 118/77; RESP 18
[2016-06-23] MEDS: SENNA TAB PO SCH (19:55)
[2016-06-23] MEDS: ZOLPIDEM 5 MG TAB PO PRN (19:56)
[2016-06-24 07:30] VITALS: BP 110/70; RESP 18
[2016-06-24] MEDS: ARTIFICIAL TEARS 15 ML OPH BOTH EYES SCH ×3 (08:16→20:06)
[2016-06-24] MEDS: FAMOTIDINE 20 MG TAB PO SCH (08:16)
[2016-06-24] MEDS: LEVETIRACETAM 500 MG TAB PO SCH ×2 (08:16→20:05)
[2016-06-24] MEDS: LOSARTAN 50 MG TAB PO SCH ×2 (08:16→20:06)
[2016-06-24] MEDS: NIFEdipine (XL) 30 MG TAB PO SCH ×2 (08:18→20:05)
--- NOTE | 2016-06-24 12:29 | CONS ---
Date/Time of Note Date/Time of Note DATE: 06/24/16 TIME: 12:28 Consult Date/Type/Reason Admit Date/Time Jun 15, 2016 at 14:38 Subjective Up with therapy Objective sba ambulation and stairs Vital Signs Date Time Temp Pulse Resp B/P Pulse Ox O2 Delivery O2 Flow Rate FiO2 06/24/16 07:30 97.5 69 18 110/70 98 Intake and Output 06/23/16 06/23/16 06/24/16 15:00 23:00 07:00 Intake Total 920 ml 480 ml 250 ml Output Total 200 ml 850 ml Balance 920 ml 280 ml -600 ml Results/Medications Medications Current Medications Losartan Potassium (Cozaar) 50 mg BID PO Last administered on 06/24/16 08:16; Admin Dose 50 MG; Start 06/15/16 at 14:59 Acetaminophen (Tylenol Tab) 650 mg Q6H PRN PO PAIN LEVEL 1-3 OR FEVER Last administered on 06/22/16 14:40; Admin Dose 650 MG; Start 06/15/16 at 14:59 Docusate Sodium (Colace) 100 mg Q12H PRN PO CONSTIPATION Last administered on 21:08; Admin Dose 100 MG; Start 06/15/16 at 14:59 Levetiracetam (Keppra) 500 mg BID PO Last administered on 06/24/16 08:16; Admin Dose 500 MG; Start 06/15/16 at 14:59 Nifedipine (Procardia Xl) 30 mg BID PO Last administered on 06/23/16 19:55; Admin Dose 30 MG; Start 06/15/16 at 14:59 Eye Lubricant (Artificial Tears Oph) 2 drop TID BOTH EYES Last administered on 06/24/16 08:16; Admin Dose 2 DROP; Start 06/15/16 at 14:59 Famotidine (Pepcid) 20 mg BID PO Last administered on 06/24/16 08:16; Admin Dose 20 MG; Start 06/15/16 at 14:59 Hydralazine HCl (Apresoline) 25 mg Q6H PRN PO SBP>165; Start 06/15/16 at 15:30 Senna (Senokot) 1 tab HS PO Last administered on 06/23/16 19:55; Admin Dose 1 TAB; Start 06/15/16 at 21:00 Bisacodyl (Dulcolax Supp) 10 mg DAILY PRN [place] CONSTIPATION; Start 06/15/16 at 15 :00 Lactulose (Enulose) 20 gm DAILY PRN PO CONSTIPATION Last administered on 20:28; Admin Dose 20 GM; Start 06/15/16 at 15:00 Magnesium Hydroxide (Milk Of Mag) 30 ml BID PRN PO CONSTIPATION; Start at 15:00 Diphenhydramine HCl (Benadryl) 50 mg HS PRN PO insomnia Last administered on 22:29; Admin Dose 50 MG; Start 06/15/16 at 21:30 Zolpidem Tartrate (Ambien) 5 mg HS PRN PO INSOMNIA Last administered on 19:56; Admin Dose 5 MG; Start 06/16/16 at 19:30 Assessment/Plan Additional Assessment/Plan Rehab- R thalamic hem CVA Continue rehab therapies. Anticipate dc this KRISTY ARROYO MD Jun 24, 2016 12:29
--- NOTE | 2016-06-24 16:17 | PN ---
Date/Time of Note Date/Time of Note DATE: 06/24/16 TIME: 16:14 Assessment/Plan VTE Prophylaxis VTE Prophylaxis Intervention: ambulation, contraindicated (ICH) Lines/Catheters IV Catheter Type (from Nrs): Saline Lock Urinary Cath still in place: No Assessment/Plan Chief Complaint/Hosp Course S- no events. doing well. O- vss PE no pallor/ droop s1s2 reg; no m r g ctab bs +; nt nd no r r g ext - no edema neuro - nonfocal A/P 1- Ac Thalamic ICH/ IVH; carotid/echo ok. stable cont rehab. keppra ~ 6months. will see pcp Dr Zeng -1wk; needs to see neuro ~1-2months 2- Htn DD EF=65% Problems: Exam/Review of Systems Vital Signs Vitals Vital Signs Date Time Temp Pulse Resp B/P Pulse Ox O2 Delivery O2 Flow Rate FiO2 06/24/16 07:30 97.5 69 18 110/70 98 Intake and Output 06/23/16 06/23/16 06/24/16 15:00 23:00 07:00 Intake Total 920 ml 480 ml 250 ml Output Total 200 ml 850 ml Balance 920 ml 280 ml -600 ml Medications Medications Current Medications Losartan Potassium (Cozaar) 50 mg BID PO Last administered on 06/24/16 08:16; Admin Dose 50 MG; Start 06/15/16 at 14:59 Acetaminophen (Tylenol Tab) 650 mg Q6H PRN PO PAIN LEVEL 1-3 OR FEVER Last administered on 06/22/16 14:40; Admin Dose 650 MG; Start 06/15/16 at 14:59 Docusate Sodium (Colace) 100 mg Q12H PRN PO CONSTIPATION Last administered on 21:08; Admin Dose 100 MG; Start 06/15/16 at 14:59 Levetiracetam (Keppra) 500 mg BID PO Last administered on 06/24/16 08:16; Admin Dose 500 MG; Start 06/15/16 at 14:59 Nifedipine (Procardia Xl) 30 mg BID PO Last administered on 06/23/16 19:55; Admin Dose 30 MG; Start 06/15/16 at 14:59 Eye Lubricant (Artificial Tears Oph) 2 drop TID BOTH EYES Last administered on 06/24/16 14:44; Admin Dose 2 DROP; Start 06/15/16 at 14:59 Famotidine (Pepcid) 20 mg BID PO Last administered on 06/24/16 08:16; Admin Dose 20 MG; Start 06/15/16 at 14:59 Hydralazine HCl (Apresoline) 25 mg Q6H PRN PO SBP>165; Start 06/15/16 at 15:30 Senna (Senokot) 1 tab HS PO Last administered on 06/23/16 19:55; Admin Dose 1 TAB; Start 06/15/16 at 21:00 Bisacodyl (Dulcolax Supp) 10 mg DAILY PRN [place] CONSTIPATION; Start 06/15/16 at 15 :00 Lactulose (Enulose) 20 gm DAILY PRN PO CONSTIPATION Last administered on 20:28; Admin Dose 20 GM; Start 06/15/16 at 15:00 Magnesium Hydroxide (Milk Of Mag) 30 ml BID PRN PO CONSTIPATION; Start at 15:00 Diphenhydramine HCl (Benadryl) 50 mg HS PRN PO insomnia Last administered on 22:29; Admin Dose 50 MG; Start 06/15/16 at 21:30 Zolpidem Tartrate (Ambien) 5 mg HS PRN PO INSOMNIA Last administered on 19:56; Admin Dose 5 MG; Start 06/16/16 at 19:30 CHOLO ZHAO MD Jun 24, 2016 16:17
[2016-06-24] MEDS: ZOLPIDEM 5 MG TAB PO PRN (20:04)
[2016-06-24] MEDS: SENNA TAB PO SCH (20:05)
[2016-06-24 20:23] VITALS: BP 121/75; RESP 18
[2016-06-25 08:00] VITALS: BP 143/84; PULSE 72; RESP 20
[2016-06-25] MEDS: NIFEdipine (XL) 30 MG TAB PO SCH ×2 (08:02→20:49)
[2016-06-25] MEDS: ARTIFICIAL TEARS 15 ML OPH BOTH EYES SCH ×3 (08:02→20:50)
[2016-06-25] MEDS: LOSARTAN 50 MG TAB PO SCH ×2 (08:02→20:50)
[2016-06-25] MEDS: LEVETIRACETAM 500 MG TAB PO SCH ×2 (08:02→20:50)
[2016-06-25 08:54] VITALS: BP 143/84; RESP 18
--- NOTE | 2016-06-25 10:12 | CONS ---
Date/Time of Note Date/Time of Note DATE: 06/25/16 TIME: 10:11 Consult Date/Type/Reason Admit Date/Time Jun 15, 2016 at 14:38 Subjective Doing well, looking forward to dc Objective sba ambulation, stairs Vital Signs Date Time Temp Pulse Resp B/P Pulse Ox O2 Delivery O2 Flow Rate FiO2 06/25/16 08:54 98.4 72 18 143/84 98 Intake and Output 06/24/16 06/24/16 06/25/16 15:00 23:00 07:00 Intake Total 720 ml 560 ml Output Total 850 ml Balance 720 ml -290 ml Results/Medications Medications Current Medications Losartan Potassium (Cozaar) 50 mg BID PO Last administered on 06/25/16 08:02; Admin Dose 50 MG; Start 06/15/16 at 14:59 Acetaminophen (Tylenol Tab) 650 mg Q6H PRN PO PAIN LEVEL 1-3 OR FEVER Last administered on 06/22/16 14:40; Admin Dose 650 MG; Start 06/15/16 at 14:59 Docusate Sodium (Colace) 100 mg Q12H PRN PO CONSTIPATION Last administered on 21:08; Admin Dose 100 MG; Start 06/15/16 at 14:59 Levetiracetam (Keppra) 500 mg BID PO Last administered on 06/25/16 08:02; Admin Dose 500 MG; Start 06/15/16 at 14:59 Nifedipine (Procardia Xl) 30 mg BID PO Last administered on 06/25/16 08:02; Admin Dose 30 MG; Start 06/15/16 at 14:59 Eye Lubricant (Artificial Tears Oph) 2 drop TID BOTH EYES Last administered on 06/25/16 08:02; Admin Dose 2 DROP; Start 06/15/16 at 14:59 Hydralazine HCl (Apresoline) 25 mg Q6H PRN PO SBP>165; Start 06/15/16 at 15:30 Senna (Senokot) 1 tab HS PO Last administered on 06/24/16 20:05; Admin Dose 1 TAB; Start 06/15/16 at 21:00 Bisacodyl (Dulcolax Supp) 10 mg DAILY PRN [place] CONSTIPATION; Start 06/15/16 at 15 :00 Lactulose (Enulose) 20 gm DAILY PRN PO CONSTIPATION Last administered on 20:28; Admin Dose 20 GM; Start 06/15/16 at 15:00 Magnesium Hydroxide (Milk Of Mag) 30 ml BID PRN PO CONSTIPATION; Start at 15:00 Zolpidem Tartrate (Ambien) 5 mg HS PRN PO INSOMNIA Last administered on 20:04; Admin Dose 5 MG; Start 06/16/16 at 19:30 Assessment/Plan Additional Assessment/Plan Rehab- R thalamic hem CVA Excellent progress. DC tomorrow HTN KRISTY WITT MD Jun 25, 2016 10:12
[2016-06-25] MEDS ORDERED: AL HYDROX/MG HYDROX/SIMETH 30 ML CUP PO PRN ×2 (17:30)
[2016-06-25 17:50] LABS: BASOPHILS % 0.5 % (0.0-2.0); EOSINOPHILS # 0.1 10^3/ul (0.0-0.5); EOSINOPHILS % 1.9 % (0.0-7.0); HEMATOCRIT 48.3 % (42.0-52.0); HEMOGLOBIN 16.2 g/dl (14.0-18.0); LYMPHOCYTES # 1.4 10^3/ul (0.8-2.9); LYMPHOCYTES % 18.9 % (15.0-51.0); MEAN CORPUSCULAR HEMOGLOBIN 32.5 pg (29.0-33.0); MEAN CORPUSCULAR HGB CONC 33.5 g/dl (32.0-37.0); MEAN CORPUSCULAR VOLUME 97.3 fl (82.0-101.0); MEAN PLATELET VOLUME 7.3 fl (7.4-10.4); MONOCYTE # 0.6 10^3/ul (0.3-0.9); MONOCYTES % 8.2 % (0.0-11.0); NEUTROPHIL # 5.2 10^3/ul (1.6-7.5); NEUTROPHILS % 70.5 % (39.0-77.0); PLATELET COUNT 344 10^3/UL (140-440); RED BLOOD COUNT 4.97 10^6/ul (4.70-6.10); RED CELL DISTRIBUTION WIDTH 12.3 % (11.5-14.5); UNCORRECTED WBC 7.4 10^3/ul (4.8-10.8); WHITE BLOOD COUNT 7.4 10^3/ul (4.8-10.8)
[2016-06-25 17:57] LABS: CONDITION 1
[2016-06-25 18:01] LABS: POTASSIUM 4.6 mmol/L (3.5-5.1)
[2016-06-25 18:03] LABS: CREATININE 0.94 mg/dl (0.61-1.24)
[2016-06-25 18:04] LABS: CALCIUM 9.5 mg/dl (8.4-10.2)
[2016-06-25 20:14] VITALS: BP 130/81; RESP 18
[2016-06-25] MEDS: SENNA TAB PO SCH (20:49)
[2016-06-25] MEDS: ZOLPIDEM 5 MG TAB PO PRN (20:50)
[2016-06-26 07:30] VITALS: BP 102/57; RESP 18
[2016-06-26] MEDS: DOCUSATE SODIUM 100 MG CAP PO PRN (08:12)
[2016-06-26] MEDS: NIFEdipine (XL) 30 MG TAB PO SCH (08:12)
[2016-06-26] MEDS: ARTIFICIAL TEARS 15 ML OPH BOTH EYES SCH (08:12)
[2016-06-26] MEDS: LEVETIRACETAM 500 MG TAB PO SCH (08:12)
[2016-06-26] MEDS: LOSARTAN 50 MG TAB PO SCH (08:12)
[2016-06-26 08:15] VITALS: BP 125/88; PULSE 84; RESP 18
--- NOTE | 2016-06-28 23:45 | DS ---
DATE OF ADMISSION: 06/15/2016 DATE OF DISCHARGE: 06/26/2016 ADMISSION DIAGNOSES: 1. Right thalamic hemorrhagic cerebrovascular accident. 2. Hypertension. 3. Headache. 4. Impairments in self-care and mobility. DISCHARGE DIAGNOSES: 1. Right thalamic hemorrhagic cerebrovascular accident. 2. Hypertension. 3. Improvements in self-care and mobility. HOSPITAL COURSE: The patient was admitted for comprehensive interdisciplinary acute rehab and made excellent functional gains during the course of the stay. The patient progressed from initial minim al to moderate assist for self-care and mobility tasks and progressed to the point of supervised to standby assist for all areas of self-care and mobility including ambulating over 150 feet with the u se of a front-wheel walker. The patient is being discharged home with a recommendation of [facility] physical therapy and occupational therapy followup. DISCHARGE MEDICATIONS: Per the medication reconciliation sheet. CONDITION ON DISCHARGE: Stable. Dictated By: KRISTY GORE/CHELY Conf#: [id number] DID#: [id number]
== END 2016-06-26 11:00 | disposition home health service (06) | DRG 57 ==
LOC: VRC 14:38
PROVIDERS: ADMIT Physical Medicine & Rehabilitation; ATTEND Family Medicine
PROC: F07Z5ZZ Bed Mobility Treatment (ICD-10-PCS; principal; 2016-06-15)
PROC: F08Z0ZZ Bathing/Showering Techniques Treatment (ICD-10-PCS; 2016-06-15)
PROC: F06ZDZZ Swallowing Dysfunction Treatment (ICD-10-PCS; 2016-06-15)
DX: I69.391 Dysphagia following cerebral infarction (principal); R13.10 Dysphagia, unspecified; I10 Essential (primary) hypertension; R51 Headache
CPT/HCPCS: 80048; 80053; 81003; 85025; 87081; 87086; 92507; 92523; 92526; 92610; 95852; 97001; 97003; 97110; 97112; 97116; 97150; 97163; 97166; 97530; 97535